=== PATIENT | male | born 1980 | race American Indian/Alaskan Native ===

== ENCOUNTER 2017-01-24 07:04 | Emergency (ER) | payer OTHER ==
[2017-01-24 07:04] VITALS: BMI 23.4
[2017-01-24 07:41] VITALS: TEMP 97.6
--- NOTE | 2017-01-24 07:42 | ED PDOC ---
Arrival/HPI - General Chief Complaint: Abdominal Pain Time Seen by Provider: 01/24/17 07:09 - History of Present Illness Narrative History of Present Illness (Text): 36 year old male with a past medical history significant for peptic ulcer disease, cardiomyopathy (unspecified) with estimated LVEF of 37.5%, malignant hypertension (confirmed by renal biopsy) who presents with 9 days of upper abdominal pain. He was just starting his meal and drank a few sips of some warm [place] soup, and within seconds developed some acute throbbing, namely midline abdominal pain. The pain has been constant, improves with belching, not improved with Antacids, worsened with lying supine, eating, or fasting for more than 5 hours. Yesterday, he took Nexium on a full-stomach and felt worse. He denies any associated chest pain, dyspnea, diaphoresis, nausea, or vomiting. In the past he took Prevacid in preventing these attacks. 01/24/17 07:35 (Rebeka Rico) Past Medical History - Provider Review Nursing Documentation Reviewed: Yes - Infectious Disease Hx of Infectious Diseases: None - Tetanus Immunization Tetanus Immunization: Unknown - HEENT Hx HEENT Disorder: Yes (eyeglasses) - Musculoskeletal/Rheumatological Hx Falls: No - Psychiatric Hx Substance Use: (pt denied) - Anesthesia Hx Anesthesia: No Hx Anesthesia Reactions: No Hx Malignant Hyperthermia: No Family/Social History - Physician Review Nursing Documentation Reviewed: Yes Family/Social History: Hypertension Smoking Status: Light Smoker < 10 Cigarettes Daily Hx Alcohol Use: Yes (social) Hx Substance Use: (pt denied) Allergies/Home Meds Allergies/Adverse Reactions: Allergies No Known Allergies Allergy (Verified 01/24/17 07:37) Home Medications: Home Meds Medication Instructions Recorded Confirmed Lisinopril [Zestril] 30 mg PO DAILY 01/24/17 01/24/17 hydroCHLOROthiazide [Hydrodiuril] 25 mg PO DAILY 01/24/17 01/24/17 Review of Systems - Review of Systems Constitutional: Normal. absent: Weight Change, Fevers, Night Sweats ENT: Normal. absent: Sore Throat, Rhinorrhea Cardiovascular: Normal. absent: Chest Pain, Palpitations, Edema Gastrointestinal: Abdominal Pain, Food Intolerance. absent: Constipation, Diarrhea, Hematochezia, Hematemesis Genitourinary Male: absent: Dysuria, Frequency, Hematuria Musculoskeletal: absent: Arthralgias, Back Pain Skin: Normal. absent: Rash, Pruritis, Skin Lesions Neurological: Normal. absent: Headache, Dizziness, Focal Weakness Endocrine: absent: Diaphoresis, Polyuria, Polydipsia Hemo/Lymphatic: absent: Easy Bleeding, Easy Bruising Psychiatric: absent: Anxiety, Depression Physical Exam Vital Signs Reviewed: Yes Temperature: Afebrile Blood Pressure: Hypertensive Pulse: Regular Respiratory Rate: Normal Appearance: Positive for: Non-Toxic, Comfortable Pain Distress: Mild Mental Status: Positive for: Alert and Oriented X 3 - Systems Exam Head: Present: Atraumatic, Normocephalic Pupils: Present: PERRL Extroacular Muscles: Present: EOMI Conjunctiva: Present: Normal Mouth: Present: Moist Mucous Membranes Pharnyx: Present: Normal. No: ERYTHEMA, EXUDATE Respiratory/Chest: Present: Clear to Auscultation, Good Air Exchange. No: Respiratory Distress Cardiovascular: Present: Regular Rate and Rhythm, Normal S1, S2 Abdomen: Present: Tenderness, Normal Bowel Sounds. No: Distention, Peritoneal Signs, McBurney's Point Tender Back: Present: Normal Inspection. No: CVA Tenderness Upper Extremity: Present: Normal Inspection. No: Cyanosis, Edema Lower Extremity: Present: Normal Inspection. No: Edema, CALF TENDERNESS Neurological: Present: CN II-XII Intact, Speech Normal Skin: Present: Warm, Dry, Normal Color Psychiatric: Present: Alert, Oriented x 3, Normal Insight Vital Signs Temp Pulse Resp BP Pulse Ox 01/24/17 13:00 78 18 144/77 99 01/24/17 11:04 62 18 123/78 98 01/24/17 09:31 177/121 H 01/24/17 08:45 191/135 H 01/24/17 07:26 97.6 F 99 H 17 153/109 H 99 Medical Decision Making - EKG Interpretation Interpreted by ED Physician: Yes Type: 12 lead EKG ED Course and Treatment: EKG shows LVH with strain, T-wave inversions in leads V5 and V6, asymmetrical rise and fall of T-waves, no interval change compared to prior EKG. 01/24/17 08:04 Labs show relative hemoconcentration: H/H of 17.7/48.0; BUN/Cr of 35/2.0. 1 L of Normal Saline being administered. Pepcid 20 mg IVP given. 0.1 PO of Clonidine given for blood pressure of 190/135, followed by 0.2 of Clonidine. 01/24/17 09:09 Current, blood pressure is 120/80. Will continue to monitor patient. 01/24/17 12:25 (Rebeka Rico) Patient Seen With Resident: In agreement with resident note which contains more details about the patient. Patient was seen and evaluated with resident. Came up with plan and treatment together. Patient on my examination reports abdominal pain WORSE WITH EATING NOT EXERTION. He has significant past history of hypertension, cardiac disease, although on current exam he has no chest pain or sob or exertional symptoms. Abnormal EKG noted but similar to past EKG and I feel with clinical correlation EKG likely LVH with strain pattern as no chest pain or sob with exertion, and symptoms only with meals. Pain MILD. No pulsatile masses. No motor or sensory deficits on exam. CT abdomen reviewed no free air or obstruction. BP controlled with serial exams after medication. Patient states to me he has not had BM for three days, not typical for him. Given CT findings, suspect component of PUD/Gastritis with constipation. Will d/c with PPI, stool softener, follow-up with PMD. Stressed need for GI follow-up given symptoms to r/o PUD, mass/malignancy although as comfortable with no systemic symptoms and BP controlled will discharge with close follow-up. (Bertram Sheppard) - Lab Interpretations Lab Results: 01/24/17 07:58 01/24/17 07:58 Lab Results 01/24/17 09:40: Urine Color yellow, Urine Appearance Clear, Urine pH 6.5, Ur Specific [place] <= 1.005, Urine Protein Negative, Urine Glucose (UA) Negative, Urine Ketones Negative, Urine Blood Negative, Urine Nitrate Negative, Urine Bilirubin Negative, Urine Urobilinogen 0.2, Ur Leukocyte Esterase Negative 01/24/17 07:58: Sodium 133, Potassium 4.3, Chloride 93 L, Carbon Dioxide 30, Anion Gap 14, BUN 35 H, Creatinine 2.0 H, Est GFR ( Amer) 47, Est GFR ( Non-Af Amer) 38, Random Glucose 106, Calcium 9.8, Total Bilirubin 0.7, AST 38, ALT 43, Alkaline Phosphatase 75, Lactate Dehydrogenase 477, Total Creatine Kinase 168, Troponin I 0.05 D, Total Protein 8.1, Albumin 4.7, Globulin 3.4, Albumin/Globulin Ratio 1.4, Lipase 168 01/24/17 07:58: WBC 9.2, RBC 5.27, Hgb 17.7, Hct 48.0, MCV 91.1, MCH 33.6, MCHC 36.9, RDW 12.3, Plt Count 302, MPV 7.6, Gran % 67.6, Lymph % (Auto) 21.9 L, [place] % (Auto) 7.5 H, Eos % (Auto) 2.8, Baso % (Auto) 0.2, Gran # 6.22, Lymph # 2.0, Finney # 0.7 H, Eos # 0.3, Baso # 0.02 - RAD Interpretation Radiology Orders: 01/24/17 07:43 CHEST PORTABLE [RAD] Stat 01/24/17 09:39 ABD & PELVIS W/O PO OR IV CONT [CT] Stat - Medication Orders Current Medication Orders: Discontinued Medications Clonidine HCl (Catapres) 0.1 mg PO STAT STA Stop: 01/24/17 08:20 Last Admin: 01/24/17 08:45 Dose: 0.1 mg MAR Pulse and Blood Pressure Document 01/24/17 08:45 MB (Rec: 01/24/17 08:46 MB [id number]) Blood Pressure Blood Pressure (100/60-150/90 mm Hg) 191/135 Clonidine HCl (Catapres) 0.2 mg PO STAT STA Stop: 01/24/17 09:18 Last Admin: 01/24/17 09:31 Dose: 0.2 mg MAR Pulse and Blood Pressure Document 01/24/17 09:31 MB (Rec: 01/24/17 09:32 MB [id number]) Blood Pressure Blood Pressure (100/60-150/90 mm Hg) 177/121 Famotidine (Pepcid) 20 mg IVP STAT STA Stop: 01/24/17 07:45 Last Admin: 01/24/17 08:06 Dose: 20 mg IVP Administration Document 01/24/17 08:06 MB (Rec: 01/24/17 08:06 MB [id number]) Charges for Administration # of IVP Administrations 1 Famotidine (Pepcid) 20 mg IVP STAT STA Stop: 01/24/17 13:13 Last Admin: 01/24/17 13:36 Dose: Not Given Non-Admin Reason: Patient Refused Sodium Chloride (Sodium Chloride 0.9%) 1,000 mls @ 999 mls/hr IV .Q1H1M STA Stop: 01/24/17 09:21 Last Admin: 01/24/17 08:46 Dose: 999 mls/hr eMAR Start Stop Document 01/24/17 08:46 MB (Rec: 01/24/17 08:46 MB [id number]) Intravenous Solution Start Date 01/24/17 Start Time 08:46 Disposition/Present on Arrival - Present on Arrival Any Indicators Present on Arrival: No History of DVT/PE: No History of Uncontrolled Diabetes: No Urinary Catheter: No History Surgical Site Infection Following: None - Disposition Have Diagnosis and Disposition been Completed?: Yes Disposition Time: 13:17 Patient Plan: Discharge - Disposition Diagnosis: Abdominal pain, Gastritis, Constipation, Hypertension Disposition: HOME/ ROUTINE Condition: STABLE Discharge Instructions (ExitCare): Peptic Ulcer (ED), Diet for Ulcers and Gastritis (GEN) Additional Instructions: 1) Please follow up with your PMD within the next week 2) Take any prescribed medications as directed. 3) Please return to the ED for any worsening symptoms. Prescriptions: Docusate Sodium [Colace] 100 mg PO BID #10 capsule Famotidine [Pepcid] 20 mg PO DAILY #28 tab Forms: [employer] ([place]ian)
[2017-01-24 08:01] LABS: BASO # 0.02 K/mm3 (0.0-2.0); BASO % 0.2 % (0.0-3.0); EOS # 0.3 (0.0-0.7); EOS % 2.8 % (1.5-5.0); GRAN # 6.22 (1.4-6.5); GRAN % 67.6 % (50.0-68.0); LYMPH % 21.9 % (22.0-35.0); MEAN CELL VOLUME 91.1 fl (80.0-105.0); MEAN CORPUSCULAR HEMOGLOBIN 33.6 pg (25.0-35.0); MEAN CORPUSCULAR HGB CONC 36.9 g/dl (31.0-37.0); MEAN PLATELET VOLUME 7.6 fl (7.0-11.0); MONO # 0.7 (0.1-0.6); MONO % 7.5 % (1.0-6.0); RED CELL DISTRIBUTION WIDTH 12.3 % (11.5-14.5); WHITE BLOOD COUNT 9.2 10^3/ul (4.5-11.0)
[2017-01-24 08:13] LABS: ALB/GLOB RATIO 1.4 (1.1-1.8); BILIRUBIN,TOTAL 0.7 mg/dL (0.2-1.3); CALCIUM 9.8 mg/dL (8.4-10.5); POTASSIUM 4.3 mmol/L (3.6-5.0); TOTAL PROTEIN 8.1 g/dL (5.8-8.3)
[2017-01-24] MEDS ORDERED: Sodium Chloride 0.9% 1,000 ML IV STA (08:21)
[2017-01-24 08:24] LABS: TROPONIN I 0.05 ng/mL
[2017-01-24 09:48] LABS: PH,URINE 6.5 (4.7-8.0); URINE BILIRUBIN NEGATIVE (NEGATIVE); URINE BLOOD NEGATIVE (NEGATIVE); URINE GLUCOSE (UA) NEGATIVE (NEGATIVE); URINE KETONE NEGATIVE (NEGATIVE); URINE LEUKOCYTE ESTERASE NEGATIVE Leu/uL (NEGATIVE); URINE PROTEIN NEGATIVE mg/dL (<30 mg/dL); URINE UROBILINOGEN 0.2 E.U./dL (<1 E.U./dL)
[2017-01-24 10:09] LABS: URINE APPEARANCE CLEAR (CLEAR)
--- NOTE | 2017-01-24 10:43 | CT ---
PROCEDURE: CT abdomen and pelvis dated 01/24/2017. HISTORY: Abdominal pain. Radiating to flank COMPARISON: . Delete Comparison made with CT scan the abdomen and pelvis 05/09/2016 TECHNIQUE: Contiguous axial images of the abdomen and pelvis. Oral contrast was administered. No IV contrast given. Coronal and Sagittal reformats generated. Radiation dose: Total exam DLP = mGy-cm. This CT exam was performed using one or more of the following dose reduction techniques: Automated exposure control, adjustment of the mA and/or kV according to patient size, and/or use of iterative reconstruction technique. Total exam DLP = 267.48 mGy-cm. FINDINGS: LOWER THORAX: . No infiltrate effusion or basilar pneumothorax. Tiny hiatal hernia. LIVER: Unremarkable. No gross lesion or ductal dilatation. GALLBLADDER AND BILE DUCTS: Unremarkable. PANCREAS: Unremarkable. No mass. No ductal dilatation. SPLEEN: Unremarkable. No splenomegaly. ADRENALS: Unremarkable. KIDNEYS AND URETERS: Unremarkable. No stone or hydronephrosis. BLADDER: Urinary bladder is incompletely distended which may account for slight thick-walled appearance. Muscular hypertrophy may contribute. Possibility of cystitis not excluded. Clinic correlation urinalysis. REPRODUCTIVE: Prostate gland measures approximately 4 cm in transverse dimension. APPENDIX: Normal appendix (best seen on axial image number [id number]. BOWEL: Evaluation of the bowel is limited due to the lack of oral contrast material. Stomach is incompletely distended which presumably accounts for thick-walled appearance. Gastritis or other intrinsic/invasive wall lesion not excluded. Visualized loops of small bowel exhibit normal contour and caliber. No evidence of acute mechanical small bowel obstruction. Moderate amount of stool seen within the cecum and ascending colon suggesting mild fecal retention/constipation. PERITONEUM: Unremarkable. No fluid collection. No free air. Small fat containing umbilical hernia. LYMPH NODES: Unremarkable. No enlarged lymph nodes. VASCULATURE: Unremarkable. No aortic aneurysm. BONES: No fracture or destructive lesion. OTHER FINDINGS: None. IMPRESSION: Tiny approximately 2.75 nonobstructing calculus posteromedial aspect midpole right kidney without evidence of hydronephrosis. . Findings suggest mild constipation as detailed above
--- NOTE | 2017-01-24 11:14 | RAD ---
HISTORY: upper abdominal pain in patient with CAD COMPARISON: No prior. FINDINGS: LUNGS: No active pulmonary disease. PLEURA: No significant pleural effusion identified, no pneumothorax apparent. CARDIOVASCULAR: Normal. OSSEOUS STRUCTURES: No significant abnormalities. VISUALIZED UPPER ABDOMEN: Normal. OTHER FINDINGS: None. IMPRESSION: No active disease.
[2017-01-24 11:17] VITALS: RESP 18
[2017-01-24 13:05] VITALS: BP 144/77; PULSE 78; O2SAT 99
--- NOTE | 2017-01-25 12:26 | CARD ---
APPROVED REPORT EKG Measurement Heart [id number] <Conclusion> Normal sinus rhythm Right atrial enlargement Left ventricular hypertrophy with repolarization abnormality Abnormal ECG
== END 2017-01-24 13:37 | disposition home or self-care (01) ==
LOC: ED 07:04
DX: R10.9 Unspecified abdominal pain (principal); K29.70 Gastritis, unspecified, without bleeding; K59.00 Constipation, unspecified; I10 Essential (primary) hypertension; F17.210 Nicotine dependence, cigarettes, uncomplicated
CPT/HCPCS: 71010; 74176; 80053; 81003; 82550; 83615; 83690; 84484; 85025; 93005; 96374; 99284; J7040

== ENCOUNTER 2017-06-23 13:13 | Inpatient (IN) | payer MEDICAID, OTHER ==
[2017-06-23] MEDS ORDERED: Albuterol-Ipratrop 3 mg / 0.5 (3 ml) UD IH STA (13:34)
[2017-06-23] MEDS ORDERED: Labetalol 5 mg/ml Inj 20ML IV STA (13:35)
[2017-06-23] MEDS ORDERED: Nitroglycerin 50mg in D5W 50 MG/250 ML BOTTLE IV PRN (13:36)
--- NOTE | 2017-06-23 13:39 | ED PDOC ---
Arrival/HPI - General Chief Complaint: High Blood Pressure Time Seen by Provider: 06/23/17 13:29 Historian: Patient - History of Present Illness Narrative History of Present Illness (Text): 06/23/17 13:37 pt p/w + ~ 1 week onset of intermittent dizziness/lightheadedness, general malaise/weakness; + 3 days onset of productive coughing (+ whitish and at times bloody streaks); no fever/chills/sweats, + intermittent cp/chest pressure, mild sob, no palpitations, no abd pain, no n/v, no appetite, + 10lbs of weight loss over 6 months; pt denied urinary/bowel changes, no incontience; pt denied other complaints; pt is here for further eval. PCP: clinic no insurance pt's bp usually ~ 150s pt is right hand dominate Time/Duration: 1 week Symptom Onset: Gradual Symptom Course: Worsening Severity Level: 6 Activities at Onset: Rest Context: Home Past Medical History - Provider Review Nursing Documentation Reviewed: Yes - Travel History Have you recently traveled outside [place] w/in the past 3 mons?: No - Past History Past History: No Previous - Infectious Disease Hx of Infectious Diseases: None - Tetanus Immunization Tetanus Immunization: Unknown - Cardiac Hx Hypertension: Yes - HEENT Hx HEENT Disorder: Yes (eyeglasses) - Musculoskeletal/Rheumatological Hx Falls: No - Psychiatric Hx Psychophysiologic Disorder: No Hx Substance Use: (pt denied) - Anesthesia Hx Anesthesia: No Hx Anesthesia Reactions: No Hx Malignant Hyperthermia: No Family/Social History - Physician Review Nursing Documentation Reviewed: Yes Family/Social History: No Known Family HX Smoking Status: Light Smoker < 10 Cigarettes Daily Hx Alcohol Use: Yes (social) Hx Substance Use: No (pt denied) Hx Substance Use Treatment: No Allergies/Home Meds Allergies/Adverse Reactions: Allergies No Known Allergies Allergy (Verified 06/23/17 13:24) Home Medications: Home Meds Medication Instructions Recorded Confirmed Simvastatin [Zocor] 1 tab PO HS 06/23/17 06/23/17 cloNIDine [Catapres] 1 tab PO TID 06/23/17 06/23/17 hydrALAZINE [Apresoline] 1 tab PO TID 06/23/17 06/23/17 Review of Systems - Review of Systems Constitutional: Fatigue, Weight Change Eyes: Normal ENT: Normal Respiratory: SOB, Cough, Sputum. absent: Wheezing Cardiovascular: Chest Pain Gastrointestinal: Normal Genitourinary Male: Normal Musculoskeletal: Normal Skin: Normal Neurological: Dizziness Endocrine: Normal Hemo/Lymphatic: Normal Psychiatric: Normal Physical Exam Vital Signs Reviewed: Yes Vital Signs Temp Pulse Pulse Resp BP Pulse Ox 06/23/17 15:16 99 H 06/23/17 15:12 91 H 18 179/126 H 94 L 06/23/17 14:41 92 H 92 L 06/23/17 14:29 84 211/150 H 06/23/17 14:16 85 211/150 H 06/23/17 14:08 106 H 248/177 H 06/23/17 13:25 98.6 F 104 H 17 250/173 H 95 Temperature: Afebrile Blood Pressure: Hypertensive Pulse: Tachycardic Respiratory Rate: Normal Appearance: Positive for: Well-Appearing, Uncomfortable, Cachectic, Other (alert /awake, Uncomfortable, mild distress due to coughing/pain, GCS = 15, oriented x 3) Pain Distress: Mild Mental Status: Positive for: Alert and Oriented X 3 - Systems Exam Head: Present: Atraumatic, Normocephalic, Other (mild bi-temporal wasting) Pupils: Present: PERRL, Other (wearing eyeglasses, no nystagmus, no photophobia , sclera anicteri) Extroacular Muscles: Present: EOMI Conjunctiva: Present: Normal Ears: Present: Normal Mouth: Present: Normal Teeth, Other (mild dry oral mucosa, no drooling/stridor, no exudate/lesions, uvula/tongue are midline) Pharnyx: Present: Normal Nose (External): Present: Atraumatic Nose (Internal): Present: Normal Inspection Neck: Present: Normal Range of Motion, Trachea Midline, Other (no meningeal signs, no midline tenderness, no step off, intact ROM). No: MIDLINE TENDERNESS Respiratory/Chest: Present: Good Air Exchange, Other (mild asymmetric breath sounds, right > left; no wheezing/rales/rhonchi; no accessory muscle use noted, no tachypenia) Cardiovascular: Present: Regular Rate and Rhythm, Normal S1, S2, Other (+ reproducible left lower chest wall/posterior chest wall point tenderness on exam , no crepitus noted, no gross deformities noted). No: Murmurs Abdomen: Present: Normal Bowel Sounds, Other (thin male, no focal tenderness, no dubose's sign, no mcburney's point tenderness, no masses/rebound/guarding/ rigidity) Back: Present: Normal Inspection, Other (no step off, intact ROM, no midline tenderness). No: CVA Tenderness, Midline Tenderness Upper Extremity: Present: Normal Inspection, Normal ROM, NORMAL PULSES, Neurovascularly Intact, Capillary Refill < 2s Lower Extremity: Present: Normal Inspection, NORMAL PULSES, Normal ROM, Neurovascularly Intact, Capillary Refill < 2 s Neurological: Present: GCS=15, CN II-XII Intact, Speech Normal Skin: Present: Warm, Normal Color, Other (cap refill ~ 1 sec, no ulcerations, no petechiae, mild pallor) Psychiatric: Present: Alert, Oriented x 3 Medical Decision Making ED Course and Treatment: 06/23/17 13:37 Impression: chest pain, dizziness, coughing i have consider all the differential diagnosis regarding pt's chief medical complaints/clinical findings, including but are not limited to: chest pain, dizziness, coughing A/P: chest pain, r/o acs; elevated BP; coughing - labs - iv - acs eval - xray - observe - supportive care 06/23/17 14:32 pt is currently comfortable pt denied chest pain currently I spoke to Dr Tesfaye, ICU attending staff sonographer, made aware, agrees with admission , would like patient on Cardene/recommend CT head and UDS i spoke to Dr Batista, hospitalists staff sonographer, made aware, agrees with admission, would like Cards consult I spoke to Dr IRVERA, cards staff sonographer, made aware, agrees with ED mgt/txt, will see patient 06/23/17 15:47 pt is currently comfortable pt denied chest pain vital signs gradually improving pt is made aware of his medical results agrees with admission/ICU placement Re-evaluation Time: 14:50 Reassessment Condition: Improving,but remains with symptoms - Critical Care Critical Care Minutes: 60 minutes Critical Care Time: Excluding Proc Time Narrative Critical Care (Text): 06/23/17 14:50 critical care time: 60min, excluding procedure time, excluding time teaching residents/students/mid-level providers; including initial eval/diagnosis, diagnostic interpretation, re-eval, consultations, final disposition 06/23/17 14:50 - Lab Interpretations Lab Results: 06/23/17 13:30 06/23/17 13:30 Lab Results 06/23/17 13:30: Urine Opiates Screen Negative, Urine Methadone Screen Negative, Ur Barbiturates Screen Negative, Ur Phencyclidine Scrn Negative, Ur Amphetamines Screen Negative, U Benzodiazepines Scrn Negative, U Oth Cocaine Metabols Negative, U Cannabinoids Screen Positive H 06/23/17 13:30: Urine Color Yellow, Urine Appearance Clear, Urine pH 7.0, Ur Specific [place] 1.015, Urine Protein >=300 H, Urine Glucose (UA) Negative, Urine Ketones Trace H, Urine Blood Large H, Urine Nitrate Negative, Urine Bilirubin Negative, Urine Urobilinogen 0.2, Ur Leukocyte Esterase Negative, Urine RBC 15 - 20, Urine WBC 0 - 2, Ur Epithelial Cells 0 - 2, Urine Bacteria Few 06/23/17 13:30: Sodium 124 L, Chloride 84 L, Potassium 3.2 L, Carbon Dioxide 31 , Anion Gap 11, BUN 35 H, Creatinine 2.6 H, Est GFR ( Amer) 34, Est GFR ( Non-Af Amer) 28, Random Glucose 107, Calcium 10.1, Total Bilirubin 1.4 H, AST 89 H D, ALT 59 H, Alkaline Phosphatase 111, Lactate Dehydrogenase 3154 H, Total Creatine Kinase 1067 H, CK-MB (CK-2) 4.9 H, CK-MB (CK-2) % Cancelled, Troponin I 0.53 H* D, NT-Pro-B Natriuret Pep 20204 H, Total Protein 8.1, Albumin 4.3, Globulin 3.8, Albumin/Globulin Ratio 1.1 06/23/17 13:30: pO2 28 L, VBG pH 7.46 H, VBG pCO2 43.0, VBG HCO3 30.6 H, VBG Total CO2 31.9 H, VBG O2 Sat (Calc) 61.2, VBG Base Excess 6.0 H, VBG Potassium 3.2 L, Sodium 124.0 L, Chloride 86.0 L, Glucose 108, Lactate 1.3, FiO2 21.0, Venous Blood Potassium 3.2 L 06/23/17 13:30: PT 12.9 H, INR 1.13 H, APTT 26.1 06/23/17 13:30: WBC 9.9, RBC 4.47, Hgb 14.6 D, Hct 40.5 L, MCV 90.6, MCH 32.7, MCHC 36.0, RDW 13.6, Plt Count 116 L, MPV 10.8, Gran % 78.4 H, Lymph % (Auto) 13.7 L, [place] % (Auto) 7.5 H, Eos % (Auto) 0.2 L, Baso % (Auto) 0.2, Gran # 7.76 H, Lymph # (Auto) 1.4, [place] # (Auto) 0.7 H, Eos # (Auto) 0.0, Baso # (Auto) 0.02 I have reviewed the lab results: Yes Interpretation: Abnormal lab values (decr Na, elevated BUN/creat; elevated LDH/ CK/TROP; elevated BNP; + cannabis) - RAD Interpretation Narrative RAD Interpretations (Text): 06/23/17 14:51 HISTORY: cough, chest pain, elevated BP COMPARISON: 01/24/2017 FINDINGS: LUNGS: No active pulmonary disease. PLEURA: No significant pleural effusion identified, no pneumothorax apparent. CARDIOVASCULAR: No radiographic findings to suggest acute or significant cardiovascular disease. OSSEOUS STRUCTURES: No significant abnormalities. VISUALIZED UPPER ABDOMEN: Normal. OTHER FINDINGS: None. IMPRESSION: No active disease. No significant interval change compared to the prior examination(s). 06/23/17 15:44 PROCEDURE: CT HEAD WITHOUT CONTRAST. HISTORY: dizziness, elevated bp COMPARISON: 05/09/2016 TECHNIQUE: Axial computed tomography images were obtained through the head/brain without intravenous contrast. Radiation dose: Total exam DLP = 813.36 no mGy-cm. This CT exam was performed using one or more of the following dose reduction techniques: Automated exposure control, adjustment of the mA and/or kV according to patient size, and/or use of iterative reconstruction technique. FINDINGS: HEMORRHAGE: No intracranial hemorrhage. BRAIN: No mass effect or edema. Stable focal encephalomalacia change left temporal lobe. Prominent ramirez white matter differentiation can be seen with demyelinating disease. However, the findings are stable compared to the prior study. VENTRICLES: Unremarkable. No hydrocephalus. CALVARIUM: Unremarkable. PARANASAL SINUSES: Unremarkable as visualized. No significant inflammatory changes. MASTOID AIR CELLS: Unremarkable as visualized. No inflammatory changes. OTHER FINDINGS: None. IMPRESSION: 1. No acute or significant interval changes compared to the prior study. 2. Chronic changes with focal encephalomalacia left temporal lobe. No evidence of acute hemorrhagic process. Demyelinating disease is should be considered. Radiology Orders: 06/23/17 13:35 CHEST PORTABLE [RAD] Stat 06/23/17 14:19 HEAD W/O CONTRAST [CT] Stat Wire Wrapping Machine Operator: Radiologist - EKG Interpretation EKG Interpretation (Text): 06/23/17 13:38 Sinus tach at 105 bpm, normal axis, no ectopy, voltage criteria LVH, inverted T in leads I, L, III, V4-6, ? early repoloration vs abnl ST changes; ABNL EKG; no gross changes compare with old EKG 01/2017 Interpreted by ED Physician: Yes Type: 12 lead EKG Comparison: Similar to previous EKG - Medication Orders Current Medication Orders: Aspirin (Aspirin Chewable) 81 mg PO DAILY TATIANNA Atorvastatin Calcium (Lipitor) 40 mg PO DIN TATIANNA Heparin Sodium (Porcine) (Heparin) 5,000 units SC Q12 TATIANNA PRN Reason: Protocol Azithromycin (Zithromax 500mg In Ns) 500 mg in 250 mls @ 167 mls/hr IVPB STAT STA PRN Reason: Protocol Stop: 06/23/17 15:50 Nicardipine HCl (Cardene Iv Premix) 20 mg in 200 mls @ 50 mls/hr IV .Q4H PRN; Protocol; 5 MG/HR PRN Reason: TITRATE PER MD ORDER Last Admin: 06/23/17 14:29 Dose: 50 mls/hr eMAR Start Stop Document 06/23/17 14:29 [facility] (Rec: 06/23/17 14:29 [facility] [id number]) Intravenous Solution Start Date 06/23/17 Start Time 14:29 MAR Pulse and Blood Pressure Document 06/23/17 14:29 [facility] (Rec: 06/23/17 14:29 [facility] [id number]) Pulse Pulse Rate (60-90) 84 Blood Pressure Blood Pressure (100/60-150/90) 211/150 Pantoprazole Sodium (Protonix Ec Tab) 40 mg PO 0600 TATIANNA Discontinued Medications Albuterol/Ipratropium (Duoneb 3 Mg/0.5 Mg (3 Ml) Ud) 3 ml IH STAT STA Stop: 06/23/17 13:35 Last Admin: 06/23/17 14:08 Dose: 3 ml Aspirin (Ecotrin) 81 mg PO STAT STA Stop: 06/23/17 13:35 Last Admin: 06/23/17 14:08 Dose: 81 mg Nitroglycerin/Dextrose (Nitroglycerin 50 Mg/250 Ml D5w) 50 mg in 250 mls @ 1.5 mls/hr IV .Q24H PRN; Protocol; 5 MCG/MIN PRN Reason: Dizziness Last Admin: 06/23/17 14:16 Dose: 1.5 mls/hr eMAR Start Stop Document 06/23/17 14:16 [facility] (Rec: 06/23/17 14:17 [facility] [id number]) Intravenous Solution Start Date 06/23/17 Start Time 14:17 MAR Pulse and Blood Pressure Document 06/23/17 14:16 [facility] (Rec: 06/23/17 14:17 [facility] [id number]) Pulse Pulse Rate (60-90) 85 Blood Pressure Blood Pressure (100/60-150/90) 211/150 Ceftriaxone Sodium (Rocephin 1 Gram Ivpb) 1 gm in 100 mls @ 200 mls/hr IVPB STAT STA PRN Reason: Protocol Stop: 06/23/17 14:49 Last Admin: 06/23/17 14:29 Dose: 200 mls/hr eMAR Start Stop Document 06/23/17 14:29 L[facility] (Rec: 06/23/17 14:29 [facility] [id number]) Intravenous Solution Start Date 06/23/17 Start Time 14:29 End Date 06/23/17 End time 15:00 Total Infusion Time 31 Labetalol HCl (Trandate) 20 mg IV STAT STA Stop: 06/23/17 13:36 Last Admin: 06/23/17 14:08 Dose: 20 mg eMAR Start Stop Document 06/23/17 14:08 [facility] (Rec: 06/23/17 14:09 [facility] [id number]) Intravenous Solution Start Date 06/23/17 Start Time 14:09 MAR Pulse and Blood Pressure Document 06/23/17 14:08 [facility] (Rec: 06/23/17 14:09 [facility] [id number]) Pulse Pulse Rate (60-90) 106 Blood Pressure Blood Pressure (100/60-150/90) 248/177 Disposition/Present on Arrival - Present on Arrival Any Indicators Present on Arrival: No History of DVT/PE: No History of Uncontrolled Diabetes: No Urinary Catheter: No History of Decub. Ulcer: No History Surgical Site Infection Following: None - Disposition Have Diagnosis and Disposition been Completed?: Yes Diagnosis: Hypertensive emergency, Elevated troponin, Renal failure, Hyponatremia, Weakness Disposition: HOSPITALIZED Disposition Time: 14:34 Patient Plan: Admission, ICU Patient Problems: Current Active Problems Problem Status Onset Elevated troponin Acute Hypertensive emergency Acute Hyponatremia Acute Renal failure Acute Weakness Acute Condition: STABLE
[2017-06-23 13:54] LABS: VENOUS BLOOD GAS PO2 28 mm/Hg (30-55); VENOUS BLOOD PH 7.46 (7.32-7.43)
[2017-06-23 13:55] LABS: URINE BILIRUBIN NEGATIVE (NEGATIVE); URINE BLOOD LARGE (NEGATIVE); URINE GLUCOSE (UA) NEGATIVE (NEGATIVE); URINE LEUKOCYTE ESTERASE NEGATIVE Leu/uL (NEGATIVE); URINE PROTEIN >=300 mg/dL (<30 mg/dL); URINE UROBILINOGEN 0.2 E.U./dL (<1 E.U./dL)
[2017-06-23 13:56] LABS: URINE APPEARANCE CLEAR (CLEAR); URINE COLOR YELLOW (YELLOW)
[2017-06-23 13:59] LABS: BASO % 0.2 % (0.0-3.0); EOS % 0.2 % (1.5-5.0); GRAN # 7.76 (1.4-6.5); GRAN % 78.4 % (50.0-68.0); HEMOGLOBIN 14.6 g/dL (14.0-18.0); LYMPH # 1.4 (1.2-3.4); LYMPH % 13.7 % (22.0-35.0); MEAN CELL VOLUME 90.6 fl (80.0-105.0); MEAN CORPUSCULAR HEMOGLOBIN 32.7 pg (25.0-35.0); MEAN PLATELET VOLUME 10.8 fl (7.0-11.0); MONO % 7.5 % (1.0-6.0); RBC 4.47 10^6/uL (3.5-6.1); RED CELL DISTRIBUTION WIDTH 13.6 % (11.5-14.5); WHITE BLOOD COUNT 9.9 10^3/ul (4.5-11.0)
[2017-06-23 14:00] LABS: BASO # 0.02 K/mm3 (0.0-2.0); MONO # 0.7 (0.1-0.6)
[2017-06-23 14:04] LABS: INR 1.13 (0.93-1.08); PARTIAL THROMBOPLASTIN TIME 26.1 Seconds (25.1-36.5); PROTHROMBIN TIME 12.9 SECONDS (9.4-12.5)
[2017-06-23 14:05] LABS: ALB/GLOB RATIO 1.1 (1.1-1.8); ALBUMIN 4.3 g/dL (3.0-4.8); CALCIUM 10.1 mg/dL (8.4-10.5)
[2017-06-23 14:09] LABS: URINE BACTERIA FEW (NEG); URINE EPITHELIAL CELLS 0 - 2 /hpf (0-5); URINE RBC 15 - 20 /hpf (0-2); URINE WBC 0 - 2 /hpf (0-6)
[2017-06-23] MEDS ORDERED: cefTRIAXone 1 gm 1 GM/100 ML BAG IVPB STA (14:20)
[2017-06-23] MEDS ORDERED: Azithromycin 500MG/NS 250ml 500 MG/250 ML BAG IVPB STA (14:21)
--- NOTE | 2017-06-23 14:23 | RAD ---
HISTORY: cough, chest pain, elevated BP COMPARISON: 01/24/2017 FINDINGS: LUNGS: No active pulmonary disease. PLEURA: No significant pleural effusion identified, no pneumothorax apparent. CARDIOVASCULAR: No radiographic findings to suggest acute or significant cardiovascular disease. OSSEOUS STRUCTURES: No significant abnormalities. VISUALIZED UPPER ABDOMEN: Normal. OTHER FINDINGS: None. IMPRESSION: No active disease. No significant interval change compared to the prior examination(s).
[2017-06-23 14:27] LABS: CK-MB 4.9 ng/mL (0.0-3.6)
[2017-06-23] MEDS: Nicardipine 20 MG/200 ML 20 MG/200 ML BAG IV PRN ×3 (14:29→23:15)
--- NOTE | 2017-06-23 15:02 | CP.PCM.CON ---
History of Present Illness - History of Present Illness History of Present Illness: CRITICAL CARE CONSULT NOTE HPI Patient is 37yo male, with PMHx of non obstructive CAD, CKD, baseline Cr 2, HTN , on multiple home PO BP meds, presents after being sent in from PMDs office for elevated BP. As per ER staff SBP 270s in the field, patient complaining of SOB, denies cp, palpitations, DALAL, dizziness. Pt reports he took his BP meds today in the morning. Has had cough for 1 week, without any mucus production. No other constitutional symptoms. In the ER SBP 250, started on Cardene drip. PMHx as above PSHx as above Allergies NKDA Meds as per EMR ROS as above FHx NC Review of Systems - Review of Systems Review of Systems: as per HPI Past Patient History - Infectious Disease Hx of Infectious Diseases: None - Tetanus Immunizations Tetanus Immunization: Unknown - Past Medical History & Family History Past Medical History?: Yes - Past Social History Smoking Status: Light Smoker < 10 Cigarettes Daily - CARDIAC Hx Hypertension: Yes - HEENT Hx HEENT Problems: Yes (eyeglasses) - MUSCULOSKELETAL/RHEUMATOLOGICAL Hx Falls: No - GASTROINTESTINAL Hx Ulcer: Yes - PSYCHIATRIC Hx Psychophysiologic Disorder: No Hx Substance Use: No (pt denied) - SURGICAL HISTORY Hx Surgeries: No - ANESTHESIA Hx Anesthesia: No Hx Anesthesia Reactions: No Hx Malignant Hyperthermia: No Meds Allergies/Adverse Reactions: Allergies Allergy/AdvReac Type Severity Reaction Status Date / Time No Known Allergies Allergy Verified 06/23/17 13:24 - Medications Medications: Current Medications Azithromycin (Zithromax 500mg In Ns) 500 mg in 250 mls @ 167 mls/hr IVPB STAT STA PRN Reason: Protocol Stop: 06/23/17 15:50 Nicardipine HCl (Cardene Iv Premix) 20 mg in 200 mls @ 50 mls/hr IV .Q4H PRN; Protocol; 5 MG/HR PRN Reason: TITRATE PER MD ORDER Last Admin: 06/23/17 14:29 Dose: 50 mls/hr Physical Exam - Constitutional Appears: Non-toxic, No Acute Distress - Head Exam Head Exam: NORMAL INSPECTION - Eye Exam Eye Exam: Normal appearance - ENT Exam ENT Exam: Mucous Membranes Moist - Respiratory Exam Respiratory Exam: Clear to Auscultation Bilateral, NORMAL BREATHING PATTERN - Cardiovascular Exam Cardiovascular Exam: REGULAR RHYTHM, +S1, +S2 - GI/Abdominal Exam GI & Abdominal Exam: Normal Bowel Sounds, Soft - Extremities Exam Extremities exam: Positive for: normal inspection - Neurological Exam Neurological exam: Alert, Oriented x3 Results - Vital Signs Recent Vital Signs: Last Vital Signs Temp 98.6 F 06/23/17 13:25 Pulse 84 06/23/17 14:29 Resp 17 06/23/17 13:25 BP 211/150 H 06/23/17 14:29 Pulse Ox 95 06/23/17 13:25 - Labs Result Diagrams: 06/23/17 13:30 06/23/17 13:30 Labs: Laboratory Results - last 24 hr 06/23/17 06/23/17 06/23/17 13:30 13:30 13:30 WBC 9.9 RBC 4.47 Hgb 14.6 D Hct 40.5 L MCV 90.6 MCH 32.7 MCHC 36.0 RDW 13.6 Plt Count 116 L MPV 10.8 Gran % 78.4 H Lymph % (Auto) 13.7 L [place] % (Auto) 7.5 H Eos % (Auto) 0.2 L Baso % (Auto) 0.2 Gran # 7.76 H Lymph # (Auto) 1.4 [place] # (Auto) 0.7 H Eos # (Auto) 0.0 Baso # (Auto) 0.02 PT 12.9 H INR 1.13 H APTT 26.1 pO2 28 L VBG pH 7.46 H VBG pCO2 43.0 VBG HCO3 30.6 H VBG Total CO2 31.9 H VBG O2 Sat (Calc) 61.2 VBG Base Excess 6.0 H VBG Potassium 3.2 L Sodium 124.0 L Chloride 86.0 L Glucose 108 Lactate 1.3 FiO2 21.0 Potassium Carbon Dioxide Anion Gap BUN Creatinine Est GFR ( Amer) Est GFR (Non-Af Amer) Random Glucose Calcium Total Bilirubin AST ALT Alkaline Phosphatase Lactate Dehydrogenase Total Creatine Kinase CK-MB (CK-2) CK-MB (CK-2) % Troponin I Total Protein Albumin Globulin Albumin/Globulin Ratio Venous Blood Potassium 3.2 L Urine Color Urine Appearance Urine pH Ur Specific [place] Urine Protein Urine Glucose (UA) Urine Ketones Urine Blood Urine Nitrate Urine Bilirubin Urine Urobilinogen Ur Leukocyte Esterase Urine RBC Urine WBC Ur Epithelial Cells Urine Bacteria 06/23/17 06/23/17 13:30 13:30 WBC RBC Hgb Hct MCV MCH MCHC RDW Plt Count MPV Gran % Lymph % (Auto) [place] % (Auto) Eos % (Auto) Baso % (Auto) Gran # Lymph # (Auto) [place] # (Auto) Eos # (Auto) Baso # (Auto) PT INR APTT pO2 VBG pH VBG pCO2 VBG HCO3 VBG Total CO2 VBG O2 Sat (Calc) VBG Base Excess VBG Potassium Sodium 124 L Chloride 84 L Glucose Lactate FiO2 Potassium 3.2 L Carbon Dioxide 31 Anion Gap 11 BUN 35 H Creatinine 2.6 H Est GFR ( Amer) 34 Est GFR (Non-Af Amer) 28 Random Glucose 107 Calcium 10.1 Total Bilirubin 1.4 H AST 89 H D ALT 59 H Alkaline Phosphatase 111 Lactate Dehydrogenase 3154 H Total Creatine Kinase 1067 H CK-MB (CK-2) 4.9 H CK-MB (CK-2) % Cancelled Troponin I 0.52 H* D Total Protein 8.1 Albumin 4.3 Globulin 3.8 Albumin/Globulin Ratio 1.1 Venous Blood Potassium Urine Color Yellow Urine Appearance Clear Urine pH 7.0 Ur Specific [place] 1.015 Urine Protein >=300 H Urine Glucose (UA) Negative Urine Ketones Trace H Urine Blood Large H Urine Nitrate Negative Urine Bilirubin Negative Urine Urobilinogen 0.2 Ur Leukocyte Esterase Negative Urine RBC 15 - 20 Urine WBC 0 - 2 Ur Epithelial Cells 0 - 2 Urine Bacteria Few - Imaging and Cardiology Chest x-ray Status: Image reviewed by me, Report reviewed by me Assessment & Plan - Assessment and Plan (Free Text) Assessment: 37yo male a/w hypertensive emergency Hypertensive Emergency Elevated Troponin CKD Hyponatremia - currently afebrile, HD stable, SBP 211, on Cardene drip at 5mg/hr - CXR clear, EKG with LVH with early repolarization - elevated troponin can be in setting HTN emergency, will obtain cardiology eval Recommend: - supp o2 as needed - panculture, BCx, UCx, procal - BP control, goal MAP reduction by nore more than 25% in the first 24hr, Cardene drip - Repeat CE - cardiology eval - check UA, Ulytes, Uosm, Cortisol level, TSH - HIV - Utox - GI ppx - DVT ppx - Admit to MICU
[2017-06-23 15:22] LABS: BARBITURATES, UR NEGATIVE (NEGATIVE); BENZODIAZEPINES, UR NEGATIVE (NEGATIVE); OPIATES, UR NEGATIVE (NEGATIVE); PHENCYCLIDINE, UR NEGATIVE (NEGATIVE)
--- NOTE | 2017-06-23 15:22 | CP.PCM.HP ---
<Kati Santos - Last Filed: 06/23/17 16:05> History of Present Illness - History of Present Illness History of Present Illness: CC: I was sent from my doctor's office due to bp of 277/155. 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 Patient went to see his PMD due to lack of sleep and medication refills. Patient states for the past 1 week he has been experiencing cough, at first non- productive, now productive with blood tinged sputum. Patient denies fever, admits to chills. Denies sick contact. Patient also states for 3 weeks, he has been experiencing sob with exertion. along with intermittent chest pain radiating to the back, but currently no cp. Admits to pillow orthopnea, states he uses 3 pillows to sleep, but for the last 3 days it has gotten worst, he wakes up in the middle of the night to catch his breath. Admits to an episode of vomiting today, admits to nausea, and denies abdominal pain, dysuria, or diarrhea. Patient admits to dizziness, lightheadedness, admits to frontal headache radiating to the back, 10. Patient also admits to blurred vision for 3 days. Admits to generalized weakness. Patient states he has been complaint with his medications, watches his diet and avoids added salt. Patient states he only follows up with his pmd, doesnt have outpatient computer numeric control setter or nephrology. Upon reviewing medical record, [place] [facility] [place] with [place]tn emergency, had renal biopsy revealing malignant htn , patient also had cardiac cath revealing non obstructing CAD. In the ED, patients BP was 250/173, afebrile, patient was giving labetalol with no significant change in bp, thus icu was consulted and patient was placed on cardene drip. EKG with ventricular htn, with elevated trop and possible acute infarct, computer numeric control setter was consulted, pending formal recommendations. 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 FMHx: mom and dad had htn. Allergy: NKDA Home meds: hydralazine, metoprolol, Zocor, clonidine. Present on Admission - Present on Admission Any Indicators Present on Admission: No History of DVT/PE: No History of Uncontrolled Diabetes: No Urinary Catheter: No Decubitus Ulcer Present: No Review of Systems - Review of Systems All systems: reviewed and no additional remarkable complaints except Review of Systems: 12 point ROS reviewed, all negative except as per hpi. Past Patient History - Infectious Disease Hx of Infectious Diseases: None - Tetanus Immunizations Tetanus Immunization: Unknown - Past Medical History & Family History Past Medical History?: Yes - Past Social History Smoking Status: Light Smoker < 10 Cigarettes Daily Alcohol: None Drugs: Cannabis Home Situation {Lives}: Alone - CARDIAC Hx Hypertension: Yes - HEENT Hx HEENT Problems: Yes (eyeglasses) - MUSCULOSKELETAL/RHEUMATOLOGICAL Hx Falls: No - GASTROINTESTINAL Hx Ulcer: Yes - PSYCHIATRIC Hx Psychophysiologic Disorder: No Hx Substance Use: No (pt denied) - SURGICAL HISTORY Hx Surgeries: No - ANESTHESIA Hx Anesthesia: No Hx Anesthesia Reactions: No Hx Malignant Hyperthermia: No Meds Allergies/Adverse Reactions: Allergies Allergy/AdvReac Type Severity Reaction Status Date / Time No Known Allergies Allergy Verified 06/23/17 13:24 Physical Exam - Constitutional Appears: No Acute Distress, Older Than Stated Age, Cachectic, Chronically Ill - Head Exam Head Exam: ATRAUMATIC, NORMAL INSPECTION, NORMOCEPHALIC - Eye Exam Eye Exam: EOMI, PERRL. absent: Scleral icterus Pupil Exam: NORMAL ACCOMODATION - ENT Exam ENT Exam: Mucous Membranes Moist, Normal Exam - Neck Exam Neck exam: Positive for: Normal Inspection - Respiratory Exam Respiratory Exam: Rales (at the bases), NORMAL BREATHING PATTERN. absent: Chest Wall Tenderness, Decreased Breath Sounds, Rhonchi, Wheezes, Respiratory Distress, Stridor - Cardiovascular Exam Cardiovascular Exam: Tachycardia, REGULAR RHYTHM, RRR, +S1, +S2. absent: Diastolic murmur, Gallop, Irregular Rhythm, JVD, Systolic Murmur - GI/Abdominal Exam GI & Abdominal Exam: Normal Bowel Sounds, Soft. absent: Distended, Firm, Guarding, Rebound, Rigid, Tenderness - Extremities Exam Extremities exam: Positive for: normal inspection. Negative for: pedal edema, tenderness - Back Exam Back exam: NORMAL INSPECTION, tenderness (upper back and neck ) - Neurological Exam Neurological exam: Alert, Oriented x3, Reflexes Normal - Psychiatric Exam Psychiatric exam: Normal Affect, Normal Mood - Skin Skin Exam: Dry, Intact, Normal Color, Warm Results - Vital Signs Recent Vital Signs: Last Vital Signs Temp 98.6 F 06/23/17 13:25 Pulse 99 H 06/23/17 15:16 Resp 18 06/23/17 15:12 BP 179/126 H 06/23/17 15:12 Pulse Ox 94 L 06/23/17 15:12 - Labs Result Diagrams: 06/23/17 13:30 06/23/17 13:30 Assessment & Plan - Assessment and Plan (Free Text) Assessment: Patient is a 37 y/o with PMHX of pud, hypertensive induced cardiomyopathy ( last EF oif 35-40%), malignant htn ( biopsy proving), CKD, HLD sent from PMD's office due to BP of 277/155. On arrival to the ED, patient's BP was 250/173. Plan: 1) Hypertensive emergency in the setting of malignant hypertension - Patient on cardene drip to titrate to avoid dropping SBP more than 25% in the first 24 hours ( keep it in the 180s in the first 24 hours). - Patient ot be admitted to icu for close monitoring. - Cardiology consulted. 2) Troponin leak- r/o STEMI versus aortic dissection versus troponin leak due to severe LVH versus renal failure -Elevetaed trop x1, along with elevated cpk and ldh. -EKG with Sinus tachycardia, Biatrial enlargement, Left ventricular hypertrophy with repolarization abnormality, ST elevation, consider anterior injury or acute infarct. which has changed compared to ekg from 01/26. - s/p asa in the ed, will continue asa 81 mg daily - will obtain lipid panel and hgba1c. - on simvastatin at home, will start Lipitor. - Patient had cardiac cath last year with non obstructing CAD - Bee Breeder is consulted pending recommendations. - unable to obtain CTA for dissection due to renal function - echo ordered. 3) Hyponatremia likely in the setting of CHF, versus SIADH versus gi losses. - will sent urine lytes, - Patient has crackles on exam, will hold off fluid and monitor for now 4) Hypokalemia- will replete and monitor, will add mag 5) MARIA G on CKD ( due to malignant hypertension)- likely due to hypoperfusion versus intrinsic factors. - will monitor strict i&os - urine lytes ordered - daily weight - nephrology consulted 6) Cough productive with blood tinged sputum - will obtain influenza ab - will add procal - chest c-ray with no infiltrations - s/p Rocephin in the ed, will keep Zithromax for now and adjust prn. 7) Transaminitis - likely due to vascular congestion from heart failure - will trend lrts, - consider abdominal u/s and hep panel if it continue to worsen. 8) CHF exacerbation likely due to uncontrolled BP - pro-bnp [id number] - started on lasix 40 mg ivp daily - cardiology consulted - repeat echo pending - I&o and daily weight. - will resume Lopressor past 24 hours of BP control. 9) Mild Thrombocytopenia - no active sign of bleeding, will monitor for now. 10) Mild rhabdomyolisis- likely due to damage to the cardiac musculature - will hold IVF for now due to possible chf exacerbation and trend cpk. 11) Headache- r/o CVA/TIA - CT head pending 12) Blurred vision likely due to malignant htn - optho consulted 13) DVT prophylaxis: heparin sc, 14) GI prophylaxis: protonix. Patient seen, examined and case discussed with Dr Riky Batista. - Date & Time Date: 06/23/17 Time: 16:25 <Rosenda Batista - Last Filed: 06/24/17 09:43> Results - Vital Signs Recent Vital Signs: Last Vital Signs Temp 98.6 F 06/23/17 21:45 Pulse 101 H 06/24/17 09:26 Resp 20 06/24/17 07:20 BP 204/109 H 06/24/17 09:26 Pulse Ox 98 06/24/17 07:20 - Labs Result Diagrams: 06/24/17 05:50 06/24/17 05:50 Labs: Laboratory Results - last 24 hr 06/23/17 06/23/17 06/24/17 18:06 19:55 01:25 WBC RBC Hgb Hct MCV MCH MCHC RDW Plt Count MPV Gran % Lymph % (Auto) [place] % (Auto) Eos % (Auto) Baso % (Auto) Gran # Lymph # (Auto) [place] # (Auto) Eos # (Auto) Baso # (Auto) Sodium Potassium Chloride Carbon Dioxide Anion Gap BUN Creatinine Est GFR ( Amer) Est GFR (Non-Af Amer) Random Glucose Calcium Phosphorus Magnesium Total Bilirubin AST ALT Alkaline Phosphatase Lactate Dehydrogenase 2445 H 2298 H Total Creatine Kinase 910 H 792 H CK-MB (CK-2) 4.3 H 4.2 H CK-MB (CK-2) % Cancelled Cancelled Troponin I 0.58 H* 0.60 H* Total Protein Albumin Globulin Albumin/Globulin Ratio Triglycerides Cholesterol LDL Cholesterol Direct HDL Cholesterol U Random Total Protein 103 Ur Random Sodium 95 06/24/17 06/24/17 05:50 05:50 WBC 10.9 RBC 4.22 Hgb 13.6 L Hct 38.4 L MCV 91.0 MCH 32.2 MCHC 35.4 RDW 13.9 Plt Count 144 MPV 10.7 Gran % 70.7 H Lymph % (Auto) 21.0 L [place] % (Auto) 7.8 H Eos % (Auto) 0.3 L Baso % (Auto) 0.2 Gran # 7.72 H Lymph # (Auto) 2.3 [place] # (Auto) 0.9 H Eos # (Auto) 0.0 Baso # (Auto) 0.02 Sodium 122 L Potassium 2.5 L* D Chloride 84 L Carbon Dioxide 29 Anion Gap 11 BUN 35 H Creatinine 2.6 H Est GFR ( Amer) 34 Est GFR (Non-Af Amer) 28 Random Glucose 136 H Calcium 9.0 Phosphorus 3.7 Magnesium 1.9 Total Bilirubin 0.6 AST 63 H D ALT 51 Alkaline Phosphatase 84 Lactate Dehydrogenase Total Creatine Kinase CK-MB (CK-2) CK-MB (CK-2) % Troponin I Total Protein 7.1 Albumin 3.8 Globulin 3.4 Albumin/Globulin Ratio 1.1 Triglycerides 94 Cholesterol 217 H LDL Cholesterol Direct 94 HDL Cholesterol 86 H U Random Total Protein Ur Random Sodium Attending/Attestation - Attestation I have personally seen and examined this patient.: Yes I have fully participated in the care of the patient.: Yes I have reviewed all pertinent clinical information: Yes Notes (Text): I have seen and examined the patient at bedside. 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 Upon admission, he was found to have acute on chronic kidney failure, hyponatremia, elevated troponins, back pain, cough productive of yellowish sputum, headache, blurry vision, lightheadedness, JOINER, orthopnea, elevated BNP, rales and CHF exacerbation. As per patient he has been compliant with his medications. Patient was admitted to ICU. He was started on cardene drip. Cardiology was consulted. Patient was started on aspirin and statins. Echo and CT chest, abdomen ordered. Will check peripheral smear to r/o hemolytic anemia for possible atypical HUS. Will order work up for hyponatremia and CKD. Will start lasix. CT head noted. Will consult ophthalmology. Upon discharge patient will follow up with Dr Salazar. Dr Rosenda Batista
--- NOTE | 2017-06-23 15:38 | CT ---
PROCEDURE: CT HEAD WITHOUT CONTRAST. HISTORY: dizziness, elevated bp COMPARISON: 05/09/2016 TECHNIQUE: Axial computed tomography images were obtained through the head/brain without intravenous contrast. Radiation dose: Total exam DLP = 813.36 no mGy-cm. This CT exam was performed using one or more of the following dose reduction techniques: Automated exposure control, adjustment of the mA and/or kV according to patient size, and/or use of iterative reconstruction technique. FINDINGS: HEMORRHAGE: No intracranial hemorrhage. BRAIN: No mass effect or edema. Stable focal encephalomalacia change left temporal lobe. Prominent ramirez white matter differentiation can be seen with demyelinating disease. However, the findings are stable compared to the prior study. VENTRICLES: Unremarkable. No hydrocephalus. CALVARIUM: Unremarkable. PARANASAL SINUSES: Unremarkable as visualized. No significant inflammatory changes. MASTOID AIR CELLS: Unremarkable as visualized. No inflammatory changes. OTHER FINDINGS: None. IMPRESSION: 1. No acute or significant interval changes compared to the prior study. 2. Chronic changes with focal encephalomalacia left temporal lobe. No evidence of acute hemorrhagic process. Demyelinating disease is should be considered.
[2017-06-23 15:56] LABS: TROPONIN I 0.5 ng/mL
[2017-06-23] MEDS ORDERED: Potassium Chloride 20 mEq ER Tab PO STA ×2 (16:07→16:14)
--- NOTE | 2017-06-23 17:22 | CP.PCM.CON ---
History of Present Illness - History of Present Illness History of Present Illness: Nephrology Consultation Note: Assessment: critical Hypertensive Chronic Kidney Disease (I12.9) with uncontrolled severe malignant HTN with emergency Chronic Kidney Disease (N18.3) Stage 3 with 1028 mg proteinuria (R80.9) likely due to HTN and TMA (kidney biopsy apr 2016) Anemia (D64.9), HTN (I12.9) chronic sys CHF (EF 35-40%), moderate pulmonary HTN, smoker abnormal LFT with high LDH, mildly elevated bilirubin and low plat ? microangiopathic hemolysis (also can consider aHUS as possible etiology of his complex presentation) Hyponatremia, Hypokalemia Plan No acute need for renal replacement therapy at this time. Hypertension control with meds as ordered. consider ACEI or ARB once stable. pt on nicardipine drip. resume clonidine, beta-libertad, diuretics as lasix. CHF optimization as per cardiology consider heme eval, check haptoglobin level supplement KDUR Monitor Input/Output, daily weights and renal function with basic metabolic panel Check urine analysis, spot protein/creatinine and albumin/creatinine ratio, renal artery doppler r/o TIFFANIE Check for 25-OH vitamin D, iPTH, phosphorus level Check work up as C3, C4, total complements, Hep B and Hep C serology, lupus serology Dose meds/antibiotics for reduced GFR. Avoid fleets enema/magnesium based laxatives. Avoid nephrotoxins/NSAIDs/ iodinated contrast (unless needed emergently) Glycemic control Further work up/management as per primary team pt to stop smoking Thanks for allowing me to participate in care of your patient. Will follow patient with you. Please call if any Qs. d/w team Dr Shivam James Office: [phone] Chief Complaint; SOB HPI: Pt is a 37 M with hx of hypertension (1-4 years), CKD stage 3 (Cr 2.7 since 2017), uncontrolled severe HTN, kidney biopsy apr 2016: TMA, chronic sys CHF (EF 35-40%), moderate pulmonary HTN, smoker presented with complaints of headache, SOB and inability to sleep x 3 days. also reports cough. Denies OTC/herbal meds or NSAIDs No recent iodinated contrast exposure. reports compliance to meds. denies urine complaints ROS: Cardiovascular: No chest pain. Pulmonary: c/o shortness of breath Gastrointestinal: denies abdominal pain No nausea. No vomiting. Genitourinary: No pain while urinating. Denies blood in urine now, had it in past. reports urine as dark colored though All other negative except as mentioned in HPI Physical Examination: General Appearance: comfortable, in no acute respiratory distress, co-operative . Vitals reviewed and noted as below Head; Atraumatic, normocephalic ENT: no ulcers no thrush. Tongue is midline. Oropharynx: no rash or ulcers. EYES: Pupils are equal, round and reactive to light accommodation. Eye muscles and extraocular movement intact. Sclera is anicteric. Neck; supple no lymphadenopathy, no thyromegaly or bruit Lungs: Increased respiratory rate/effort. Breath sounds bilateral equal and has basal crackles Heart: Normal rate. s1s2 normal. No rub or gallop. Extremities: no edema. No varicose veins Neurological: Patient is alert, awake and oriented to person, place and time. No focal deficit. Strength bilateral appropriate and equal Skin: Warm and dry. Normal turgor. No rash. Palpitation: Normal elasticity for age Abdomen: Abdomen is soft. Bowel sounds +. There is no abdominal tenderness, no guarding/rigidity no organomegaly Psych: normal insight and normal affect/mood MSK: no joint tenderness or swelling. Digits and nails normal, no deformity : kidney or bladder not palpable Labs/imaging reviewed. Past medical history, past surgical history, family history, social history, allergy reviewed and noted as below Family hx: no hx of CKD. Rest non-contributory. parents with HTN workup : apr 2016: kidney biopsy: TMA renin aldosterone 8 metanephrin WNL imaging: normal adrenals, no hydronephrosis LVEF 35-40% moderate pHTN UA: 3+ protein large blood HIV/YESENIA/ANCA neg Past Patient History - Infectious Disease Hx of Infectious Diseases: None - Tetanus Immunizations Tetanus Immunization: Unknown - Past Medical History & Family History Past Medical History?: Yes - Past Social History Smoking Status: Light Smoker < 10 Cigarettes Daily Alcohol: None Drugs: Cannabis Home Situation {Lives}: Alone - CARDIAC Hx Hypertension: Yes - HEENT Hx HEENT Problems: Yes (eyeglasses) - MUSCULOSKELETAL/RHEUMATOLOGICAL Hx Falls: No - GASTROINTESTINAL Hx Ulcer: Yes - PSYCHIATRIC Hx Psychophysiologic Disorder: No Hx Substance Use: No (pt denied) - SURGICAL HISTORY Hx Surgeries: No - ANESTHESIA Hx Anesthesia: No Hx Anesthesia Reactions: No Hx Malignant Hyperthermia: No Meds Allergies/Adverse Reactions: Allergies Allergy/AdvReac Type Severity Reaction Status Date / Time No Known Allergies Allergy Verified 06/23/17 13:24 - Medications Medications: Current Medications Aspirin (Aspirin Chewable) [address] [facility] Atorvastatin Calcium (Lipitor) [address] [facility] Last Admin: 06/23/17 17:03 Dose: 40 mg Furosemide (Lasix) [address] [facility] Last Admin: 06/23/17 17:02 Dose: 40 mg Heparin Sodium (Porcine) (Heparin) 5,[address] [facility] PRN Reason: Protocol Nicardipine HCl (Cardene Iv Premix) 20 mg in 200 mls @ 50 mls/hr IV .Q4H PRN; Protocol; 5 MG/HR PRN Reason: TITRATE PER MD ORDER Last Admin: 06/23/17 14:29 Dose: 50 mls/hr Pantoprazole Sodium (Protonix Ec Tab) [address] [facility] Results - Vital Signs Recent Vital Signs: Last Vital Signs Temp 98.6 F 06/23/17 13:25 Pulse 99 H 06/23/17 15:16 Resp 18 06/23/17 15:12 BP 181/118 H 06/23/17 17:02 Pulse Ox 94 L 06/23/17 15:12 - Labs Result Diagrams: 06/23/17 13:30 06/23/17 13:30
[2017-06-23 18:55] LABS: TOTAL PROTEIN,RANDOM URINE 103 mg/L
--- NOTE | 2017-06-23 20:12 | CT ---
EXAM: CT Chest Without Intravenous Contrast CT Abdomen and Pelvis Without Intravenous Contrast EXAM DATE/TIME: 06/23/2017 4:45 PM CLINICAL HISTORY: 37 years old, male; Signs and symptoms; Other: Hypertensive emergency; Other: Malignant hypertension/aneurysm TECHNIQUE: Axial computed tomography images of the chest, abdomen and pelvis without intravenous contrast. All CT scans at this facility use one or more dose reduction techniques, viz.: automated exposure control; ma/kV adjustment per patient size (including targeted exams where dose is matched to indication; i.e. head); or iterative reconstruction technique. All CT scans at this facility use one or more dose reduction techniques, viz.: automated exposure control; ma/kV adjustment per patient size (including targeted exams where dose is matched to indication; i.e. head); or iterative reconstruction technique. Coronal and sagittal reformatted images were created and reviewed. COMPARISON: Prior CT abdomen and pelvis of 01/24/2017. FINDINGS: CHEST: LUNGS: Abnormal, mosaic appearance of the lower lungs bilaterally, a new finding since the prior CT abdomen, highly suspicious for subtle, multifocal bilateral groundglass pulmonary consolidation. This appears symmetric, and has a lower lobe predominance. Minimal patchy densities in the posterior lower lobes bilaterally, most likely representing dependent atelectasis. Patent large airways. PLEURAL SPACE: Very small bilateral pleural effusions. No pneumothorax is seen. HEART: Heart appears moderately enlarged. No evidence of significant pericardial effusion. MEDIASTINUM: No evidence of pneumomediastinum. ABDOMEN: LIVER: No acute abnormality of the liver identified. GALLBLADDER AND BILE DUCTS: No CT evidence of acute cholecystitis. No evidence of significant biliary ductal dilatation. PANCREAS: No CT evidence of acute pancreatitis. SPLEEN: No acute abnormality of the spleen identified. ADRENALS: No acute abnormality of the adrenal glands. KIDNEYS AND URETERS: Tiny, nonobstructing right renal stone. No evidence of hydroureteronephrosis. STOMACH AND BOWEL: Bowel is overall suboptimally evaluated, secondary to a generalized absence of intra-abdominal and intrapelvic fat and unenhanced technique. Allowing for this, there is no evidence of a significant bowel obstruction or other definite acute abnormality of the bowel. A APPENDIX: Appendix is seen, and is within normal limits in appearance. PELVIS: BLADDER: No acute abnormality of the bladder identified. REPRODUCTIVE: No acute abnormality of the reproductive organs is seen. CHEST, ABDOMEN and PELVIS: INTRAPERITONEAL SPACE: No evidence of free intraperitoneal air or fluid. RETROPERITONEAL SPACE: No evidence of retroperitoneal hemorrhage. BONES/JOINTS: No acute fractures or other acute bony abnormality noted. SOFT TISSUES: No acute abnormality of the visualized soft tissues is seen. VASCULATURE: Exam is nondiagnostic for aortic dissection, secondary to unenhanced technique. No evidence of aneurysmal dilatation of the thoracic or abdominal aorta. No evidence of periaortic hemorrhage. LYMPH NODES: No evidence of diffuse lymphadenopathy. IMPRESSION: - Subtle, diffuse groundglass pulmonary consolidation, with a lower lobe predominance. In an acute setting, this is most likely secondary to alveolar pulmonary edema versus pneumonia. Pulmonary hemorrhage could also have this appearance. - Small bilateral pleural effusions. - Cardiomegaly. - Otherwise, no evidence of significant acute process on this unenhanced exam. - See above for remaining findings.
[2017-06-23 20:35] LABS: CK-MB 4.3 ng/mL (0.0-3.6)
[2017-06-23 21:56] LABS: TROPONIN I 0.58 ng/mL
[2017-06-23 21:59] VITALS: BMI 22.7
[2017-06-23] MEDS ORDERED: Pneumococcal 23-Valent Vaccine IM ONE (21:59)
[2017-06-23] MEDS ORDERED: Influenza Vaccine 60 mcg/0.5 mL SYR (4YR UP) IM ONE (21:59)
[2017-06-23] MEDS ORDERED: DiphenhydrAMINE 50 mg/ml Inj IVP ONE (22:45)
[2017-06-24] MEDS: Nicardipine 20 MG/200 ML 20 MG/200 ML BAG IV PRN ×3 (01:27→05:39)
[2017-06-24 02:28] LABS: CK-MB 4.2 ng/mL (0.0-3.6); TROPONIN I 0.6 ng/mL
[2017-06-24] MEDS: Pantoprazole 40 mg EC Tab PO SCH (05:28)
[2017-06-24 07:16] LABS: BASO # 0.02 K/mm3 (0.0-2.0); BASO % 0.2 % (0.0-3.0); EOS % 0.3 % (1.5-5.0); GRAN # 7.72 (1.4-6.5); GRAN % 70.7 % (50.0-68.0); HEMOGLOBIN 13.6 g/dL (14.0-18.0); LYMPH # 2.3 (1.2-3.4); MEAN CORPUSCULAR HEMOGLOBIN 32.2 pg (25.0-35.0); MEAN CORPUSCULAR HGB CONC 35.4 g/dl (31.0-37.0); MEAN PLATELET VOLUME 10.7 fl (7.0-11.0); MONO # 0.9 (0.1-0.6); MONO % 7.8 % (1.0-6.0); RBC 4.22 10^6/uL (3.5-6.1); RED CELL DISTRIBUTION WIDTH 13.9 % (11.5-14.5); WHITE BLOOD COUNT 10.9 10^3/ul (4.5-11.0)
[2017-06-24] MEDS ORDERED: Potassium Chloride 20 mEq ER Tab PO STA (07:38)
[2017-06-24 07:40] LABS: ALB/GLOB RATIO 1.1 (1.1-1.8); ALBUMIN 3.8 g/dL (3.0-4.8); ALT/SGPT 51 U/L (7-56); AST/SGOT 63 U/L (17-59); BLOOD UREA NITROGEN 35 mg/dL (7-21); GFR AFRICAN-AMERICAN 34; GFR NON-AFRICAN AMERICAN 28; HDL CHOLESTEROL 86 mg/dL (29-60); LDL CHOLESTEROL 94 mg/dL (0-129)
--- NOTE | 2017-06-24 10:46 | CP.CCUPN ---
<Ronnie Hampton - Last Filed: 06/24/17 10:46> CCU Subjective - Physician Review Subjective (Free Text): Patient seen and evaluated bedside. No acute issues overnight. Patient says he is tired and wants to sleep. Patient denies chest pain, shortness of breath, dizziness, headaches or any other complaints at this time. 06/24/17 10:43 Critical Care Time Spent (in minutes): 35 CCU Objective - Vital Signs / Intake & Output Vital Signs (Last 4 hours): Vital Signs Pulse Resp BP Pulse Ox 06/24/17 09:26 101 H 204/109 H 06/24/17 09:25 105 H 204/109 H 06/24/17 07:20 107 H 20 98 06/24/17 07:10 100 H 23 99 06/24/17 07:00 102 H 24 181/106 H 95 06/24/17 06:50 103 H 22 99 Intake and Output (Last 8hrs): Intake & Output 06/23/17 06/24/17 06/24/17 22:59 06:59 14:59 Intake Total 602 600 0 Output Total 1050 Balance -448 600 0 Weight 145 lb Intake: IV 362 600 0 Left Antecubital 325 Oral 240 Output: Urine 1050 Urine, Voided 1050 Other: Voiding Method Urinal # Bowel Movements 0 - Physical Exam Head: Positive for: Atraumatic, Normocephalic, Other (mild bi-temporal wasting) Pupils: Positive for: PERRL, Other (wearing eyeglasses, no nystagmus, no photophobia, sclera anicteri) Extroacular Muscles: Positive for: EOMI Conjunctiva: Positive for: Normal Ears: Positive for: Normal Mouth: Positive for: Normal Teeth, Other (mild dry oral mucosa, no drooling/ stridor, no exudate/lesions, uvula/tongue are midline) Pharnyx: Positive for: Normal Nose (External): Positive for: Atraumatic Nose (Internal): Positive for: Normal Inspection Neck: Positive for: Normal Range of Motion. Negative for: MIDLINE TENDERNESS Respiratory/Chest: Positive for: Good Air Exchange Cardiovascular: Positive for: Regular Rate and Rhythm, Normal S1, S2. Negative for: Murmurs Abdomen: Positive for: Normal Bowel Sounds, Other (thin male, no focal tenderness, no dubose's sign, no mcburney's point tenderness, no masses/rebound/ guarding/rigidity) Back: Positive for: Normal Inspection, Other (no step off, intact ROM, no midline tenderness). Negative for: CVA Tenderness, Midline Tenderness Upper Extremity: Positive for: Normal Inspection, Normal ROM, NORMAL PULSES, Neurovascularly Intact, Capillary Refill < 2s Lower Extremity: Positive for: Normal Inspection, NORMAL PULSES, Normal ROM, Neurovascularly Intact, Capillary Refill < 2 s Neurological: Positive for: GCS=15, CN II-XII Intact, Speech Normal Skin: Positive for: Warm, Normal Color, Other (cap refill ~ 1 sec, no ulcerations, no petechiae, mild pallor) Psychiatric: Positive for: Alert, Oriented x 3 - Medications Active Medications: Active Medications Generic Name Dose Route Start Last Admin Trade Name Freq PRN Reason Stop Dose Admin Aspirin 81 mg 06/24/17 10:00 06/24/17 09:27 Aspirin Chewable PO 81 mg DAILY TATIANNA Administration Atorvastatin Calcium 40 mg 06/23/17 17:00 06/23/17 17:03 Lipitor PO 40 mg DIN TATIANNA Administration Clonidine HCl 0.2 mg 06/24/17 10:00 06/24/17 09:25 Catapres PO 0.2 mg TID TATIANNA Administration Furosemide 40 mg 06/23/17 16:15 06/23/17 17:02 Lasix IVP 40 mg DAILY TATIANNA Administration Heparin Sodium (Porcine) 5,000 units 06/23/17 22:00 06/24/17 09:27 Heparin SC 5,000 units Q12 TATIANNA Administration Protocol Hydralazine HCl 50 mg 06/24/17 10:00 06/24/17 09:26 Apresoline PO 50 mg TID TATIANNA Administration Potassium Chloride 10 meq in 100 mls @ 50 mls/hr 06/24/17 07:45 Potassium Chloride 10 Meq/100 Ml IVPB 06/24/17 11:44 Q2H TATIANNA Pantoprazole Sodium 40 mg 06/24/17 06:00 06/24/17 05:28 Protonix Ec Tab PO 40 mg 0600 TATIANNA Administration - Patient Studies Lab Studies: Lab Studies 06/24/17 06/24/17 06/24/17 Range/Units 05:50 05:50 01:25 WBC 10.9 (4.5-11.0) 10^3/ul RBC 4.22 (3.5-6.1) 10^6/uL Hgb 13.6 L (14.0-18.0) g/dL Hct 38.4 L (42.0-52.0) % MCV 91.0 (80.0-105.0) fl MCH 32.2 (25.0-35.0) pg MCHC 35.4 (31.0-37.0) g/dl RDW 13.9 (11.5-14.5) % Plt Count 144 (120.0-450.0) 10^3/uL MPV 10.7 (7.0-11.0) fl Gran % 70.7 H (50.0-68.0) % Lymph % (Auto) 21.0 L (22.0-35.0) % [place] % (Auto) 7.8 H (1.0-6.0) % Eos % (Auto) 0.3 L (1.5-5.0) % Baso % (Auto) 0.2 (0.0-3.0) % Gran # 7.72 H (1.4-6.5) Lymph # (Auto) 2.3 (1.2-3.4) [place] # (Auto) 0.9 H (0.1-0.6) Eos # (Auto) 0.0 (0.0-0.7) Baso # (Auto) 0.02 (0.0-2.0) K/mm3 Sodium 122 L (132-148) mmol/L Potassium 2.5 L* D (3.6-5.0) mmol/L Chloride 84 L (98-107) mmol/L Carbon Dioxide 29 (21-33) mmol/L Anion Gap 11 (10-20) BUN 35 H (7-21) mg/dL Creatinine 2.6 H (0.8-1.5) mg/dl Est GFR ( Amer) 34 Est GFR (Non-Af Amer) 28 Random Glucose 136 H (70-110) mg/dL Calcium 9.0 (8.4-10.5) mg/dL Phosphorus 3.7 (2.5-4.5) mg/dL Magnesium 1.9 (1.7-2.2) mg/dL Total Bilirubin 0.6 (0.2-1.3) mg/dL AST 63 H D (17-59) U/L ALT 51 (7-56) U/L Alkaline Phosphatase 84 (38-126) U/L Lactate Dehydrogenase 2298 H (333-699) U/L Total Creatine Kinase 792 H (35-230) U/L CK-MB (CK-2) 4.2 H (0.0-3.6) ng/mL CK-MB (CK-2) % Cancelled Troponin I 0.60 H* ng/mL Total Protein 7.1 (5.8-8.3) g/dL Albumin 3.8 (3.0-4.8) g/dL Globulin 3.4 gm/dL Albumin/Globulin Ratio 1.1 (1.1-1.8) Triglycerides 94 (35-160) mg/dL Cholesterol 217 H (130-200) mg/dL LDL Cholesterol Direct 94 (0-129) mg/dL HDL Cholesterol 86 H (29-60) mg/dL U Random Total Protein mg/L Ur Random Sodium meq/L 06/23/17 06/23/17 Range/Units 19:55 18:06 WBC (4.5-11.0) 10^3/ul RBC (3.5-6.1) 10^6/uL Hgb (14.0-18.0) g/dL Hct (42.0-52.0) % MCV (80.0-105.0) fl MCH (25.0-35.0) pg MCHC (31.0-37.0) g/dl RDW (11.5-14.5) % Plt Count (120.0-450.0) 10^3/uL MPV (7.0-11.0) fl Gran % (50.0-68.0) % Lymph % (Auto) (22.0-35.0) % [place] % (Auto) (1.0-6.0) % Eos % (Auto) (1.5-5.0) % Baso % (Auto) (0.0-3.0) % Gran # (1.4-6.5) Lymph # (Auto) (1.2-3.4) [place] # (Auto) (0.1-0.6) Eos # (Auto) (0.0-0.7) Baso # (Auto) (0.0-2.0) K/mm3 Sodium (132-148) mmol/L Potassium (3.6-5.0) mmol/L Chloride (98-107) mmol/L Carbon Dioxide (21-33) mmol/L Anion Gap (10-20) BUN (7-21) mg/dL Creatinine (0.8-1.5) mg/dl Est GFR ( Amer) Est GFR (Non-Af Amer) Random Glucose (70-110) mg/dL Calcium (8.4-10.5) mg/dL Phosphorus (2.5-4.5) mg/dL Magnesium (1.7-2.2) mg/dL Total Bilirubin (0.2-1.3) mg/dL AST (17-59) U/L ALT (7-56) U/L Alkaline Phosphatase (38-126) U/L Lactate Dehydrogenase 2445 H (333-699) U/L Total Creatine Kinase 910 H (35-230) U/L CK-MB (CK-2) 4.3 H (0.0-3.6) ng/mL CK-MB (CK-2) % Cancelled Troponin I 0.58 H* ng/mL Total Protein (5.8-8.3) g/dL Albumin (3.0-4.8) g/dL Globulin gm/dL Albumin/Globulin Ratio (1.1-1.8) Triglycerides (35-160) mg/dL Cholesterol (130-200) mg/dL LDL Cholesterol Direct (0-129) mg/dL HDL Cholesterol (29-60) mg/dL U Random Total Protein 103 mg/L Ur Random Sodium 95 meq/L Laboratory Results - last 24 hr 06/23/17 06/23/17 06/24/17 18:06 19:55 01:25 WBC RBC Hgb Hct MCV MCH MCHC RDW Plt Count MPV Gran % Lymph % (Auto) [place] % (Auto) Eos % (Auto) Baso % (Auto) Gran # Lymph # (Auto) [place] # (Auto) Eos # (Auto) Baso # (Auto) Sodium Potassium Chloride Carbon Dioxide Anion Gap BUN Creatinine Est GFR ( Amer) Est GFR (Non-Af Amer) Random Glucose Calcium Phosphorus Magnesium Total Bilirubin AST ALT Alkaline Phosphatase Lactate Dehydrogenase 2445 H 2298 H Total Creatine Kinase 910 H 792 H CK-MB (CK-2) 4.3 H 4.2 H CK-MB (CK-2) % Cancelled Cancelled Troponin I 0.58 H* 0.60 H* Total Protein Albumin Globulin Albumin/Globulin Ratio Triglycerides Cholesterol LDL Cholesterol Direct HDL Cholesterol U Random Total Protein 103 Ur Random Sodium 95 06/24/17 06/24/17 05:50 05:50 WBC 10.9 RBC 4.22 Hgb 13.6 L Hct 38.4 L MCV 91.0 MCH 32.2 MCHC 35.4 RDW 13.9 Plt Count 144 MPV 10.7 Gran % 70.7 H Lymph % (Auto) 21.0 L [place] % (Auto) 7.8 H Eos % (Auto) 0.3 L Baso % (Auto) 0.2 Gran # 7.72 H Lymph # (Auto) 2.3 [place] # (Auto) 0.9 H Eos # (Auto) 0.0 Baso # (Auto) 0.02 Sodium 122 L Potassium 2.5 L* D Chloride 84 L Carbon Dioxide 29 Anion Gap 11 BUN 35 H Creatinine 2.6 H Est GFR ( Amer) 34 Est GFR (Non-Af Amer) 28 Random Glucose 136 H Calcium 9.0 Phosphorus 3.7 Magnesium 1.9 Total Bilirubin 0.6 AST 63 H D ALT 51 Alkaline Phosphatase 84 Lactate Dehydrogenase Total Creatine Kinase CK-MB (CK-2) CK-MB (CK-2) % Troponin I Total Protein 7.1 Albumin 3.8 Globulin 3.4 Albumin/Globulin Ratio 1.1 Triglycerides 94 Cholesterol 217 H LDL Cholesterol Direct 94 HDL Cholesterol 86 H U Random Total Protein Ur Random Sodium Review of Systems - Constitutional Constitutional: absent: Chills, Sweats - EENT Nose/Mouth/Throat: absent: Nasal Congestion - Cardiovascular Cardiovascular: absent: Chest Pain, Chest Pain at Rest, Diaphoresis, Rapid Heart Rate - Respiratory Respiratory: absent: Cough, Dyspnea - Gastrointestinal Gastrointestinal: absent: Abdominal Pain, Nausea, Vomiting Critical Care Progress Note - Nutrition Nutrition: Nutrition Category Date Time Status Heart Healthy Diet [DIET] Diets 06/23/17 Dinner Ordered Assessment/Plan - Assessment and Plan (Free Text) Assessment: Patient is a 37 y/o with PMHX of pud, hypertensive induced cardiomyopathy ( last EF oif 35-40%), malignant htn ( biopsy proving), CKD, HLD presenting with Hypertensive urgency. Plan: Neuro -AAOx3 -continue to monitor Pulm -maintain sat >92% CV -continue home BP meds -continue to monitor BP -last trops .60 -Cardio consultedDomenica, follow recs Heme -stable -continue to monitor GI -HHD Nephro: -monitor kidney function -Maintain euvolemia -Nephro, consulted Jacob, follow recs -hypokalemia -K repleted -replete electrolytes as needed -renal US pending -currently holding lasix Endo: -Maintain euglycemia Prophylaxis -heparin -protonix <Andrea Huynh - Last Filed: 06/24/17 12:45> CCU Objective - Vital Signs / Intake & Output Vital Signs (Last 4 hours): Vital Signs Pulse BP 06/24/17 09:26 101 H 204/109 H 06/24/17 09:25 105 H 204/109 H Intake and Output (Last 8hrs): Intake & Output 06/23/17 06/24/17 06/24/17 22:59 06:59 14:59 Intake Total 602 600 0 Output Total 1050 Balance -448 600 0 Weight 145 lb Intake: IV 362 600 0 Left Antecubital 325 Oral 240 Output: Urine 1050 Urine, Voided 1050 Other: Voiding Method Urinal # Bowel Movements 0 - Medications Active Medications: Active Medications Generic Name Dose Route Start Last Admin Trade Name Freq PRN Reason Stop Dose Admin Aspirin 81 mg 06/24/17 10:00 06/24/17 09:27 Aspirin Chewable PO 81 mg DAILY TATIANNA Administration Atorvastatin Calcium 40 mg 06/23/17 17:00 06/23/17 17:03 Lipitor PO 40 mg DIN TATIANNA Administration Carvedilol 6.25 mg 06/24/17 11:45 Coreg PO BID TATIANNA Clonidine HCl 0.2 mg 06/24/17 10:00 06/24/17 09:25 Catapres PO 0.2 mg TID TATIANNA Administration Furosemide 40 mg 06/23/17 16:15 06/23/17 17:02 Lasix IVP 40 mg DAILY TATIANNA Administration Heparin Sodium (Porcine) 5,000 units 06/23/17 22:00 06/24/17 09:27 Heparin SC 5,000 units Q12 TATIANNA Administration Protocol Hydralazine HCl 50 mg 06/24/17 10:00 06/24/17 09:26 Apresoline PO 50 mg TID TATIANNA Administration Losartan Potassium 50 mg 06/24/17 11:45 Cozaar PO DAILY TATIANNA Pantoprazole Sodium 40 mg 06/24/17 06:00 06/24/17 05:28 Protonix Ec Tab PO 40 mg 0600 TATIANNA Administration - Patient Studies Lab Studies: Lab Studies 06/24/17 06/24/17 06/24/17 Range/Units 05:50 05:50 01:25 WBC 10.9 (4.5-11.0) 10^3/ul RBC 4.22 (3.5-6.1) 10^6/uL Hgb 13.6 L (14.0-18.0) g/dL Hct 38.4 L (42.0-52.0) % MCV 91.0 (80.0-105.0) fl MCH 32.2 (25.0-35.0) pg MCHC 35.4 (31.0-37.0) g/dl RDW 13.9 (11.5-14.5) % Plt Count 144 (120.0-450.0) 10^3/uL MPV 10.7 (7.0-11.0) fl Gran % 70.7 H (50.0-68.0) % Lymph % (Auto) 21.0 L (22.0-35.0) % [place] % (Auto) 7.8 H (1.0-6.0) % Eos % (Auto) 0.3 L (1.5-5.0) % Baso % (Auto) 0.2 (0.0-3.0) % Gran # 7.72 H (1.4-6.5) Lymph # (Auto) 2.3 (1.2-3.4) [place] # (Auto) 0.9 H (0.1-0.6) Eos # (Auto) 0.0 (0.0-0.7) Baso # (Auto) 0.02 (0.0-2.0) K/mm3 Sodium 122 L (132-148) mmol/L Potassium 2.5 L* D (3.6-5.0) mmol/L Chloride 84 L (98-107) mmol/L Carbon Dioxide 29 (21-33) mmol/L Anion Gap 11 (10-20) BUN 35 H (7-21) mg/dL Creatinine 2.6 H (0.8-1.5) mg/dl Est GFR ( Amer) 34 Est GFR (Non-Af Amer) 28 Random Glucose 136 H (70-110) mg/dL Calcium 9.0 (8.4-10.5) mg/dL Phosphorus 3.7 (2.5-4.5) mg/dL Magnesium 1.9 (1.7-2.2) mg/dL Total Bilirubin 0.6 (0.2-1.3) mg/dL AST 63 H D (17-59) U/L ALT 51 (7-56) U/L Alkaline Phosphatase 84 (38-126) U/L Lactate Dehydrogenase 2298 H (333-699) U/L Total Creatine Kinase 792 H (35-230) U/L CK-MB (CK-2) 4.2 H (0.0-3.6) ng/mL CK-MB (CK-2) % Cancelled Troponin I 0.60 H* ng/mL Total Protein 7.1 (5.8-8.3) g/dL Albumin 3.8 (3.0-4.8) g/dL Globulin 3.4 gm/dL Albumin/Globulin Ratio 1.1 (1.1-1.8) Triglycerides 94 (35-160) mg/dL Cholesterol 217 H (130-200) mg/dL LDL Cholesterol Direct 94 (0-129) mg/dL HDL Cholesterol 86 H (29-60) mg/dL Urine Osmolality (300-1000) mosm/kg U Random Total Protein mg/L Ur Random Sodium meq/L 06/23/17 06/23/17 06/23/17 Range/Units 19:55 18:06 18:06 WBC (4.5-11.0) 10^3/ul RBC (3.5-6.1) 10^6/uL Hgb (14.0-18.0) g/dL Hct (42.0-52.0) % MCV (80.0-105.0) fl MCH (25.0-35.0) pg MCHC (31.0-37.0) g/dl RDW (11.5-14.5) % Plt Count (120.0-450.0) 10^3/uL MPV (7.0-11.0) fl Gran % (50.0-68.0) % Lymph % (Auto) (22.0-35.0) % [place] % (Auto) (1.0-6.0) % Eos % (Auto) (1.5-5.0) % Baso % (Auto) (0.0-3.0) % Gran # (1.4-6.5) Lymph # (Auto) (1.2-3.4) [place] # (Auto) (0.1-0.6) Eos # (Auto) (0.0-0.7) Baso # (Auto) (0.0-2.0) K/mm3 Sodium (132-148) mmol/L Potassium (3.6-5.0) mmol/L Chloride (98-107) mmol/L Carbon Dioxide (21-33) mmol/L Anion Gap (10-20) BUN (7-21) mg/dL Creatinine (0.8-1.5) mg/dl Est GFR ( Amer) Est GFR (Non-Af Amer) Random Glucose (70-110) mg/dL Calcium (8.4-10.5) mg/dL Phosphorus (2.5-4.5) mg/dL Magnesium (1.7-2.2) mg/dL Total Bilirubin (0.2-1.3) mg/dL AST (17-59) U/L ALT (7-56) U/L Alkaline Phosphatase (38-126) U/L Lactate Dehydrogenase 2445 H (333-699) U/L Total Creatine Kinase 910 H (35-230) U/L CK-MB (CK-2) 4.3 H (0.0-3.6) ng/mL CK-MB (CK-2) % Cancelled Troponin I 0.58 H* ng/mL Total Protein (5.8-8.3) g/dL Albumin (3.0-4.8) g/dL Globulin gm/dL Albumin/Globulin Ratio (1.1-1.8) Triglycerides (35-160) mg/dL Cholesterol (130-200) mg/dL LDL Cholesterol Direct (0-129) mg/dL HDL Cholesterol (29-60) mg/dL Urine Osmolality 237 L (300-1000) mosm/kg U Random Total Protein 103 mg/L Ur Random Sodium 95 meq/L Laboratory Results - last 24 hr 06/23/17 06/23/17 06/23/17 18:06 18:06 19:55 WBC RBC Hgb Hct MCV MCH MCHC RDW Plt Count MPV Gran % Lymph % (Auto) [place] % (Auto) Eos % (Auto) Baso % (Auto) Gran # Lymph # (Auto) [place] # (Auto) Eos # (Auto) Baso # (Auto) Sodium Potassium Chloride Carbon Dioxide Anion Gap BUN Creatinine Est GFR ( Amer) Est GFR (Non-Af Amer) Random Glucose Calcium Phosphorus Magnesium Total Bilirubin AST ALT Alkaline Phosphatase Lactate Dehydrogenase 2445 H Total Creatine Kinase 910 H CK-MB (CK-2) 4.3 H CK-MB (CK-2) % Cancelled Troponin I 0.58 H* Total Protein Albumin Globulin Albumin/Globulin Ratio Triglycerides Cholesterol LDL Cholesterol Direct HDL Cholesterol Urine Osmolality 237 L U Random Total Protein 103 Ur Random Sodium 95 06/24/17 06/24/17 06/24/17 01:25 05:50 05:50 WBC 10.9 RBC 4.22 Hgb 13.6 L Hct 38.4 L MCV 91.0 MCH 32.2 MCHC 35.4 RDW 13.9 Plt Count 144 MPV 10.7 Gran % 70.7 H Lymph % (Auto) 21.0 L [place] % (Auto) 7.8 H Eos % (Auto) 0.3 L Baso % (Auto) 0.2 Gran # 7.72 H Lymph # (Auto) 2.3 [place] # (Auto) 0.9 H Eos # (Auto) 0.0 Baso # (Auto) 0.02 Sodium 122 L Potassium 2.5 L* D Chloride 84 L Carbon Dioxide 29 Anion Gap 11 BUN 35 H Creatinine 2.6 H Est GFR ( Amer) 34 Est GFR (Non-Af Amer) 28 Random Glucose 136 H Calcium 9.0 Phosphorus 3.7 Magnesium 1.9 Total Bilirubin 0.6 AST 63 H D ALT 51 Alkaline Phosphatase 84 Lactate Dehydrogenase 2298 H Total Creatine Kinase 792 H CK-MB (CK-2) 4.2 H CK-MB (CK-2) % Cancelled Troponin I 0.60 H* Total Protein 7.1 Albumin 3.8 Globulin 3.4 Albumin/Globulin Ratio 1.1 Triglycerides 94 Cholesterol 217 H LDL Cholesterol Direct 94 HDL Cholesterol 86 H Urine Osmolality U Random Total Protein Ur Random Sodium Critical Care Progress Note - Nutrition Nutrition: Nutrition Category Date Time Status Heart Healthy Diet [DIET] Diets 06/23/17 Dinner Ordered Assessment/Plan - Assessment and Plan (Free Text) Plan: Patient seen and examined, on rounds with resident, agree with note with following additions/exceptions: Patient is 37yo male with PMHx of CKD, difficult to control HTN, a/w HTN emergency. Currently afebrile, HD stable, SBP ranging 160-180, off cardene drip, on PO BP meds. Denies CP, SOB, palpitations, DALAL, dizziness. Tolerating PO diet. Cardiology following Hypertensive Emergency Elevated Troponin CKD Hyponatremia CHF, chronic systolic Recommend: - supp o2 as needed - panculture, BCx, UCx, procal - BP control, goal MAP reduction by no more than 25% in the first 24hr, resume home meds - Clonidine 0.2mg TID, Lopressor, Norvasc - cardiology follow up - check TSH - check HIV - GI ppx - DVT ppx - Stable
--- NOTE | 2017-06-24 11:05 | CARD ---
APPROVED REPORT EKG Measurement Heart [id number] <Conclusion> Sinus tachycardia Biatrial enlargement Left ventricular hypertrophy with repolarization abnormality ST elevation, consider anterior injury or acute infarct ACUTE DE
--- NOTE | 2017-06-24 12:37 | US ---
PROCEDURE: Bilateral renal artery duplex ultrasound. CLINICAL HISTORY: Renal artery stenosis. Uncontrolled hypertension. Evaluate for renovascular hypertension. PHYSICIAN(S): Earl Reynoso M.D. TECHNIQUE: Duplex sonography with color-flow Doppler was used to evaluate the visualized segments of the main renal arteries. The patient was evaluated in a fasting state. Imaging in a supine and decubitus position was performed. Limited evaluation of the arcuate waveforms and resistive indices were performed. FINDINGS: The overall quality of the study is adequate. The renal parenchyma is normal in thickness but very echogenic. The right kidney measures 9.0cm in length and the left kidney measures 8.7cm in length. No solid renal masses, abnormal calcifications, or hydronephrosis is seen. The main right renal artery is well visualized from the aorta to the hilum. The peak systolic velocity in the right main renal artery is 96 cm/sec. This is consistent with a 0 to 49% stenosis in the main right renal artery. The arcuate waveforms are normal. The resistive index is normal. The main left renal artery is also well seen from its origin to the renal hilum. The peak systolic velocity in the main left renal artery is 74cm/sec. This corresponds to a 0 to 49% stenosis in the main left renal artery. The arcuate waveforms and resistive indices are normal. IMPRESSION: 1. The main renal arteries are well visualized. 2. No sonographically significant stenosis is identified. 3. The renal parenchyma is normal in thickness but very echogenic. No evidence of renal mass or hydronephrosis
[2017-06-24 12:57] LABS: COMPLEMENT C4 56.4 mg/dL (14.0-44.0)
[2017-06-24 13:20] LABS: HEPATITIS B SURFACE AG Negative (NEGATIVE)
[2017-06-24 13:24] LABS: HEPATITIS B CORE AB NEGATIVE (NEGATIVE)
[2017-06-24 13:36] LABS: HEPATITIS C ANTIBODY NEGATIVE (NEGATIVE)
--- NOTE | 2017-06-24 13:57 | CP.PCM.PN ---
Subjective - Date & Time of Evaluation Date of Evaluation: 06/24/17 Time of Evaluation: 13:54 - Subjective Subjective: Nephrology Consultation Note: Assessment: critical Hypertensive Chronic Kidney Disease (I12.9) with uncontrolled severe malignant HTN with emergency Chronic Kidney Disease (N18.3) Stage 3 with 1028 mg proteinuria (R80.9) likely due to HTN and TMA (kidney biopsy apr 2016) Anemia (D64.9), HTN (I12.9) chronic sys CHF (EF 35-40%), moderate pulmonary HTN, smoker hypervolemic hypo-osmolar Hyponatremia, Hypokalemia Plan No acute need for renal replacement therapy at this time. Hypertension control with meds as ordered. started losartan and coreg. pt on nicardipine drip. resume clonidine. CHF optimization as per cardiology supplement KDUR Monitor Input/Output, daily weights and renal function with basic metabolic panel started weekly vitamin D avoid correction in serum Na >6-8 meq/24 hrs. if serum Na stays low after normalization of K then may consider tolvaptan Check urine analysis, spot protein/creatinine and albumin/creatinine ratio, renal artery doppler r/o TIFFANIE, renin/naveed and metanephrines Check for 25-OH vitamin D, iPTH, phosphorus level Check work up as C3, C4, total complements, Hep B and Hep C serology, lupus serology Dose meds/antibiotics for reduced GFR. Avoid fleets enema/magnesium based laxatives. Avoid nephrotoxins/NSAIDs/ iodinated contrast (unless needed emergently) Glycemic control Further work up/management as per primary team pt to stop smoking Thanks for allowing me to participate in care of your patient. Will follow patient with you. Please call if any Qs. d/w team Dr Shivam James Office: [phone] Chief Complaint; SOB HPI: Pt is a 37 M with hx of hypertension (1-4 years), CKD stage 3 (Cr 2.7 since 2017), uncontrolled severe HTN, kidney biopsy apr 2016: TMA, chronic sys CHF (EF 35-40%), moderate pulmonary HTN, smoker presented with complaints of headache, SOB and inability to sleep x 3 days. also reports cough. Denies OTC/herbal meds or NSAIDs No recent iodinated contrast exposure. reports compliance to meds. denies urine complaints ROS: Cardiovascular: No chest pain. Pulmonary: c/o shortness of breath Gastrointestinal: denies abdominal pain No nausea. No vomiting. Genitourinary: No pain while urinating. Denies blood in urine now, had it in past. All other negative except as mentioned in HPI Physical Examination: General Appearance: comfortable, in no acute respiratory distress, co-operative . Vitals reviewed and noted as below Head; Atraumatic, normocephalic ENT: no ulcers no thrush. Tongue is midline. Oropharynx: no rash or ulcers. EYES: Pupils are equal, round and reactive to light accommodation. Eye muscles and extraocular movement intact. Sclera is anicteric. Neck; supple no lymphadenopathy, no thyromegaly or bruit Lungs: Increased respiratory rate/effort. Breath sounds bilateral equal and has few basal crackles Heart: Normal rate. s1s2 normal. No rub or gallop. Extremities: no edema. No varicose veins Neurological: Patient is alert, awake and oriented to person, place and time. No focal deficit. Strength bilateral appropriate and equal Skin: Warm and dry. Normal turgor. No rash. Palpitation: Normal elasticity for age Abdomen: Abdomen is soft. Bowel sounds +. There is no abdominal tenderness, no guarding/rigidity no organomegaly Psych: normal insight and normal affect/mood MSK: no joint tenderness or swelling. Digits and nails normal, no deformity : kidney or bladder not palpable Labs/imaging reviewed. Past medical history, past surgical history, family history, social history, allergy reviewed and noted as below Family hx: no hx of CKD. Rest non-contributory. parents with HTN workup : apr 2016: kidney biopsy: TMA renin aldosterone 8 metanephrin WNL imaging: normal adrenals, no hydronephrosis LVEF 35-40% moderate pHTN UA: 3+ protein large blood HIV/YESENIA/ANCA neg Objective - Vital Signs/Intake and Output Vital Signs (last 24 hours): Temp Pulse Resp BP Pulse Ox 98.6 F 101 H 20 204/109 H 98 06/23/17 21:45 06/24/17 09:26 06/24/17 07:20 06/24/17 09:26 06/24/17 07:20 Intake and Output: 06/24/17 06/24/17 06:59 18:59 Intake Total 637 0 Balance 637 0 - Medications Medications: Current Medications Aspirin (Aspirin Chewable) 81 mg PO DAILY [facility] Last Admin: 06/24/17 09:27 Dose: 81 mg Atorvastatin Calcium (Lipitor) 40 mg PO DIN [facility] Last Admin: 06/23/17 17:03 Dose: 40 mg Carvedilol (Coreg) 6.25 mg PO BID [facility] Clonidine HCl (Catapres) 0.2 mg PO TID [facility] Last Admin: 06/24/17 09:25 Dose: 0.2 mg Ergocalciferol (Drisdol 50,000 Intl Units Cap) 1 cap PO Q7D [facility] Furosemide (Lasix) 40 mg IVP DAILY [facility] Last Admin: 06/23/17 17:02 Dose: 40 mg Heparin Sodium (Porcine) (Heparin) 5,000 units SC Q12 [facility] PRN Reason: Protocol Last Admin: 06/24/17 09:27 Dose: 5,000 units Hydralazine HCl (Apresoline) 50 mg PO TID [facility] Last Admin: 06/24/17 09:26 Dose: 50 mg Losartan Potassium (Cozaar) 50 mg PO DAILY [facility] Pantoprazole Sodium (Protonix Ec Tab) 40 mg PO 0600 [facility] Last Admin: 06/24/17 05:28 Dose: 40 mg - Labs Labs: 06/24/17 05:50 06/24/17 05:50 PT 12.9 SECONDS (9.4-12.5) H 06/23/17 13:30 INR 1.13 (0.93-1.08) H 06/23/17 13:30 APTT 26.1 Seconds (25.1-36.5) 06/23/17 13:30
[2017-06-24] MEDS ORDERED: Ergocalciferol 50,000 Intl Units Cap PO SCH (14:00)
--- NOTE | 2017-06-24 16:10 | CP.PCM.PN ---
<Gagandeep Magana - Last Filed: 06/24/17 20:03> Subjective - Date & Time of Evaluation Date of Evaluation: 06/24/17 Time of Evaluation: 16:05 - Subjective Subjective: Medicine Progress Note: Patient seen and assessed at bedside in the ICU. No acute events overnight noted by patient or nursing staff. Patient reports that his headache has improved since admission but that he still has intermittent blurry vision. He denies any f/c, chest pain, palpitations, SOB, cough, abdominal pain, N/V/D/C, dysuria, hematuria, skin changes or any numbness/tingling weakness of any extremity. Objective - Vital Signs/Intake and Output Vital Signs (last 24 hours): Temp Pulse Resp BP Pulse Ox 98.6 F 101 H 20 204/109 H 98 06/23/17 21:45 06/24/17 09:26 06/24/17 07:20 06/24/17 09:26 06/24/17 07:20 Intake and Output: 06/24/17 06/24/17 06:59 18:59 Intake Total 637 0 Balance 637 0 - Medications Medications: Current Medications Amlodipine Besylate (Norvasc) 10 mg PO DAILY [facility] Aspirin (Aspirin Chewable) 81 mg PO DAILY [facility] Last Admin: 06/24/17 09:27 Dose: 81 mg Atorvastatin Calcium (Lipitor) 40 mg PO DIN [facility] Last Admin: 06/23/17 17:03 Dose: 40 mg Carvedilol (Coreg) 6.25 mg PO BID [facility] Clonidine HCl (Catapres) 0.2 mg PO TID [facility] Last Admin: 06/24/17 09:25 Dose: 0.2 mg Ergocalciferol (Drisdol 50,000 Intl Units Cap) 1 cap PO Q7D [facility] Furosemide (Lasix) 40 mg IVP DAILY [facility] Last Admin: 06/23/17 17:02 Dose: 40 mg Heparin Sodium (Porcine) (Heparin) 5,000 units SC Q12 [facility] PRN Reason: Protocol Last Admin: 06/24/17 09:27 Dose: 5,000 units Hydralazine HCl (Apresoline) 50 mg PO TID [facility] Last Admin: 06/24/17 09:26 Dose: 50 mg Losartan Potassium (Cozaar) 50 mg PO DAILY [facility] Pantoprazole Sodium (Protonix Ec Tab) 40 mg PO 0600 [facility] Last Admin: 06/24/17 05:28 Dose: 40 mg - Labs Labs: 06/24/17 05:50 06/24/17 05:50 PT 12.9 SECONDS (9.4-12.5) H 06/23/17 13:30 INR 1.13 (0.93-1.08) H 06/23/17 13:30 APTT 26.1 Seconds (25.1-36.5) 06/23/17 13:30 - Constitutional Appears: Non-toxic, No Acute Distress - Head Exam Head Exam: ATRAUMATIC, NORMOCEPHALIC - Eye Exam Eye Exam: EOMI, Normal appearance. absent: Conjunctival injection, Nystagmus, Periorbital swelling, Periorbital tenderness, Scleral icterus Pupil Exam: NORMAL ACCOMODATION, PERRL. absent: Fixed, Irregular, Miosis, Mydriatic, Unequal - ENT Exam ENT Exam: Mucous Membranes Moist, Normal Exam, Normal Oropharynx - Neck Exam Neck Exam: Full ROM, Normal Inspection. absent: Lymphadenopathy, Meningismus, Tenderness, Thyromegaly - Respiratory Exam Respiratory Exam: Rales (B/l lung bases R>L; improved since previous exam), NORMAL BREATHING PATTERN. absent: Accessory Muscle Use, Chest Wall Tenderness, Decreased Breath Sounds, Clear to Ausculation Bilateral, Prolonged Expiratory Phase, Rhonchi, Wheezes, Respiratory Distress, Stridor - Cardiovascular Exam Cardiovascular Exam: REGULAR RHYTHM, RRR, +S1, +S2. absent: Bradycardia, Tachycardia - GI/Abdominal Exam GI & Abdominal Exam: Soft, Normal Bowel Sounds. absent: Distended, Firm, Guarding, Tenderness, Rebound - Extremities Exam Extremities Exam: Full ROM, Normal Capillary Refill, Normal Inspection. 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 On arrival to the ED, patient's BP was 250/173. Patient was started on Cardene drip and placed under ICU care. His troponin was found to be elevated along with his renal function tests. He was also found to have hyponatremia and hyperkalemia. Intensive Care, Cardiology, Nephrology and Ophthalmology were consulted. Plan: 1. Hypertensive Emergency in the setting of Malignant HTN -S/P Cardene Drip -Continue Amlodipine 10mg, Cozaar 50mg, Coreg 6.25mg BID, Hydralazine 50mg TID, and Clonidine 0.2mg TID 2. CKD Stage 3 -BUN/Creatinine elevated at 35/2.6 -Renal Artery Duplex showing no significant stenosis -Renin/Aldosterone, Metanephrines, 25-OH Vitamin D, iPTH, phosphorus, C3, C4, total complements, Hep B/C serology and lupus serology pending -Continue weekly Vitamin D supplementation -Strict I/O's and daily weights -Nephrology consulted, all recommendations appreciated 3. Elevated Troponin -EKG showed sinus tachycardia, biatrial enlargement, LVH with repolarization abnormality, and ?ST elevation, with consideration of anterior injury or acute infarct -Echo pending -Continue ASA and Lipitor -Cardiology consulted, all recommendations appreciated 4. HTN-Induced Cardiomyopathy -Chest X-Ray showed cardiomegaly -E[place] [id number] -Lasix held in setting of MARIA G on CKD 5. Hypervolemic Hypo-osmolar Hyponatremia and Hypokalemia -Continue replenishment of potassium with KDUR -Avoid correction in serum Na >6-8 meq/24 hrs -May consider Tolvaptan should sodium not correct with potassium correction GI Prophylaxis: Protonix DVT Prophylaxis: Heparin Patient seen and case discussed with attending, Dr. Rosenda Batista. <Rosenda Batista - Last Filed: 06/25/17 11:14> Objective - Vital Signs/Intake and Output Vital Signs (last 24 hours): Temp Pulse Resp BP Pulse Ox 98.1 F 70 18 158/112 H 99 06/25/17 00:00 06/25/17 10:41 06/25/17 07:26 06/25/17 10:41 06/25/17 07:26 Intake and Output: 06/25/17 06/25/17 06:59 18:59 Intake Total 240 Output Total 925 Balance -685 - Medications Medications: Current Medications Amlodipine Besylate (Norvasc) 10 mg PO DAILY [facility]END[facility] Last Admin: 06/25/17 10:40 Dose: 10 mg Aspirin (Aspirin Chewable) 81 mg PO DAILY [facility] Last Admin: 06/25/17 10:40 Dose: 81 mg Atorvastatin Calcium (Lipitor) 40 mg PO DIN [facility] Last Admin: 06/24/17 18:37 Dose: 40 mg Carvedilol (Coreg) 6.25 mg PO BID [facility] Last Admin: 06/25/17 10:41 Dose: 6.25 mg Clonidine HCl (Catapres) 0.2 mg PO TID [facility] Last Admin: 06/25/17 10:41 Dose: Not Given Ergocalciferol (Drisdol 50,000 Intl Units Cap) 1 cap PO Q7D [facility] Last Admin: 06/24/17 15:59 Dose: 1 cap Furosemide (Lasix) 40 mg IVP DAILY [facility] Last Admin: 06/23/17 17:02 Dose: 40 mg Heparin Sodium (Porcine) (Heparin) 5,000 units SC Q12 [facility] PRN Reason: Protocol Last Admin: 06/25/17 10:42 Dose: 5,000 units Hydralazine HCl (Apresoline) 50 mg PO TID [facility] Last Admin: 06/25/17 10:39 Dose: 50 mg Losartan Potassium (Cozaar) 50 mg PO DAILY [facility] Last Admin: 06/25/17 10:41 Dose: 50 mg Pantoprazole Sodium (Protonix Ec Tab) 40 mg PO 0600 [facility] Last Admin: 06/25/17 08:43 Dose: 40 mg - Labs Labs: 06/25/17 07:00 06/25/17 07:00 PT 12.9 SECONDS (9.4-12.5) H 06/23/17 13:30 INR 1.13 (0.93-1.08) H 06/23/17 13:30 APTT 26.1 Seconds (25.1-36.5) 06/23/17 13:30 Attending/Attestation - Attestation I have personally seen and examined this patient.: Yes I have fully participated in the care of the patient.: Yes I have reviewed all pertinent clinical information, including history, physical exam and plan: Yes Notes (Text): I have seen and examined the patient at bedside. 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 Upon admission, he was found to have acute on chronic kidney failure, hyponatremia, elevated troponins, back pain, cough productive of yellowish sputum, headache, blurry vision, lightheadedness, JOINER, orthopnea, elevated BNP, rales and CHF exacerbation. As per patient he has been compliant with his medications. Patient was admitted to ICU. Continue cardene drip, norvasc, cozaar,coreg, hydralazine and clonidine. Cardiology was consulted. Patient was started on aspirin and statins. Echo pending. Peripheral smear did not reveal any hemolytic anemia. Patient has hypervolemic hypoosmolar hyponatremia. Will hold lasix. Work up for secondary causes of hypertension is pending. CT head noted. Ophthalmology consult pending. Upon discharge patient will follow up with Dr Salazar. Dr Rosenda Batista
[2017-06-24 16:55] LABS: CALCIUM 9.4 mg/dL (8.4-10.5)
--- NOTE | 2017-06-24 23:04 | CON ---
DATE: REASON FOR CONSULTATION: Borderline troponin elevation. HISTORY OF PRESENT ILLNESS: The patient is a 37-year-old -[place] male, originally from [facility] [place], who has a history of hypertension, presented because of weakness, headache, and dizziness and was found to have a malignant hypertension. Patient was admitted to the ICU and was started on Cardene drip. Patient denies any substernal chest pain. SOCIAL HISTORY: Non-smoker. MEDICATIONS: Current medications are hydralazine 50 mg t.i.d., aspirin 81 mg once a day, clonidine 0.2 mg t.i.d., subcutaneous heparin 5000 units twice a day, Lasix 20 mg intravenously twice a day, Lipitor 40 mg once a day, intravenous potassium replacement total of 20 mEq a day, Protonix 40 mg p.o. once a day. PHYSICAL EXAMINATION GENERAL: The patient is a young middle-aged male, who does not appear to be in any distress. VITAL SIGNS: Blood pressure 204/109, heart rate 101, respirations 16, temperature 98.6. HEENT: Normocephalic. CHEST: Clear. HEART: S1 and S2 regular. EXTREMITIES: No edema. LABORATORY DATA: Hemoglobin and hematocrit, 13.6 and 38.4. White count and platelet counts are within normal limits. SMA-7; sodium 122, potassium 2.5, chloride 84, CO2 29, glucose 136, BUN 35, and creatinine 2.6. Troponins were 0.5, 0.58, and 0.6. Lactate dehydrogenase and total creatine kinase are elevated. EKG revealed sinus tachycardia, rate 106, biatrial enlargement, LVH with repolarization changes. This is similar findings to earlier EKGs. no acute or significant interval change compared to prior study. Chronic changes with focal encephalomalacia left temporal lobe. No evidence of acute hemorrhagic process, demyelinating disease should be considered. Chest, abdomen, and pelvis CT scan without contrast, subtle diffuse ground glass pulmonary consolidation with lower lobe predominance. In acute setting, this is most likely secondary to alveolar pulmonary edema versus pneumonia. Pulmonary hemorrhages could also have this appearance. Small bilateral pleural effusion, cardiomegaly; otherwise, no significant evidence of acute process on this unenhanced exam. Chest x-ray reveals cardiomegaly with central hilar congestion. Cardiac catheterization performed in May of last year revealed nonobstructive CAD, present small caliber vessel, mildly decreased LV function, 35-40%; non-ischemic cardiomyopathy; and recommendations for aggressive medical therapy. Renal artery duplex study is still pending. ASSESSMENT: 1. Malignant hypertension. 2. Chronic renal insufficiency. 3. Borderline troponin elevation, and likely acute myocardial injury in the absence of chest pain. 4. Hyponatremia and hypokalemia. 5. History of microangiopathy. 6. Congestive heart failure. RECOMMENDATIONS: Continue to get hydralazine, aspirin, clonidine, Coreg, Cozaar, subcutaneous heparin, IV Lasix, and IV potassium replacement. Discontinue dietary sodium restriction. Obtain a portable echocardiograph study. Last year, echo study revealed ejection fraction in the range of 35-40%. The patient is not a suitable candidate for cardiac catheterization. Alfonso Metzger MD
[2017-06-25 07:27] LABS: BASO # 0.04 K/mm3 (0.0-2.0); BASO % 0.4 % (0.0-3.0); EOS # 0.1 (0.0-0.7); EOS % 1.1 % (1.5-5.0); GRAN # 5.48 (1.4-6.5); GRAN % 56.8 % (50.0-68.0); HEMOGLOBIN 14.3 g/dL (14.0-18.0); LYMPH % 31.4 % (22.0-35.0); MEAN CELL VOLUME 92.3 fl (80.0-105.0); MEAN CORPUSCULAR HEMOGLOBIN 32.6 pg (25.0-35.0); MEAN CORPUSCULAR HGB CONC 35.3 g/dl (31.0-37.0); MEAN PLATELET VOLUME 9.7 fl (7.0-11.0); MONO % 10.3 % (1.0-6.0); RBC 4.39 10^6/uL (3.5-6.1); RED CELL DISTRIBUTION WIDTH 14.4 % (11.5-14.5); WHITE BLOOD COUNT 9.7 10^3/ul (4.5-11.0)
[2017-06-25 07:52] LABS: ALB/GLOB RATIO 1.1 (1.1-1.8); ALBUMIN 3.5 g/dL (3.0-4.8); CALCIUM 9.5 mg/dL (8.4-10.5)
[2017-06-25] MEDS: Pantoprazole 40 mg EC Tab PO SCH (08:43)
--- NOTE | 2017-06-25 08:54 | CARD ---
APPROVED REPORT EXAM: Two-dimensional and M-mode echocardiogram with Doppler and color Doppler. Other Information Quality : GoodRhythm : INDICATION MALIGNANT HTN 2D DIMENSIONS Left Atrium (2D)4.8 (1.6-4.0cm)IVSd1.7 (0.7-1.1cm) LVDd4.9 (3.9-5.9cm)PWd1.7 (0.7-1.1cm) LVDs3.9 (2.5-4.0cm)FS (%) 20.0 % LVEF (%)41.0 (>50%) M-Mode DIMENSIONS Aortic Root3.30 (2.2-3.7cm)Aortic Cusp Exc.1.90 (1.5-2.0cm) Aortic Valve AoV Peak Uygwhxin227.0cm/sAoV VTI25.8cmLVOT Peak Kjiyltwe359.0cm/s LVOT VTI21.60cm Mitral Valve MV E Szviveww42.9cm/sMV A Dogvmcsv73.2cm/sE/A ratio1.4 TDI Lateral E' Peak V5.36cm/sMedial E' Peak V4.97cm/sE/Lateral E'16.2 E/Medial E'17.5 Pulmonary Valve PV Peak Ryzadlce99.4cm/sPV Peak Grad.3mmHg Tricuspid Valve TR Peak Ndipldcc084wd/sRAP KMIXTEUB77nbEuLV Peak Gr.23mmHg GIZH11xrFv LEFT VENTRICLE The left ventricle is normal size. There is severe concentric left ventricular hypertrophy. Left ventricle systolic function is moderately impaired. The Ejection Fraction is 35-40%. There is moderately severe global hypokinesis. RIGHT VENTRICLE The right ventricle is normal size. ATRIA The left atrium is mildly dilated. The right atrium size is normal. The interatrial septum is intact with no evidence for an atrial septal defect. AORTIC VALVE The aortic valve is normal in structure. MITRAL VALVE The mitral valve is normal in structure. Mitral regurgitation is mild. TRICUSPID VALVE The tricuspid valve is normal in structure. There is trace tricuspid regurgitation. GREAT VESSELS The aortic root is normal in size. PERICARDIAL EFFUSION There is no pericardial effusion. <Conclusion> The left ventricle is normal size. There is severe concentric left ventricular hypertrophy. Left ventricle systolic function is moderately impaired. The Ejection Fraction is 35-40%. There is moderately severe global hypokinesis. Mitral regurgitation is mild. There is trace tricuspid regurgitation.
--- NOTE | 2017-06-25 11:15 | CP.PCM.PN ---
Subjective - Date & Time of Evaluation Date of Evaluation: 06/25/17 Time of Evaluation: 11:10 - Subjective Subjective: Nephrology Consultation Note: Assessment: stable Hypertensive Chronic Kidney Disease (I12.9) with uncontrolled severe malignant HTN with emergency Chronic Kidney Disease (N18.3) Stage 3 with 1028 mg proteinuria (R80.9) likely due to HTN and TMA (kidney biopsy apr 2016) Anemia (D64.9), HTN (I12.9) chronic sys CHF (EF 35-40%), moderate pulmonary HTN, smoker hypervolemic hypo-osmolar Hyponatremia, Hypokalemia Plan No acute need for renal replacement therapy at this time. Hypertension control with meds as ordered. started losartan and coreg. resume clonidine. can start lasix 40 mg/day tomorrow CHF optimization as per cardiology supplement KDUR as needed Monitor Input/Output, daily weights and renal function with basic metabolic panel started weekly vitamin D avoid correction in serum Na >6-8 meq/24 hrs. if serum Na stays low after normalization of K then may consider tolvaptan Check urine analysis, spot protein/creatinine and albumin/creatinine ratiorenin/ naveed and metanephrines Check iPTH Check lupus serology Dose meds/antibiotics for reduced GFR. Avoid fleets enema/magnesium based laxatives. Avoid nephrotoxins/NSAIDs/ iodinated contrast (unless needed emergently) Glycemic control Further work up/management as per primary team pt to stop smoking d/c planning as per primary team. hopefully, should be stable by tomorrow from renal/BP perspective Thanks for allowing me to participate in care of your patient. Please call if any Qs. d/w team. pt was advised to follow up in renal clinic 1-2 weeks post d/c. he was aware about risks/consequences of non-compliance and lack of follow up. Dr Shivam James Office: [phone] HPI: Pt is a 37 M with hx of hypertension (1-4 years), CKD stage 3 (Cr 2.7 since 2017), uncontrolled severe HTN, kidney biopsy apr 2016: TMA, chronic sys CHF (EF 35-40%), moderate pulmonary HTN, smoker presented with complaints of headache, SOB and inability to sleep x 3 days. also reports cough. Denies OTC/herbal meds or NSAIDs No recent iodinated contrast exposure. reports compliance to meds. denies urine complaints ROS: Cardiovascular: No chest pain. Pulmonary: improved shortness of breath Gastrointestinal: denies abdominal pain No nausea. No vomiting. Genitourinary: No pain while urinating. Denies blood in urine now, had it in past. All other negative except as mentioned in HPI Physical Examination: General Appearance: comfortable, in no acute respiratory distress, co-operative . Vitals reviewed and noted as below Head; Atraumatic, normocephalic ENT: no ulcers no thrush. Tongue is midline. Oropharynx: no rash or ulcers. EYES: Pupils are equal, round and reactive to light accommodation. Eye muscles and extraocular movement intact. Sclera is anicteric. Neck; supple no lymphadenopathy, no thyromegaly or bruit Lungs: normal respiratory rate/effort. Breath sounds bilateral equal and clear Heart: Normal rate. s1s2 normal. No rub or gallop. Extremities: no edema. No varicose veins Neurological: Patient is alert, awake and oriented to person, place and time. No focal deficit. Strength bilateral appropriate and equal Skin: Warm and dry. Normal turgor. No rash. Palpitation: Normal elasticity for age Abdomen: Abdomen is soft. Bowel sounds +. There is no abdominal tenderness, no guarding/rigidity no organomegaly Psych: normal insight and normal affect/mood MSK: no joint tenderness or swelling. Digits and nails normal, no deformity : kidney or bladder not palpable Labs/imaging reviewed. Past medical history, past surgical history, family history, social history, allergy reviewed and noted as below Family hx: no hx of CKD. Rest non-contributory. parents with HTN workup : apr 2016: kidney biopsy: TMA renin aldosterone 8 metanephrin WNL imaging: normal adrenals, no hydronephrosis LVEF 35-40% moderate pHTN UA: 3+ protein large blood HIV/YESENIA/ANCA neg Objective - Vital Signs/Intake and Output Vital Signs (last 24 hours): Temp Pulse Resp BP Pulse Ox 98.1 F 70 18 158/112 H 99 06/25/17 00:00 06/25/17 10:41 06/25/17 07:26 06/25/17 10:41 06/25/17 07:26 Intake and Output: 06/25/17 06/25/17 06:59 18:59 Intake Total 240 Output Total 925 Balance -685 - Medications Medications: Current Medications Amlodipine Besylate (Norvasc) 10 mg PO DAILY [facility] Last Admin: 06/25/17 10:40 Dose: 10 mg Aspirin (Aspirin Chewable) 81 mg PO DAILY [facility] Last Admin: 06/25/17 10:40 Dose: 81 mg Atorvastatin Calcium (Lipitor) 40 mg PO DIN [facility] Last Admin: 06/24/17 18:37 Dose: 40 mg Carvedilol (Coreg) 6.25 mg PO BID [facility] Last Admin: 06/25/17 10:41 Dose: 6.25 mg Clonidine HCl (Catapres) 0.2 mg PO TID [facility] Last Admin: 06/25/17 10:41 Dose: Not Given Ergocalciferol (Drisdol 50,000 Intl Units Cap) 1 cap PO Q7D [facility] Last Admin: 06/24/17 15:59 Dose: 1 cap Furosemide (Lasix) 40 mg IVP DAILY [facility] Last Admin: 06/23/17 17:02 Dose: 40 mg Heparin Sodium (Porcine) (Heparin) 5,000 units SC Q12 [facility] PRN Reason: Protocol Last Admin: 06/25/17 10:42 Dose: 5,000 units Hydralazine HCl (Apresoline) 50 mg PO TID [facility] Last Admin: 06/25/17 10:39 Dose: 50 mg Losartan Potassium (Cozaar) 50 mg PO DAILY [facility] Last Admin: 06/25/17 10:41 Dose: 50 mg Pantoprazole Sodium (Protonix Ec Tab) 40 mg PO 0600 [facility] Last Admin: 06/25/17 08:43 Dose: 40 mg - Labs Labs: 06/25/17 07:00 06/25/17 07:00 PT 12.9 SECONDS (9.4-12.5) H 06/23/17 13:30 INR 1.13 (0.93-1.08) H 06/23/17 13:30 APTT 26.1 Seconds (25.1-36.5) 06/23/17 13:30
--- NOTE | 2017-06-25 13:32 | PN ---
DATE: SUBJECTIVE: The patient is experiencing borderline troponin elevation. He denies any chest pain or shortness of breath. No reported ventricular arrhythmia. PHYSICAL EXAMINATION VITAL SIGNS: Blood pressure 158/112, heart rate 68, temperature 98.1, respirations 18. HEENT: Normocephalic. CHEST: Clear. HEART: S1 and S2 regular. EXTREMITIES: No edema. LABORATORY DATA: Hemoglobin and hematocrit, 14.3 and 40.5. Platelet count and white count are within normal limits. SMA-7; sodium 128, potassium 4.0, chloride 93, CO2 28, glucose 86, BUN 46, and creatinine 3.0. Echocardiographic study reports normal left ventricular size with severe concentric LVH, ejection fraction in the range of 35-40% with [id number] global hypokinesis, mild mitral insufficiency. Peripheral blood smear revealed normocytic, normochromic RBCs with a slight anisocytosis, occasional polychromasia. No schizocyte present. Platelets are adequate. ASSESSMENT: 1. Uncontrolled hypertension. 2. Hypertensive cardiomyopathy. 3. Chronic renal insufficiency. RECOMMENDATIONS: Continue Coreg 6.25 mg twice a day, aspirin 81 mg once a day, subcutaneous heparin 5000 units q.8 hours, Lasix 20 mg orally once a day, and amlodipine 10 mg once a day, increase clonidine to 0.3 mg t.i.d. Obtain a repeat CT scan without contrast. Alfonso Metzger MD
--- NOTE | 2017-06-25 15:50 | CT ---
PROCEDURE: CT HEAD WITHOUT CONTRAST. HISTORY: HTN COMPARISON: CT of the head 05/09/2016 TECHNIQUE: Axial computed tomography images were obtained through the head/brain without intravenous contrast. Radiation dose: Total exam DLP = 876 mGy-cm. This CT exam was performed using one or more of the following dose reduction techniques: Automated exposure control, adjustment of the mA and/or kV according to patient size, and/or use of iterative reconstruction technique. FINDINGS: HEMORRHAGE: There is a small acute hemorrhage along the inferior surface of the left basal ganglia measuring 5 x 16 mm. This is best seen on image 22 of series 4. I spoke with the patient's nurse in the ICU at 3:40 p.m. BRAIN: No mass effect or edema. Multiple subcortical lucencies are seen in both frontal lobes VENTRICLES: Unremarkable. No hydrocephalus. CALVARIUM: Unremarkable. PARANASAL SINUSES: Unremarkable as visualized. No significant inflammatory changes. MASTOID AIR CELLS: Unremarkable as visualized. No inflammatory changes. OTHER FINDINGS: None. IMPRESSION: Multiple chronic subcortical lucencies consistent with microvascular disease. There is an acute hemorrhage along the inferior surface of the left basal ganglia measuring 5 x 16 mm.
--- NOTE | 2017-06-25 16:44 | CP.PCM.PN ---
<Loli Quesada - Last Filed: 06/25/17 22:08> Subjective - Date & Time of Evaluation Date of Evaluation: 06/25/17 Time of Evaluation: 16:39 - Subjective Subjective: PGY2 Note for Dr. Batista Patient was complaining of blurry vision this AM that had worsened since admission. On admission he reported blurry vision in his right eye but this morning he reported blurry vision bilaterally which was worsened every time he would stand up and every time he would eat. Head CT was ordered which showed: "multiple chronic subcortical lucencies consistent with microvascular disease. There is an acute hemorrhage along the inferior surface of the left basal ganglia measuring 5x16mm" Patient had no other complaints. Physical exam was benign. CN2-12 intact, EOMI, PERRL. Patient had no sensory loss in all extremities and motor strength 5/[address] in [address] Neurology Dr. George contacted and patient has neuro checks q4 and placed on fall risk precautions. Nursing speech/swallow eval/PT/OT ordered. ASA and sq heparin discontinued. Objective - Vital Signs/Intake and Output Vital Signs (last 24 hours): Temp Pulse Resp BP Pulse Ox 98.2 F 75 18 154/92 H 97 06/25/17 12:00 06/25/17 14:24 06/25/17 12:00 06/25/17 14:24 06/25/17 12:00 Intake and Output: 06/25/17 06/25/17 06:59 18:59 Intake Total 240 Output Total 925 Balance -685 - Medications Medications: Current Medications Amlodipine Besylate (Norvasc) 10 mg PO DAILY [facility] Last Admin: 06/25/17 10:40 Dose: 10 mg Atorvastatin Calcium (Lipitor) 40 mg PO DIN [facility] Last Admin: 06/24/17 18:37 Dose: 40 mg Carvedilol (Coreg) 6.25 mg PO BID [facility] Last Admin: 06/25/17 10:41 Dose: 6.25 mg Clonidine HCl (Catapres) 0.3 mg PO TID [facility] Last Admin: 06/25/17 14:27 Dose: 0.3 mg Ergocalciferol (Drisdol 50,000 Intl Units Cap) 1 cap PO Q7D [facility] Last Admin: 06/24/17 15:59 Dose: 1 cap Furosemide (Lasix) 40 mg PO DAILY [facility] Hydralazine HCl (Apresoline) 50 mg PO TID [facility] Last Admin: 06/25/17 14:24 Dose: 50 mg Losartan Potassium (Cozaar) 50 mg PO DAILY [facility] Last Admin: 06/25/17 10:41 Dose: 50 mg Pantoprazole Sodium (Protonix Ec Tab) 40 mg PO 0600 [facility] Last Admin: 06/25/17 08:43 Dose: 40 mg - Labs Labs: 06/25/17 07:00 06/25/17 07:00 PT 12.9 SECONDS (9.4-12.5) H 06/23/17 13:30 INR 1.13 (0.93-1.08) H 06/23/17 13:30 APTT 26.1 Seconds (25.1-36.5) 06/23/17 13:30 NIHSS Scale ([place]) Time Performed: 16:30 - How Severe is the Stoke 24 hours post onset S/S Level of Consciousness: 0=Alert LOC to Questions: 0=Both comments correct LOC to commands: 0=Obeys both correctly Best Gaze: 0=Normal Visual: 0=No visual loss Facial: 0=Normal Motor Arm - Left: 0=No drift Motor Arm - Right: 0=No drift Motor Leg - Left: 0=No drift Motor Leg - Right: 0=No drift Limb Ataxia: 0=Absent Sensory: 0=Normal Best Language: 0=No aphasia Dysarthia: 0=Normal articulation Extinction & Inattention (Neglect): 0=Normal, no object Score: 0 Risk Level: No Stroke Risk <Rosenda Batista - Last Filed: 06/26/17 10:46> Objective - Vital Signs/Intake and Output Vital Signs (last 24 hours): Temp Pulse Resp BP Pulse Ox 98 F 58 L 17 132/91 H 99 06/26/17 06:00 06/26/17 10:18 06/26/17 09:40 06/26/17 10:18 06/26/17 09:40 Intake and Output: 06/26/17 06/26/17 06:59 18:59 Intake Total 300 Output Total 1100 Balance -800 - Medications Medications: Current Medications Amlodipine Besylate (Norvasc) 10 mg PO DAILY [facility] Last Admin: 06/26/17 07:48 Dose: 10 mg Atorvastatin Calcium (Lipitor) 40 mg PO DIN [facility] Last Admin: 06/25/17 17:33 Dose: 40 mg Carvedilol (Coreg) 6.25 mg PO BID [facility] Last Admin: 06/26/17 10:13 Dose: 6.25 mg Clonidine HCl (Catapres) 0.3 mg PO TID [facility] Last Admin: 06/26/17 10:13 Dose: 0.3 mg Ergocalciferol (Drisdol 50,000 Intl Units Cap) 1 cap PO Q7D [facility] Last Admin: 06/24/17 15:59 Dose: 1 cap Furosemide (Lasix) 40 mg PO DAILY [facility] Hydralazine HCl (Apresoline) 50 mg PO TID [facility] Last Admin: 06/26/17 10:18 Dose: 50 mg Losartan Potassium (Cozaar) 50 mg PO DAILY [facility] Last Admin: 06/26/17 10:13 Dose: 50 mg Pantoprazole Sodium (Protonix Ec Tab) 40 mg PO 0600 [facility] Last Admin: 06/26/17 06:22 Dose: 40 mg - Labs Labs: 06/26/17 05:15 06/26/17 05:15 PT 12.9 SECONDS (9.4-12.5) H 06/23/17 13:30 INR 1.13 (0.93-1.08) H 06/23/17 13:30 APTT 26.1 Seconds (25.1-36.5) 06/23/17 13:30 Attending/Attestation - Attestation I have personally seen and examined this patient.: Yes I have fully participated in the care of the patient.: Yes I have reviewed all pertinent clinical information, including history, physical exam and plan: Yes
--- NOTE | 2017-06-25 20:59 | CP.PCM.PN ---
Addendum entered and electronically signed by Loli Quesada DO 06/25/17 22:08: Original Note: <Gagandeep Magana - Last Filed: 06/25/17 20:49> Subjective - Date & Time of Evaluation Date of Evaluation: 06/25/17 Time of Evaluation: 11:00 - Subjective Subjective: Medicine Progress Note: Patient seen and assessed at bedside in the ICU. No acute events overnight noted by patient or nursing staff. Patient reports that he still has intermittent blurry vision, which is worse in the morning per patient. He denies any fevers, chills, sensitivity to light, headache, dysphagia, chest pain , palpitations, SOB, cough, abdominal pain, N/V/D/C, dysuria, hematuria, skin changes or any numbness/tingling weakness of any extremity. Objective - Vital Signs/Intake and Output Vital Signs (last 24 hours): Temp Pulse Resp BP Pulse Ox 98.4 F 64 18 152/92 H 98 06/25/17 17:14 06/25/17 18:00 06/25/17 17:14 06/25/17 17:35 06/25/17 17:14 Intake and Output: 06/25/17 06/26/17 18:59 06:59 Intake Total 1020 Output Total 1275 Balance -255 - Medications Medications: Current Medications Amlodipine Besylate (Norvasc) 10 mg PO DAILY [facility] Last Admin: 06/25/17 10:40 Dose: 10 mg Atorvastatin Calcium (Lipitor) 40 mg PO DIN [facility] Last Admin: 06/25/17 17:33 Dose: 40 mg Carvedilol (Coreg) 6.25 mg PO BID [facility] Last Admin: 06/25/17 17:36 Dose: 6.25 mg Clonidine HCl (Catapres) 0.3 mg PO TID [facility] Last Admin: 06/25/17 17:35 Dose: 0.3 mg Ergocalciferol (Drisdol 50,000 Intl Units Cap) 1 cap PO Q7D [facility] Last Admin: 06/24/17 15:59 Dose: 1 cap Furosemide (Lasix) 40 mg PO DAILY [facility] Hydralazine HCl (Apresoline) 50 mg PO TID [facility] Last Admin: 06/25/17 17:33 Dose: 50 mg Losartan Potassium (Cozaar) 50 mg PO DAILY [facility] Last Admin: 06/25/17 10:41 Dose: 50 mg Pantoprazole Sodium (Protonix Ec Tab) 40 mg PO 0600 [facility] Last Admin: 06/25/17 08:43 Dose: 40 mg - Labs Labs: 06/25/17 07:00 06/25/17 07:00 PT 12.9 SECONDS (9.4-12.5) H 06/23/17 13:30 INR 1.13 (0.93-1.08) H 06/23/17 13:30 APTT 26.1 Seconds (25.1-36.5) 06/23/17 13:30 - Constitutional Appears: Non-toxic, No Acute Distress - Head Exam Head Exam: ATRAUMATIC, NORMOCEPHALIC - Eye Exam Eye Exam: EOMI, Normal appearance Pupil Exam: NORMAL ACCOMODATION, PERRL - ENT Exam ENT Exam: Mucous Membranes Moist, Normal Exam - Neck Exam Neck Exam: Full ROM, Normal Inspection. absent: Lymphadenopathy, Tenderness - Respiratory Exam Respiratory Exam: Rales (B/L lung bases L>R; Improved since previous exam), NORMAL BREATHING PATTERN. absent: Accessory Muscle Use, Chest Wall Tenderness, Decreased Breath Sounds, Clear to Ausculation Bilateral, Prolonged Expiratory Phase, Rhonchi, Wheezes, Respiratory Distress, Stridor - Cardiovascular Exam Cardiovascular Exam: REGULAR RHYTHM, RRR, +S1, +S2. absent: Bradycardia, Tachycardia, Clicks, Diastolic murmur, Gallop, Irregular Rhythm, JVD, Rubs, +S4 , Murmur - GI/Abdominal Exam GI & Abdominal Exam: Soft, Normal Bowel Sounds. absent: Distended, Firm, Guarding, Tenderness, Rebound - Extremities Exam Extremities Exam: Full ROM, Normal Capillary Refill, Normal Inspection. 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 On arrival to the ED, patient's BP was 250/173. Patient was started on Cardene drip and placed under ICU care. His troponin was found to be elevated along with his renal function tests. He was also found to have hyponatremia and hyperkalemia. Intensive Care, Cardiology, Nephrology and Ophthalmology were consulted. Plan: 1. Hypertensive Emergency -S/P Cardene Drip -Increased Clonidine dosage to 0.3mg TID -Continue Amlodipine 10mg, Cozaar 50mg, Coreg 6.25mg BID and Hydralazine 50mg TID -Continue telemetry monitoring 2. Acute Intracranial Hemorrhage of Left Basal Ganglia -Initial CT head on admission showed no intracranial hemorrhage -Repeat CT head showed an acute hemorrhage along the inferior surface of the left basal ganglia measuring 5x16mm and multiple chronic subcortical lucencies consistent with microvascular disease -NIHSS Score: 0 -Discontinued ASA and Heparin -Neurochecks Q4H and fall risk precautions -Speech pathology swallow evaluation and PT/OT evaluation pending -Neurology consulted, all recommendations appreciated 3. MARIA G in setting of Chronic Kidney Disease Stage 3 -Renal Artery Duplex showing no significant stenosis -BUN/Creatinine progressively increasing and currently at 46/3.0 -No acute need for QUOTATION CLERK at this time, per Nephrology -Metanephrines within normal limits and HIV/YESENIA/ANCA negative -Continue current HTN and CHF therapy -Continue weekly Vitamin D supplementation -Holding nephrotoxic agents -Strict I/O's and daily weights -Outpatient Nephrology follow up recommended -Nephrology consulted, all recommendations appreciated 4. Elevated Troponin -EKG showed sinus tachycardia, biatrial enlargement, LVH with repolarization abnormality, and ?ST elevation, with consideration of anterior injury or acute infarct -Not a candidate for cardiac cath, per cardiology -Continue Lipitor -Discontinue ASA in setting of ICH -Cardiology consulted, all recommendations appreciated 5. HTN-Induced Cardiomyopathy -CT Chest/Abdomen/Pelvis showed subtle diffuse groundglass pulmonary consolidation with a lower lobe predominance suspicious for pulmonary edema -Echo showed a decreased LVEF of 41.0%, severe concentric LVH, and moderately severe global hypokinesis -Chest X-Ray showed [place]ome[place] [id number] -Lasix held in setting of MARIA G on CKD -Cardiology consulted, all recommendations appreciated 6. Hypervolemic Hypo-osmolar Hyponatremia -Avoid correction in serum Na >6-8 meq/24 hrs -May consider Tolvaptan should sodium not correct with potassium correction -Nephrology consulted, all recommendations appreciated GI Prophylaxis: Protonix DVT Prophylaxis: SCD's (Heparin discontinued in setting of ICH) Patient seen and case discussed with attending, Dr. Rosenda Batista. <Rosenda Batista - Last Filed: 06/26/17 10:45> Objective - Vital Signs/Intake and Output Vital Signs (last 24 hours): Temp Pulse Resp BP Pulse Ox 98 F 58 L 21 132/91 H 99 06/26/17 06:00 06/26/17 10:18 06/26/17 07:40 06/26/17 10:18 06/26/17 07:40 Intake and Output: 06/26/17 06/26/17 06:59 18:59 Intake Total 300 Output Total 1100 Balance -800 - Medications Medications: Current Medications Amlodipine Besylate (Norvasc) 10 mg PO DAILY [facility] Last Admin: 06/26/17 07:48 Dose: 10 mg Atorvastatin Calcium (Lipitor) 40 mg PO DIN [facility] Last Admin: 06/25/17 17:33 Dose: 40 mg Carvedilol (Coreg) 6.25 mg PO BID [facility] Last Admin: 06/26/17 10:13 Dose: 6.25 mg Clonidine HCl (Catapres) 0.3 mg PO TID [facility] Last Admin: 06/26/17 10:13 Dose: 0.3 mg Ergocalciferol (Drisdol 50,000 Intl Units Cap) 1 cap PO Q7D [facility] Last Admin: 06/24/17 15:59 Dose: 1 cap Furosemide (Lasix) 40 mg PO DAILY [facility] Hydralazine HCl (Apresoline) 50 mg PO TID [facility] Last Admin: 06/26/17 10:18 Dose: 50 mg Losartan Potassium (Cozaar) 50 mg PO DAILY [facility] Last Admin: 06/26/17 10:13 Dose: 50 mg Pantoprazole Sodium (Protonix Ec Tab) 40 mg PO 0600 [facility] Last Admin: 06/26/17 06:22 Dose: 40 mg - Labs Labs: 06/26/17 05:15 06/26/17 05:15 PT 12.9 SECONDS (9.4-12.5) H 06/23/17 13:30 INR 1.13 (0.93-1.08) H 06/23/17 13:30 APTT 26.1 Seconds (25.1-36.5) 06/23/17 13:30 Attending/Attestation - Attestation I have personally seen and examined this patient.: Yes I have fully participated in the care of the patient.: Yes I have reviewed all pertinent clinical information, including history, physical exam and plan: Yes Notes (Text): I have seen and examined the patient at bedside. 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 Upon admission, he was found to have acute on chronic kidney failure, hypervolemic hypoosmolar hyponatremia, elevated troponins, back pain, cough productive of yellowish sputum, headache, blurry vision, lightheadedness, JOINER, orthopnea, elevated BNP, rales and CHF exacerbation. As per patient he has been compliant with his medications. Patient was admitted to ICU. He was given cardene drip, norvasc, cozaar, coreg, hydralazine and clonidine. BP has improved. He is off of cardene drip now. His medications have been adjusted. His blurry vision got worse today. CT head was repeated today which revealed acute hemorrhage in left basal ganglia. Aspirin and heparin was discontinued. NIHSS was zero. Neurology consulted. Continue statins. Echo pending. Peripheral smear did not reveal any hemolytic anemia. Will hold lasix. Work up for secondary causes of hypertension is pending. Ophthalmology consult pending. Upon discharge patient will follow up with Dr Salazar. Dr Rosenda Batista
[2017-06-26 05:55] LABS: BASO # 0.04 K/mm3 (0.0-2.0); BASO % 0.6 % (0.0-3.0); EOS # 0.2 (0.0-0.7); EOS % 2.8 % (1.5-5.0); GRAN # 3.97 (1.4-6.5); GRAN % 55.6 % (50.0-68.0); HEMOGLOBIN 13.3 g/dL (14.0-18.0); LYMPH # 2.3 (1.2-3.4); LYMPH % 31.6 % (22.0-35.0); MEAN CELL VOLUME 93.2 fl (80.0-105.0); MEAN CORPUSCULAR HEMOGLOBIN 32.4 pg (25.0-35.0); MEAN CORPUSCULAR HGB CONC 34.8 g/dl (31.0-37.0); MEAN PLATELET VOLUME 9.8 fl (7.0-11.0); MONO # 0.7 (0.1-0.6); MONO % 9.4 % (1.0-6.0); RBC 4.1 10^6/uL (3.5-6.1); RED CELL DISTRIBUTION WIDTH 14.7 % (11.5-14.5); WHITE BLOOD COUNT 7.1 10^3/ul (4.5-11.0)
[2017-06-26] MEDS: Pantoprazole 40 mg EC Tab PO SCH (06:22)
[2017-06-26 06:30] LABS: ALB/GLOB RATIO 1.1 (1.1-1.8); ALBUMIN 3.2 g/dL (3.0-4.8); CALCIUM 9.3 mg/dL (8.4-10.5)
--- NOTE | 2017-06-26 15:22 | CP.PCM.CON ---
History of Present Illness - History of Present Illness History of Present Illness: 37 y/o with PMHX of hypertension, hld, renal biopsy, ef of 35-40%, who is being consulted from neurology for basal ganglia hemorrhage, that is new in onset from several days ago. Patient was complaining of visual disturbance and Ct head was ordered and it showed a 5 by 16 mm linear hemorrhage in the left thalamus. Today, he denies headache, dizziness, weakness, confusion. PMH/PSH: as above. 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 All: nkda. on exam: normal neurological examination, including Visual sainz. Past Patient History - Infectious Disease Hx of Infectious Diseases: None - Tetanus Immunizations Tetanus Immunization: Unknown - Past Medical History & Family History Past Medical History?: Yes - Past Social History Smoking Status: Former Smoker - CARDIAC Hx Cardiac Disorders: Yes (cad, orthopnea) Hx Hypercholesterolemia: Yes Hx Hypertension: Yes - PULMONARY Other/Comment: pt did not admit to a productive cough with blood tinged sputum, admitted having a dry intermitrent cough 06/23/17 - HEENT Hx HEENT Problems: Yes (eyeglasses) Other/Comment: blurred vision as per h&p - RENAL Hx Chronic Kidney Disease: Yes - MUSCULOSKELETAL/RHEUMATOLOGICAL Hx Falls: No - GASTROINTESTINAL Hx Gastrointestinal Disorders: Yes (weight loss 10 lbs over 6 months) Hx Ulcer: Yes - GENITOURINARY/GYNECOLOGICAL Hx Hematuria: Yes - PSYCHIATRIC Hx Substance Use: No (denies marijuana/substance use) - SURGICAL HISTORY Hx Cardiac Catheterization: Yes (2016) Other/Comment: ct guided left renal bx 05/11/2016 - ANESTHESIA Hx Anesthesia: No Hx Anesthesia Reactions: No Hx Malignant Hyperthermia: No Meds Allergies/Adverse Reactions: Allergies Allergy/AdvReac Type Severity Reaction Status Date / Time No Known Allergies Allergy Verified 06/23/17 13:24 - Medications Medications: Current Medications Atorvastatin Calcium (Lipitor) 40 mg PO DIN [facility] Last Admin: 06/25/17 17:33 Dose: 40 mg Carvedilol (Coreg) 6.25 mg PO 0600,1800 [facility] Clonidine HCl (Catapres) 0.3 mg PO TID [facility] Last Admin: 06/26/17 13:17 Dose: 0.3 mg Ergocalciferol (Drisdol 50,000 Intl Units Cap) 1 cap PO Q7D [facility] Last Admin: 06/24/17 15:59 Dose: 1 cap Furosemide (Lasix) 40 mg PO DAILY [facility] Hydralazine HCl (Apresoline) 50 mg PO TID [facility] Last Admin: 06/26/17 13:16 Dose: 50 mg Losartan Potassium (Cozaar) 50 mg PO DAILY [facility] Last Admin: 06/26/17 10:13 Dose: 50 mg Pantoprazole Sodium (Protonix Ec Tab) 40 mg PO 0600 [facility] Last Admin: 06/26/17 06:22 Dose: 40 mg Results - Vital Signs Recent Vital Signs: Last Vital Signs Temp 98 F 06/26/17 06:00 Pulse 55 L 06/26/17 13:17 Resp 17 06/26/17 09:40 BP 132/74 06/26/17 13:17 Pulse Ox 99 06/26/17 09:40 - Labs Result Diagrams: 06/26/17 05:15 06/26/17 05:15 Labs: Laboratory Results - last 24 hr 06/26/17 06/26/17 05:15 05:15 WBC 7.1 D RBC 4.10 Hgb 13.3 L Hct 38.2 L MCV 93.2 MCH 32.4 MCHC 34.8 RDW 14.7 H Plt Count 177 MPV 9.8 Gran % 55.6 Lymph % (Auto) 31.6 [place] % (Auto) 9.4 H Eos % (Auto) 2.8 Baso % (Auto) 0.6 Gran # 3.97 Lymph # (Auto) 2.3 [place] # (Auto) 0.7 H Eos # (Auto) 0.2 Baso # (Auto) 0.04 Sodium 131 L Potassium 3.7 Chloride 96 L Carbon Dioxide 28 Anion Gap 11 BUN 54 H Creatinine 2.9 H Est GFR ( Amer) 30 Est GFR (Non-Af Amer) 25 Random Glucose 89 Calcium 9.3 Phosphorus 5.5 H Magnesium 2.2 Total Bilirubin 0.5 AST 67 H D ALT 73 H Alkaline Phosphatase 69 Total Protein 6.1 Albumin 3.2 Globulin 2.9 Albumin/Globulin Ratio 1.1 - Imaging and Cardiology CT scan - head Status: Image reviewed by me, Report reviewed by me (ct head normal. ) Assessment & Plan - Assessment and Plan (Free Text) Assessment: 37 yr old male with small thalamic hemorrhage that is most likely due to hypertension, ?renal in nature, who is stable neurologically with no focal deficits. I believe that this hemorrhage is secondary to hypertension, but we must rule out aneurysm or cavernoma as well. plan: 1. MRI/MRA Brain without genie 2. Please hold anticoagulants 3. Telemetry will follow MD Charisse, DPN.
--- NOTE | 2017-06-26 17:30 | CP.PCM.PN ---
Subjective - Date & Time of Evaluation Date of Evaluation: 06/26/17 Time of Evaluation: 17:17 - Subjective Subjective: Medicine progress note: Dr. Donny Batista Patient seen and examined at bedside. Patient states that he is still having some blurry vision, but denies any further complaints at this time. Objective - Vital Signs/Intake and Output Vital Signs (last 24 hours): Temp Pulse Resp BP Pulse Ox 98 F 55 L 17 132/74 99 06/26/17 06:00 06/26/17 13:17 06/26/17 09:40 06/26/17 13:17 06/26/17 09:40 Intake and Output: 06/26/17 06/26/17 06:59 18:59 Intake Total 300 Output Total 1100 Balance -800 - Medications Medications: Current Medications Atorvastatin Calcium (Lipitor) 40 mg PO DIN [facility] Last Admin: 06/25/17 17:33 Dose: 40 mg Carvedilol (Coreg) 6.25 mg PO 0600,1800 [facility] Clonidine HCl (Catapres) 0.3 mg PO TID [facility] Last Admin: 06/26/17 13:17 Dose: 0.3 mg Ergocalciferol (Drisdol 50,000 Intl Units Cap) 1 cap PO Q7D [facility] Last Admin: 06/24/17 15:59 Dose: 1 cap Furosemide (Lasix) 40 mg PO DAILY [facility] Hydralazine HCl (Apresoline) 50 mg PO TID [facility] Last Admin: 06/26/17 13:16 Dose: 50 mg Losartan Potassium (Cozaar) 50 mg PO DAILY [facility] Last Admin: 06/26/17 10:13 Dose: 50 mg Pantoprazole Sodium (Protonix Ec Tab) 40 mg PO 0600 [facility] Last Admin: 06/26/17 06:22 Dose: 40 mg - Labs Labs: 06/26/17 05:15 06/26/17 05:15 PT 12.9 SECONDS (9.4-12.5) H 06/23/17 13:30 INR 1.13 (0.93-1.08) H 06/23/17 13:30 APTT 26.1 Seconds (25.1-36.5) 06/23/17 13:30 - Constitutional Appears: Well - Head Exam Head Exam: ATRAUMATIC, NORMAL INSPECTION, NORMOCEPHALIC - Eye Exam Eye Exam: EOMI, Normal appearance, PERRL Pupil Exam: NORMAL ACCOMODATION, PERRL - ENT Exam ENT Exam: Mucous Membranes Moist, Normal Exam - Neck Exam Neck Exam: Full ROM, Normal Inspection. absent: Lymphadenopathy - Respiratory Exam Respiratory Exam: Clear to Ausculation Bilateral, NORMAL BREATHING PATTERN - Cardiovascular Exam Cardiovascular Exam: REGULAR RHYTHM, +S1, +S2. absent: Murmur - GI/Abdominal Exam GI & Abdominal Exam: Soft, Normal Bowel Sounds. absent: Tenderness - Extremities Exam Extremities Exam: Full ROM, Normal Capillary Refill, Normal Inspection. 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 On arrival to the ED, patient's BP was 250/173. Patient was started on Cardene drip and placed under ICU care. His troponin was found to be elevated along with his renal function tests. He was also found to have hyponatremia and hyperkalemia. Intensive Care, Cardiology, Nephrology and Ophthalmology were consulted. Plan: Hypertensive Emergency -S/P Cardene Drip -Increased Clonidine dosage to 0.3mg TID -Continue Amlodipine 10mg, Cozaar 50mg, Coreg 6.25mg BID and Hydralazine 50mg TID -Continue telemetry monitoring Acute Intracranial Hemorrhage of Left Basal Ganglia -Initial CT head on admission showed no intracranial hemorrhage -Repeat CT head showed an acute hemorrhage along the inferior surface of the left basal ganglia measuring 5x16mm and multiple chronic subcortical lucencies consistent with microvascular disease -NIHSS Score: 0 -Discontinued ASA and Heparin -Neurochecks Q4H and fall risk precautions -Speech pathology swallow evaluation and PT/OT evaluation pending -Neurology consulted, all recommendations appreciated MRI Brain without ALEE Hold anticoags -Ophtho consulted: Spoke to them today, they stated that no acute intervention is necessary since we are aware of the source of the deficits. MARIA G in setting of Chronic Kidney Disease Stage 3 -Renal Artery Duplex showing no significant stenosis -BUN/Creatinine progressively increasing and currently at 46/3.0 -No acute need for WASTE MANAGEMENT ENGINEER at this time, per Nephrology -Metanephrines within normal limits and HIV/YESENIA/ANCA negative -Continue current HTN and CHF therapy -Continue weekly Vitamin D supplementation -Holding nephrotoxic agents -Strict I/O's and daily weights -Outpatient Nephrology follow up recommended -Nephrology consulted, all recommendations appreciated Elevated Troponin -EKG showed sinus tachycardia, biatrial enlargement, LVH with repolarization abnormality, and ?ST elevation, with consideration of anterior injury or acute infarct -Not a candidate for cardiac cath, per cardiology -Continue Lipitor -Discontinue ASA in setting of ICH -Cardiology consulted, all recommendations appreciated Dr. Garay, continue current treatment HTN-Induced Cardiomyopathy -CT Chest/Abdomen/Pelvis showed subtle diffuse groundglass pulmonary consolidation with a lower lobe predominance suspicious for pulmonary edema -Echo showed a decreased LVEF of 41.0%, severe concentric LVH, and moderately severe global hypokinesis -Chest X-Ray showed [place]ome[place] [address] -Lasix held in setting of MARIA G on CKD -Cardiology consulted, all recommendations appreciated Hypervolemic Hypo-osmolar Hyponatremia -Avoid correction in serum Na >6-8 meq/24 hrs -May consider Tolvaptan should sodium not correct with potassium correction -Nephrology consulted, all recommendations appreciated GI Prophylaxis: Protonix DVT Prophylaxis: SCD's (Heparin discontinued in setting of ICH)
--- NOTE | 2017-06-26 18:41 | PN ---
DATE: SUBJECTIVE: The patient denies chest pain or headaches. He is still experiencing blurry vision. PHYSICAL EXAMINATION: VITAL SIGNS: Blood pressure 132/54, heart rate 55, respirations 18, temperature 98. HEENT: Normocephalic. CHEST: Clear. HEART: Sounds are regular. EXTREMITIES: No edema. LABORATORY DATA: Hemoglobin and hematocrit 15.3 and 38.2. White count and platelet counts are within normal limits. SMA-7: Sodium 131, potassium 3.7, chloride 96, CO2 of 28. Glucose 89. BUN 54, creatinine 2.9. Hepatitis profile, HIV positive. Serology is negative. Repeat CT scan yesterday, multiple chronic subcortical lucencies consistent with microvascular disease. There is an acute hemorrhage along the anterior surface of the left basal ganglia, measuring 5 x 16 mm. ASSESSMENT: 1. Left basal ganglia bleed. 2. Hypertension. 3. Chronic renal insufficiency. CONDITIONS: Continue current hydralazine, clonidine, Coreg, Cozaar, oral Lasix. Discontinue Norvasc and heparin was discontinued yesterday. Alfonso Metzger MD
--- NOTE | 2017-06-26 18:43 | MRI ---
PROCEDURE: MRI BRAIN WITHOUT CONTRAST HISTORY: hemorrhagic CVA COMPARISON: None. TECHNIQUE: Multiplanar, multisequence MR images of the brain were obtained without intravenous contrast enhancement. FINDINGS: HEMORRHAGE: There is focal susceptibility artifact noted at the medial aspect of the left temporal lobe inferior to the basal ganglia and anterior to the midbrain likely represent small hemorrhagic lesion may represent old or subacute hemorrhagic infarction. DWI: There is suspicious for small diffusion restriction at the medial aspect of the left temporal lobe adjacent to the above-mentioned focal susceptibility artifact. BRAIN PARENCHYMA: There are multiple foci of hyperintense T2 and FLAIR signal seen in the subcortical white matter of uncertain etiology. No evidence of significant atrophy. VENTRICLES: Unremarkable. No hydrocephalus. CRANIUM: Unremarkable. ORBITS: Grossly unremarkable. PARANASAL SINUSES/MASTOIDS: Clear VASCULAR SYSTEM: Skull base flow voids intact. OTHER FINDINGS: None. IMPRESSION: Focal area of susceptibility artifact and small diffusion restriction noted at the medial aspect of the left temporal lobe may represent small hemorrhagic infarction. Nonspecific foci of hyperintense T2 and FLAIR signal seen in the subcortical white matter. The differential consideration includes sequela of infection or inflammatory process, migraine disease Lyme disease less likely demyelination disease or chronic microvascular white matter ischemic disease.
--- NOTE | 2017-06-26 23:35 | CP.PCM.PN ---
Subjective - Date & Time of Evaluation Date of Evaluation: 06/26/17 Time of Evaluation: 15:00 - Subjective Subjective: Nephrology Consultation Note: Assessment: stable Hypertensive Chronic Kidney Disease (I12.9) with uncontrolled severe malignant HTN with emergency Chronic Kidney Disease (N18.3) Stage 3 with 1028 mg proteinuria (R80.9) likely due to HTN and TMA (kidney biopsy apr 2016) Anemia (D64.9), HTN (I12.9) chronic sys CHF (EF 35-40%), moderate pulmonary HTN, smoker hypervolemic hypo-osmolar Hyponatremia, Hypokalemia Plan No acute need for renal replacement therapy at this time. cr stable Hypertension control with meds as ordered. CHFper cardiology lytes reviewed Monitor Input/Output started weekly vitamin D complements lvels normal Physical Examination: General Appearance: comfortable, in no acute respiratory distress, co-operative . Head; Atraumatic, normocephalic ENT: no ulcers no thrush. Tongue is midline. Oropharynx: no rash or ulcers. EYES:Eye muscles and extraocular movement intact. Sclera is anicteric. Neck; supple no lymphadenopathy, no thyromegaly or bruit Lungs: normal respiratory rate/effort. Breath sounds bilateral equal and clear Heart: Normal rate. s1s2 normal. No rub or gallop. Extremities: no edema. No varicose veins Neurological: Patient is alert, awake and oriented to person, place and time. No focal deficit. Strength bilateral appropriate and equal Skin: Warm and dry. Normal turgor. No rash. Palpitation: Normal elasticity for age Abdomen: Abdomen is soft. Bowel sounds +. There is no abdominal tenderness, no guarding/rigidity no organomegaly Psych: normal insight and normal affect/mood MSK: no joint tenderness or swelling Objective - Vital Signs/Intake and Output Vital Signs (last 24 hours): Temp Pulse Resp BP Pulse Ox 98 F 55 L 20 137/97 H 96 06/26/17 17:41 06/26/17 22:00 06/26/17 17:41 06/26/17 17:41 06/26/17 17:41 - Medications Medications: Current Medications Atorvastatin Calcium (Lipitor) 40 mg PO DIN [facility] Last Admin: 06/26/17 17:27 Dose: 40 mg Carvedilol (Coreg) 6.25 mg PO 0600,1800 [facility] Last Admin: 06/26/17 17:27 Dose: 6.25 mg Clonidine HCl (Catapres) 0.3 mg PO TID [facility] Last Admin: 06/26/17 17:26 Dose: 0.3 mg Ergocalciferol (Drisdol 50,000 Intl Units Cap) 1 cap PO Q7D [facility] Last Admin: 06/24/17 15:59 Dose: 1 cap Furosemide (Lasix) 40 mg PO DAILY [facility] Hydralazine HCl (Apresoline) 50 mg PO TID [facility] Last Admin: 06/26/17 17:27 Dose: 50 mg Losartan Potassium (Cozaar) 50 mg PO DAILY [facility] Last Admin: 06/26/17 10:13 Dose: 50 mg Pantoprazole Sodium (Protonix Ec Tab) 40 mg PO 0600 [facility] Last Admin: 06/26/17 06:22 Dose: 40 mg - Labs Labs: 06/26/17 05:15 06/26/17 05:15 PT 12.9 SECONDS (9.4-12.5) H 06/23/17 13:30 INR 1.13 (0.93-1.08) H 06/23/17 13:30 APTT 26.1 Seconds (25.1-36.5) 06/23/17 13:30
[2017-06-27] MEDS: Pantoprazole 40 mg EC Tab PO SCH (06:00)
--- NOTE | 2017-06-27 12:23 | CP.PCM.PN ---
Addendum entered and electronically signed by Aashish Solares DO 14:41: Updated Assessment and Plan: Hypertensive Emergency - Resolved - Increased Clonidine dosage to 0.3mg TID - Continue Cozaar 50mg, Coreg 6.25mg BID and Hydralazine 50mg TID - Continue telemetry monitoring, keep BP < 140/80 Acute Intracranial Hemorrhage of Left Basal Ganglia - Initial CT head on admission showed no intracranial hemorrhage - Repeat CT head showed an acute hemorrhage along the inferior surface of the left basal ganglia measuring 5x16mm and multiple chronic subcortical lucencies consistent with microvascular disease - NIHSS Score: 0 - Discontinued ASA and Heparin - Neurochecks Q4H and fall risk precautions - PT/OT evaluation: recs appreciated -Neurology consulted, all recommendations appreciated MRI Brain without ALEE Head MRA: performed, pending read Hold anticoags -Ophtho consulted: Spoke to them yesterday, they stated that no acute intervention is necessary since we are aware of the source of the deficits. MARIA G in setting of Chronic Kidney Disease Stage 3 - Renal Artery Duplex showing no significant stenosis - BUN/Creatinine currently at 54/2.9 - No acute need for SPECIAL NEEDS TUTOR at this time, per Nephrology - Continue current HTN and CHF therapy - Continue weekly Vitamin D supplementation - Holding nephrotoxic agents - Strict I/O's and daily weights - Outpatient Nephrology follow up recommended - Nephrology consulted, all recommendations appreciated Elevated Troponin - EKG showed sinus tachycardia, biatrial enlargement, LVH with repolarization abnormality, and ?ST elevation, with consideration of anterior injury or acute infarct - Not a candidate for cardiac cath, per cardiology - Continue Lipitor - Discontinue ASA in setting of intracranial hemorrhage - Cardiology consulted, all recommendations appreciated Dr. Garay, continue current treatment HTN-Induced Cardiomyopathy - CT Chest/Abdomen/Pelvis showed subtle diffuse groundglass pulmonary consolidation with a lower lobe predominance suspicious for pulmonary edema - Echo showed a decreased LVEF of 41.0%, severe concentric LVH, and moderately severe global hypokinesis - Chest X-Ray showed cardiomegaly [place] [address] - Lasix held in setting of MARIA G on CKD - Cardiology consulted, all recommendations appreciated Hypervolemic Hypo-osmolar Hyponatremia -Avoid correction in serum Na >6-8 meq/24 hrs -Nephrology consulted, all recommendations appreciated No acute need for renal replacement therapy at this time - Creatinine stabilized Hypertension control with meds as ordered. CHF per cardiology lytes reviewed Monitor Input/Output started weekly vitamin D GI Prophylaxis: Protonix DVT Prophylaxis: SCD's (Heparin discontinued in setting of intracranial hemorrhage) Original Note: <SujathaAashish Markham - Last Filed: 06/27/17 12:31> Subjective - Date & Time of Evaluation Date of Evaluation: 06/27/17 Time of Evaluation: 12:20 - Subjective Subjective: Medicine progress note for Dr. Marroquin Patient seen and examined at bedside. Patient states he is doing well today, blurry vision has decreased. Denies any symptoms. Objective - Vital Signs/Intake and Output Vital Signs (last 24 hours): Temp Pulse Resp BP Pulse Ox 97.7 F 59 L 20 136/90 100 06/27/17 06:00 06/27/17 09:50 06/27/17 06:00 06/27/17 09:50 06/27/17 06:00 Intake and Output: 06/27/17 06/27/17 06:59 18:59 Intake Total 1010 Output Total 5 Balance 1005 - Medications Medications: Current Medications Atorvastatin Calcium (Lipitor) 40 mg PO DIN [facility] Last Admin: 06/26/17 17:27 Dose: 40 mg Carvedilol (Coreg) 6.25 mg PO 0600,1800 [facility] Last Admin: 06/27/17 05:59 Dose: 6.25 mg Clonidine HCl (Catapres) 0.3 mg PO TID [facility] Last Admin: 06/27/17 09:50 Dose: 0.3 mg Ergocalciferol (Drisdol 50,000 Intl Units Cap) 1 cap PO Q7D [facility] Last Admin: 06/24/17 15:59 Dose: 1 cap Furosemide (Lasix) 40 mg PO DAILY [facility] Hydralazine HCl (Apresoline) 50 mg PO TID [facility] Last Admin: 06/27/17 09:50 Dose: 50 mg Losartan Potassium (Cozaar) 50 mg PO DAILY [facility] Last Admin: 06/27/17 09:50 Dose: 50 mg Pantoprazole Sodium (Protonix Ec Tab) 40 mg PO 0600 [facility] Last Admin: 06/27/17 06:00 Dose: 40 mg - Labs Labs: 06/26/17 05:15 06/26/17 05:15 PT 12.9 SECONDS (9.4-12.5) H 03/14/18 13:30 INR 1.13 (0.93-1.08) H 06/23/17 13:30 APTT 26.1 Seconds (25.1-36.5) 06/23/17 13:30 - Constitutional Appears: Well - Head Exam Head Exam: ATRAUMATIC, NORMAL INSPECTION, NORMOCEPHALIC - Eye Exam Eye Exam: EOMI, Normal appearance, PERRL Pupil Exam: NORMAL ACCOMODATION, PERRL - ENT Exam ENT Exam: Mucous Membranes Moist, Normal Exam - Neck Exam Neck Exam: Full ROM, Normal Inspection. absent: Lymphadenopathy - Respiratory Exam Respiratory Exam: Clear to Ausculation Bilateral, NORMAL BREATHING PATTERN - Cardiovascular Exam Cardiovascular Exam: REGULAR RHYTHM, +S1, +S2. absent: Murmur - GI/Abdominal Exam GI & Abdominal Exam: Soft, Normal Bowel Sounds. absent: Tenderness - Extremities Exam Extremities Exam: Full ROM, Normal Capillary Refill, Normal Inspection. 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 On arrival to the ED, patient's BP was 250/173. Patient was started on Cardene drip and placed under ICU care. His troponin was found to be elevated along with his renal function tests. He was also found to have hyponatremia and hyperkalemia. Intensive Care, Cardiology, Nephrology and Ophthalmology were consulted. Plan: Hypertensive Emergency - Resolved -S/P Cardene Drip -Increased Clonidine dosage to 0.3mg TID -Continue Amlodipine 10mg, Cozaar 50mg, Coreg 6.25mg BID and Hydralazine 50mg TID -Continue telemetry monitoring, keep BP < 140/80 Acute Intracranial Hemorrhage of Left Basal Ganglia -Initial CT head on admission showed no intracranial hemorrhage -Repeat CT head showed an acute hemorrhage along the inferior surface of the left basal ganglia measuring 5x16mm and multiple chronic subcortical lucencies consistent with microvascular disease -NIHSS Score: 0 -Discontinued ASA and Heparin -Neurochecks Q4H and fall risk precautions -Speech pathology swallow evaluation and PT/OT evaluation pending -Neurology consulted, all recommendations appreciated MRI Brain without ALEE Head MRA: performed, pending read Hold anticoags -Ophtho consulted: Spoke to them today, they stated that no acute intervention is necessary since we are aware of the source of the deficits. MARIA G in setting of Chronic Kidney Disease Stage 3 -Renal Artery Duplex showing no significant stenosis -BUN/Creatinine progressively increasing and currently at 46/3.0 -No acute need for SPECIAL NEEDS TUTOR at this time, per Nephrology -Metanephrines within normal limits and HIV/YESENIA/ANCA negative -Continue current HTN and CHF therapy -Continue weekly Vitamin D supplementation -Holding nephrotoxic agents -Strict I/O's and daily weights -Outpatient Nephrology follow up recommended -Nephrology consulted, all recommendations appreciated Elevated Troponin -EKG showed sinus tachycardia, biatrial enlargement, LVH with repolarization abnormality, and ?ST elevation, with consideration of anterior injury or acute infarct -Not a candidate for cardiac cath, per cardiology -Continue Lipitor -Discontinue ASA in setting of ICH -Cardiology consulted, all recommendations appreciated Dr. Garay, continue current treatment HTN-Induced Cardiomyopathy -CT Chest/Abdomen/Pelvis showed subtle diffuse groundglass pulmonary consolidation with a lower lobe predominance suspicious for pulmonary edema -Echo showed a decreased LVEF of 41.0%, severe concentric LVH, and moderately severe global hypokinesis -Chest X-Ray showed cardiomeg[place] [address] -Lasix held in setting of MARIA G on CKD -Cardiology consulted, all recommendations appreciated Hypervolemic Hypo-osmolar Hyponatremia -Avoid correction in serum Na >6-8 meq/24 hrs -May consider Tolvaptan should sodium not correct with potassium correction -Nephrology consulted, all recommendations appreciated No acute need for renal replacement therapy at this time. cr stable Hypertension control with meds as ordered. CHFper cardiology lytes reviewed Monitor Input/Output started weekly vitamin D complements lvels normal GI Prophylaxis: Protonix DVT Prophylaxis: SCD's (Heparin discontinued in setting of ICH) Dispo: Patient may be stable for discharge tomorrow, needs to follow up with PMD and Ophtho <Rangasamy,Ajantha - Last Filed: 06/27/17 16:29> Objective - Vital Signs/Intake and Output Vital Signs (last 24 hours): Temp Pulse Resp BP Pulse Ox 97.8 F 55 L 16 136/91 H 100 06/27/17 12:00 06/27/17 12:00 06/27/17 12:00 06/27/17 12:00 06/27/17 06:00 Intake and Output: 06/27/17 06/27/17 06:59 18:59 Intake Total 1010 Output Total 5 Balance 1005 - Medications Medications: Current Medications Atorvastatin Calcium (Lipitor) 40 mg PO DIN [facility] Last Admin: 06/26/17 17:27 Dose: 40 mg Carvedilol (Coreg) 6.25 mg PO 0600,1800 [facility] Last Admin: 06/27/17 05:59 Dose: 6.25 mg Clonidine HCl (Catapres) 0.3 mg PO TID [facility] Last Admin: 06/27/17 09:50 Dose: 0.3 mg Ergocalciferol (Drisdol 50,000 Intl Units Cap) 1 cap PO Q7D [facility] Last Admin: 06/24/17 15:59 Dose: 1 cap Furosemide (Lasix) 40 mg PO DAILY [facility] Hydralazine HCl (Apresoline) 75 mg PO TID [facility] Losartan Potassium (Cozaar) 50 mg PO DAILY [facility] Last Admin: 06/27/17 09:50 Dose: 50 mg Pantoprazole Sodium (Protonix Ec Tab) 40 mg PO 0600 [facility] Last Admin: 06/27/17 06:00 Dose: 40 mg - Labs Labs: 06/26/17 05:15 06/26/17 05:15 PT 12.9 SECONDS (9.4-12.5) H 06/23/17 13:30 INR 1.13 (0.93-1.08) H 06/23/17 13:30 APTT 26.1 Seconds (25.1-36.5) 06/23/17 13:30 Attending/Attestation - Attestation I have personally seen and examined this patient.: Yes I have fully participated in the care of the patient.: Yes I have reviewed all pertinent clinical information, including history, physical exam and plan: Yes Notes (Text): 06/27/17 14:21 attending note; Patient seen and examined with resident. 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 Upon admission, he was found to have acute on chronic kidney failure, hypervolemic hypoosmolar hyponatremia, elevated troponins, back pain, cough productive of yellowish sputum, headache, blurry vision and CHF exacerbation. Patient was admitted to ICU and treated with cardene drip. currently on cozaar , coreg, hydralazine and clonidine. BP has improved. Repeat CT head revealed acute hemorrhage in left basal ganglia. Aspirin and heparin was discontinued. neurology evaluation appreciated. MRI showed bleed chronic microvascular changes. Continue statins. Echo showed ejection fraction of 35-40% with moderate global hypokinesis. Peripheral smear did not reveal any hemolytic anemia. chronic kidney disease; creatinine baseline. Patient had renal biopsy showed hypertensive nephrosclerosis. Past workup for secondary hypertension was negative in 04/28. Patient needs close nephrology follow up as outpatient. Work up for secondary causes of hypertension is pending. Ophthalmology Recommendation appreciatd. Patient will need outpatien follow-up. PT evaluation appreciated. Possible discharge home tomorrow if clinically stable. Upon discharge patient will follow up with Dr Salazar. 06/27/17 16:27 06/27/17 16:28
--- NOTE | 2017-06-27 18:43 | PN ---
DATE: SUBJECTIVE: The patient denies any dizziness, weakness, or numbness. PHYSICAL EXAMINATION: VITAL SIGNS: Blood pressure 156/90, heart rate 59, temperature 97.7. HEENT: Normocephalic. CHEST: Clear. HEART: S1 and S2 regular. EXTREMITIES: No edema. RADIOLOGICAL DATA: A brain MRI performed yesterday, impression was focal area of susceptibility artifact and small diffusion restriction noted at the medial aspect of the left temporal lobe, may represent small hemorrhagic infarct. ASSESSMENT: 1. Uncontrolled hypertension. 2. Left basal ganglia and hemorrhagic infarct. 3. Chronic insufficiency. 4. Systolic heart failure. RECOMMENDATIONS: Increase hydralazine to 75 mg t.i.d., continue clonidine 0.3 mg t.i.d., Cozaar 50 mg once a day, Lasix 40 mg twice a day, Lipitor 40 mg once a day. Alfonso Metzger MD
--- NOTE | 2017-06-27 20:12 | MRI ---
EXAM: MR Angiography Head Without Intravenous Contrast EXAM DATE/TIME: 06/27/2017 10:27 AM CLINICAL HISTORY: The patient age is 37 years old and is male; Signs and symptoms; Other: Bleed; Additional info: Basal thalamic hemorrhage Facility exam id and description: Mri mra heads mra head without contrast TECHNIQUE: Magnetic resonance angiography images of the head without intravenous contrast. COMPARISON: MR - BRAIN WITHOUT CONTRAST 2017-06-26 16:37 FINDINGS: Right internal carotid artery: No acute findings. Intracranial segment is patent with no significant stenosis. No aneurysm. Right anterior cerebral artery: No occlusion or significant stenosis. No aneurysm. Right middle cerebral artery: No occlusion or significant stenosis. No aneurysm. Right posterior cerebral artery: No occlusion or significant stenosis. No aneurysm. Right vertebral artery: There is limited evaluation of the distal vertebral arteries are out of the field of view of this study. The visualized distal right vertebral artery is small in caliber, without occlusion. Left internal carotid artery: No acute findings. Intracranial segment is patent with no significant stenosis. No aneurysm. Left anterior cerebral artery: No occlusion or significant stenosis. No aneurysm. Left middle cerebral artery: No occlusion or significant stenosis. No aneurysm. Left posterior cerebral artery: No occlusion or significant stenosis. No aneurysm. Left vertebral artery: See above. A dominant distal left vertebral artery is visualized. Basilar artery: There is mild luminal narrowing of the mid basilar artery, which may be developmental or due to stenosis. The degree of luminal narrowing is approximately 30%. No aneurysm. Brain: Within the medial left temporal lobe, there is a 0.5 x 0.3 cm area of hyperintensity, consistent with the area of hemorrhage on the previous MRI. A small vascular malformation cannot be excluded. IMPRESSION: 1. Within the medial left temporal lobe, there is a 0.5 x 0.3 cm area of hyperintensity, consistent with the area of hemorrhage on the previous MRI. A small vascular malformation cannot be excluded. A follow-up MRI/MRA is recommended. 2. There is mild luminal narrowing of the mid basilar artery, which may be developmental or due to stenosis. The degree of luminal narrowing is approximately 30%. 3. A dominant distal left vertebral artery is visualized.
[2017-06-28] MEDS: Pantoprazole 40 mg EC Tab PO SCH (05:25)
[2017-06-28 06:34] VITALS: O2SAT 97
[2017-06-28 09:48] LABS: BASO # 0.03 K/mm3 (0.0-2.0); BASO % 0.4 % (0.0-3.0); EOS # 0.4 (0.0-0.7); EOS % 5.2 % (1.5-5.0); GRAN # 5.83 (1.4-6.5); GRAN % 68.3 % (50.0-68.0); HEMOGLOBIN 14.1 g/dL (14.0-18.0); LYMPH # 1.8 (1.2-3.4); LYMPH % 21.6 % (22.0-35.0); MEAN CELL VOLUME 96.3 fl (80.0-105.0); MEAN CORPUSCULAR HGB CONC 34.3 g/dl (31.0-37.0); MEAN PLATELET VOLUME 9.2 fl (7.0-11.0); MONO # 0.4 (0.1-0.6); MONO % 4.5 % (1.0-6.0); RBC 4.27 10^6/uL (3.5-6.1); RED CELL DISTRIBUTION WIDTH 14.7 % (11.5-14.5); WHITE BLOOD COUNT 8.5 10^3/ul (4.5-11.0)
[2017-06-28 09:59] LABS: ALB/GLOB RATIO 1.1 (1.1-1.8); ALBUMIN 3.7 g/dL (3.0-4.8); CALCIUM 9.7 mg/dL (8.4-10.5)
--- NOTE | 2017-06-28 10:53 | CP.PCM.PN ---
Subjective - Date & Time of Evaluation Date of Evaluation: 06/28/17 Time of Evaluation: 10:51 - Subjective Subjective: Nephrology Consultation Note: Assessment: stable Hypertensive Chronic Kidney Disease (I12.9) with uncontrolled severe malignant HTN with emergency Chronic Kidney Disease (N18.3) Stage 3 with 1028 mg proteinuria (R80.9) likely due to HTN and TMA (kidney biopsy apr 2016) Anemia (D64.9), HTN (I12.9) chronic sys CHF (EF 35-40%), moderate pulmonary HTN, smoker hypervolemic hypo-osmolar Hyponatremia, Hypokalemia Hemorrhagic CVA Plan No acute need for renal replacement therapy at this time. Hypertension control with meds as ordered. started losartan and coreg. also on clonidine. CHF optimization as per cardiology Monitor Input/Output, daily weights and renal function with basic metabolic panel started weekly vitamin D Pending renin/naveed and metanephrines and lupus serology Dose meds/antibiotics for reduced GFR. Avoid fleets enema/magnesium based laxatives. Avoid nephrotoxins/NSAIDs/ iodinated contrast (unless needed emergently) Glycemic control Further work up/management as per primary team pt to stop smoking d/c planning as per primary team. stable today from renal/BP perspective Thanks for allowing me to participate in care of your patient. Please call if any Qs. d/w team. pt was advised to follow up in renal clinic 1-2 weeks post d/c. he was aware about risks/consequences of non-compliance and lack of follow up. Dr Shivam James Office: [phone] HPI: Pt is a 37 M with hx of hypertension (1-4 years), CKD stage 3 (Cr 2.7 since 2017), uncontrolled severe HTN, kidney biopsy apr 2016: TMA, chronic sys CHF (EF 35-40%), moderate pulmonary HTN, smoker presented with complaints of headache, SOB and inability to sleep x 3 days. also reports cough. Denies OTC/herbal meds or NSAIDs No recent iodinated contrast exposure. reports compliance to meds. denies urine complaints ROS: Cardiovascular: No chest pain. Pulmonary: improved shortness of breath Gastrointestinal: denies abdominal pain No nausea. No vomiting. Genitourinary: No pain while urinating. Denies blood in urine now, had it in past. All other negative except as mentioned in HPI Physical Examination: General Appearance: comfortable, in no acute respiratory distress, co-operative . Vitals reviewed and noted as below Head; Atraumatic, normocephalic ENT: no ulcers no thrush. Tongue is midline. Oropharynx: no rash or ulcers. EYES: Pupils are equal, round and reactive to light accommodation. Eye muscles and extraocular movement intact. Sclera is anicteric. Neck; supple no lymphadenopathy, no thyromegaly or bruit Lungs: normal respiratory rate/effort. Breath sounds bilateral equal and clear Heart: Normal rate. s1s2 normal. No rub or gallop. Extremities: no edema. No varicose veins Neurological: Patient is alert, awake and oriented to person, place and time. No focal deficit. Strength bilateral appropriate and equal Skin: Warm and dry. Normal turgor. No rash. Palpitation: Normal elasticity for age Abdomen: Abdomen is soft. Bowel sounds +. There is no abdominal tenderness, no guarding/rigidity no organomegaly Psych: normal insight and normal affect/mood MSK: no joint tenderness or swelling. Digits and nails normal, no deformity : kidney or bladder not palpable Labs/imaging reviewed. Past medical history, past surgical history, family history, social history, allergy reviewed and noted as below Family hx: no hx of CKD. Rest non-contributory. parents with HTN workup : apr 2016: kidney biopsy: TMA renin aldosterone 8 metanephrin WNL imaging: normal adrenals, no hydronephrosis LVEF 35-40% moderate pHTN UA: 3+ protein large blood HIV/YESENIA/ANCA neg Objective - Vital Signs/Intake and Output Vital Signs (last 24 hours): Temp Pulse Resp BP Pulse Ox 97.6 F 60 20 149/93 H 97 06/28/17 06:00 06/28/17 09:56 06/28/17 06:00 06/28/17 09:56 06/28/17 06:00 Intake and Output: 06/28/17 06/28/17 06:59 18:59 Intake Total 420 Balance 420 - Medications Medications: Current Medications Atorvastatin Calcium (Lipitor) 40 mg PO DIN [facility] Last Admin: 06/27/17 18:18 Dose: 40 mg Carvedilol (Coreg) 6.25 mg PO 0600,1800 [facility] Last Admin: 06/28/17 05:25 Dose: Not Given Clonidine HCl (Catapres) 0.3 mg PO TID [facility] Last Admin: 06/28/17 09:51 Dose: 0.3 mg Ergocalciferol (Drisdol 50,000 Intl Units Cap) 1 cap PO Q7D [facility] Last Admin: 06/24/17 15:59 Dose: 1 cap Furosemide (Lasix) 40 mg PO DAILY [facility] Hydralazine HCl (Apresoline) 75 mg PO TID [facility] Last Admin: 06/28/17 09:56 Dose: 75 mg Losartan Potassium (Cozaar) 50 mg PO DAILY [facility] Last Admin: 06/28/17 09:50 Dose: 50 mg Pantoprazole Sodium (Protonix Ec Tab) 40 mg PO 0600 [facility] Last Admin: 06/28/17 05:25 Dose: 40 mg - Labs Labs: 06/28/17 09:40 06/28/17 09:40 PT 12.9 SECONDS (9.4-12.5) H 06/23/17 13:30 INR 1.13 (0.93-1.08) H 06/23/17 13:30 APTT 26.1 Seconds (25.1-36.5) 06/23/17 13:30
[2017-06-28 12:37] VITALS: BP 134/93; RESP 18; TEMP 98.1
--- NOTE | 2017-06-28 12:45 | CP.PCM.PN ---
Subjective - Date & Time of Evaluation Date of Evaluation: 06/28/17 Time of Evaluation: 12:43 - Subjective Subjective: Mr. Rosa was seen and examined at the bedside. He is alert, oriented in all spheres. He denies any headache, dizziness, lightheadedness, nausea or vomiting , but states of his vision is improving. He is able to follow simple commands such as field accommodation, finger to nose test. Sensation remains intact. MRI of the brains done 06/26/2017 showed focal area of susceptibility artifact and small diffusion restriction noted at the medial aspect of the left temporal lobe which represent small hemorrhagic infarction. There is also a nonspecific foci signal seen in the subcortical white matter. MRA of the head done 2017 showed within the medial left temporal lobe, there is a 0.5x 0.3 cm area of hyperintensity consistent with the area of hemorrhage. There is a mild luminal narrowing of the mid basilar artery which may be developmental or due to stenosis. The degree of luminal narrowing is approximately 30 %.There was no untoward events overnight. Objective - Vital Signs/Intake and Output Vital Signs (last 24 hours): Temp Pulse Resp BP Pulse Ox 98.1 F 56 L 18 134/93 H 97 06/28/17 12:00 06/28/17 12:00 06/28/17 12:00 06/28/17 12:00 06/28/17 06:00 Intake and Output: 06/28/17 06/28/17 06:59 18:59 Intake Total 420 Balance 420 - Medications Medications: Current Medications Atorvastatin Calcium (Lipitor) 40 mg PO DIN [facility] Last Admin: 06/27/17 18:18 Dose: 40 mg Carvedilol (Coreg) 6.25 mg PO 0600,1800 [facility] Last Admin: 06/28/17 05:25 Dose: Not Given Clonidine HCl (Catapres) 0.3 mg PO TID [facility] Last Admin: 06/28/17 09:51 Dose: 0.3 mg Ergocalciferol (Drisdol 50,000 Intl Units Cap) 1 cap PO Q7D [facility] Last Admin: 06/24/17 15:59 Dose: 1 cap Furosemide (Lasix) 40 mg PO DAILY [facility] Hydralazine HCl (Apresoline) 75 mg PO TID [facility] Last Admin: 06/28/17 09:56 Dose: 75 mg Losartan Potassium (Cozaar) 50 mg PO DAILY [facility] Last Admin: 06/28/17 09:50 Dose: 50 mg Pantoprazole Sodium (Protonix Ec Tab) 40 mg PO 0600 [facility] Last Admin: 06/28/17 05:25 Dose: 40 mg - Labs Labs: 06/28/17 09:40 06/28/17 09:40 PT 12.9 SECONDS (9.4-12.5) H 06/23/17 13:30 INR 1.13 (0.93-1.08) H 06/23/17 13:30 APTT 26.1 Seconds (25.1-36.5) 06/23/17 13:30 - Constitutional Appears: No Acute Distress - Head Exam Head Exam: NORMAL INSPECTION - Neurological Exam Neurological Exam: Alert, Awake, Oriented x3 Neuro motor strength exam: Left Upper Extremity: 5, Right Upper Extremity: 5, Left Lower Extremity: 5, Right Lower Extremity: 5 Additional comments: He is alert, oriented in al spheres. He is able to follow all simple commands. Sensation is intact. Assessment and Plan (1) Thalamic hemorrhage Assessment & Plan: Case discussed with Dr. George, continue all current medical, physical, and occupational therapies. Recommend repeat CT scan of the head to evaluate the evolution of the thalamic hemorrhage. Recommend blood pressure control and treat any electrolyte abnormalities. Status: Acute
--- NOTE | 2017-06-28 13:30 | CT ---
PROCEDURE: CT HEAD WITHOUT CONTRAST. HISTORY: follow up thalamic hemorrhage COMPARISON: 06/25/2017 CT TECHNIQUE: Axial computed tomography images were obtained through the head/brain without intravenous contrast. Radiation dose: Total exam DLP = 901 mGy-cm. This CT exam was performed using one or more of the following dose reduction techniques: Automated exposure control, adjustment of the mA and/or kV according to patient size, and/or use of iterative reconstruction technique. FINDINGS: HEMORRHAGE: The small hemorrhage seen on the inferior surface of the left basal ganglia has slightly decreased in size and density. BRAIN: No mass effect or edema. Subcortical lucencies are unchanged VENTRICLES: Unremarkable. No hydrocephalus. CALVARIUM: Unremarkable. PARANASAL SINUSES: Unremarkable as visualized. No significant inflammatory changes. MASTOID AIR CELLS: Unremarkable as visualized. No inflammatory changes. OTHER FINDINGS: None. IMPRESSION: Decrease in size and density of the left-sided basal ganglia hemorrhage
[2017-06-28 13:47] VITALS: PULSE 60
--- NOTE | 2017-06-28 15:29 | CP.PCM.DIS ---
<Gagandeep Magana - Last Filed: 06/28/17 15:18> Provider - Provider Date of Admission: 06/23/17 14:30 Attending physician: Renan Marroquin MD Primary care physician: Monae Salazar MD Consults: ICU: [facility] Cardio: [place] Nephro: Jacob Ophtho: [place] Neuro: George Time Spent in preparation of Discharge (in minutes): 53 Hospital Course - Lab Results Lab Results: Micro Results 06/23/17 18:06 Nose MRSA Culture (Admit) - Final MRSA NOT DETECTED Most Recent Lab Values WBC 8.5 10^3/ul (4.5-11.0) 06/28/17 09:40 RBC 4.27 10^6/uL (3.5-6.1) 06/28/17 09:40 Hgb 14.1 g/dL (14.0-18.0) 06/28/17 09:40 Hct 41.1 % (42.0-52.0) L 06/28/17 09:40 MCV 96.3 fl (80.0-105.0) D 06/28/17 09:40 MCH 33.0 pg (25.0-35.0) 06/28/17 09:40 MCHC 34.3 g/dl (31.0-37.0) 06/28/17 09:40 RDW 14.7 % (11.5-14.5) H 06/28/17 09:40 Plt Count 270 10^3/uL (120.0-450.0) 06/28/17 09:40 MPV 9.2 fl (7.0-11.0) 06/28/17 09:40 Gran % 68.3 % (50.0-68.0) H 06/28/17 09:40 Lymph % (Auto) 21.6 % (22.0-35.0) L 06/28/17 09:40 [place] % (Auto) 4.5 % (1.0-6.0) 06/28/17 09:40 Eos % (Auto) 5.2 % (1.5-5.0) H 06/28/17 09:40 Baso % (Auto) 0.4 % (0.0-3.0) 06/28/17 09:40 Gran # 5.83 (1.4-6.5) 06/28/17 09:40 Lymph # (Auto) 1.8 (1.2-3.4) 06/28/17 09:40 [place] # (Auto) 0.4 (0.1-0.6) 06/28/17 09:40 Eos # (Auto) 0.4 (0.0-0.7) 06/28/17 09:40 Baso # (Auto) 0.03 K/mm3 (0.0-2.0) 06/28/17 09:40 Haptoglobin <15 mg/dL (43-212) L 06/23/17 19:55 PT 12.9 SECONDS (9.4-12.5) H 06/23/17 13:30 INR 1.13 (0.93-1.08) H 06/23/17 13:30 APTT 26.1 Seconds (25.1-36.5) 06/23/17 13:30 pO2 28 mm/Hg (30-55) L 06/23/17 13:30 VBG pH 7.46 (7.32-7.43) H 06/23/17 13:30 VBG pCO2 43.0 (40-60) 06/23/17 13:30 VBG HCO3 30.6 mmol/l (21-28) H 06/23/17 13:30 VBG Total CO2 31.9 mmol.L (22-28) H 06/23/17 13:30 VBG O2 Sat (Calc) 61.2 % (40-65) 06/23/17 13:30 VBG Base Excess 6.0 mmol/L (0.0-2.0) H 06/23/17 13:30 VBG Potassium 3.2 mmol/L (3.6-5.2) L 06/23/17 13:30 Sodium 124.0 mmol/L (132-148) L 06/23/17 13:30 Chloride 86.0 mmol/L (98-107) L 06/23/17 13:30 Glucose 108 mg/dl (75-110) 06/23/17 13:30 Lactate 1.3 mmol/L (0.7-2.1) 06/23/17 13:30 FiO2 21.0 % 06/23/17 13:30 Sodium 135 mmol/L (132-148) 06/28/17 09:40 Potassium 4.8 mmol/L (3.6-5.0) 06/28/17 09:40 Chloride 99 mmol/L (98-107) 06/28/17 09:40 Carbon Dioxide 29 mmol/L (21-33) 06/28/17 09:40 Anion Gap 13 (10-20) 06/28/17 09:40 BUN 53 mg/dL (7-21) H 06/28/17 09:40 Creatinine 3.2 mg/dl (0.8-1.5) H 06/28/17 09:40 Est GFR ( Amer) 27 06/28/17 09:40 Est GFR (Non-Af Amer) 22 06/28/17 09:40 POC Glucose (mg/dL) 115 mg/dL (65-110) H 06/24/17 17:23 Random Glucose 106 mg/dL (70-110) 06/28/17 09:40 Hemoglobin A1c 5.4 % (4.2-6.5) 06/23/17 13:30 Serum Osmolality 269 mosm/kg (272-300) L 06/23/17 19:55 Calcium 9.7 mg/dL (8.4-10.5) 06/28/17 09:40 Phosphorus 5.5 mg/dL (2.5-4.5) H 06/26/17 05:15 Magnesium 2.2 mg/dL (1.7-2.2) 06/26/17 05:15 Total Bilirubin 0.4 mg/dL (0.2-1.3) 06/28/17 09:40 AST 68 U/L (17-59) H 06/28/17 09:40 ALT 96 U/L (7-56) H 06/28/17 09:40 Alkaline Phosphatase 73 U/L (38-126) 06/28/17 09:40 Lactate Dehydrogenase 2298 U/L (333-699) H 06/24/17 01:25 Total Creatine Kinase 792 U/L (35-230) H 06/24/17 01:25 CK-MB (CK-2) 4.2 ng/mL (0.0-3.6) H 06/24/17 01:25 CK-MB (CK-2) % Cancelled 06/23/17 13:30 Troponin I 0.60 ng/mL H* 06/24/17 01:25 NT-Pro-B Natriuret Pep 1040 pg/mL (0-450) H 06/27/17 15:59 Total Protein 7.0 g/dL (5.8-8.3) 06/28/17 09:40 Albumin 3.7 g/dL (3.0-4.8) 06/28/17 09:40 Globulin 3.3 gm/dL 06/28/17 09:40 Albumin/Globulin Ratio 1.1 (1.1-1.8) 06/28/17 09:40 Triglycerides 94 mg/dL (35-160) 06/24/17 05:50 Cholesterol 217 mg/dL (130-200) H 06/24/17 05:50 LDL Cholesterol Direct 94 mg/dL (0-129) 06/24/17 05:50 HDL Cholesterol 86 mg/dL (29-60) H 06/24/17 05:50 25-OH Vitamin D Total < 12.8 NG/ML (30.0-100.0) L 06/24/17 05:50 Procalcitonin 0.29 NG/ML (0.19-0.49) 06/23/17 13:30 PTH Intact Whole Molec 217 pg/mL (14-64) H 06/23/17 19:55 Plasma Metanephrine 32 pg/mL (<=57) 06/25/17 07:00 Plasma Normetanephrine 120 pg/mL (<=148) 06/25/17 07:00 Plas Total Metaneph 152 pg/mL (<=205) 06/25/17 07:00 Venous Blood Potassium 3.2 mmol/L (3.6-5.2) L 06/23/17 13:30 Urine Color Yellow (YELLOW) 06/23/17 13:30 Urine Appearance Clear (CLEAR) 06/23/17 13:30 Urine pH 7.0 (4.7-8.0) 06/23/17 13:30 Ur Specific [place] 1.015 (1.005-1.035) 06/23/17 13:30 Urine Protein >=300 mg/dL (<30 mg/dL) H 06/23/17 13:30 Urine Glucose (UA) Negative mg/dL (NEGATIVE) 06/23/17 13:30 Urine Ketones Trace mg/dL (NEGATIVE) H 06/23/17 13:30 Urine Blood Large (NEGATIVE) H 06/23/17 13:30 Urine Nitrate Negative (NEGATIVE) 06/23/17 13:30 Urine Bilirubin Negative (NEGATIVE) 06/23/17 13:30 Urine Urobilinogen 0.2 E.U./dL (<1 E.U./dL) 06/23/17 13:30 Ur Leukocyte Esterase Negative Roberto/uL (NEGATIVE) 06/23/17 13:30 Urine RBC 15 - 20 /hpf (0-2) 06/23/17 13:30 Urine WBC 0 - 2 /hpf (0-6) 06/23/17 13:30 Ur Epithelial Cells 0 - 2 /hpf (0-5) 06/23/17 13:30 Urine Bacteria Few (NEG) 06/23/17 13:30 Urine Osmolality 237 mosm/kg (300-1000) L 06/23/17 18:06 U Random Total Protein 103 mg/L 06/23/17 18:06 Ur Random Sodium 95 meq/L 06/23/17 18:06 Urine Microalbumin 513.0 mg/L (0.0-16.6) H 06/23/17 18:06 Urine Opiates Screen Negative (NEGATIVE) 06/23/17 13:30 Urine Methadone Screen Negative (NEGATIVE) 06/23/17 13:30 Ur Barbiturates Screen Negative (NEGATIVE) 06/23/17 13:30 Ur Phencyclidine Scrn Negative (NEGATIVE) 06/23/17 13:30 Ur Amphetamines Screen Negative (NEGATIVE) 06/23/17 13:30 U Benzodiazepines Scrn Negative (NEGATIVE) 06/23/17 13:30 U Oth Cocaine Metabols Negative (NEGATIVE) 06/23/17 13:30 U Cannabinoids Screen Positive (NEGATIVE) H 06/23/17 13:30 Rheumatoid Factor TNP 06/23/17 19:55 YESENIA Screen TNP 06/23/17 19:55 YESENIA Titer TNP 06/23/17 19:55 YESENIA Pattern TNP 06/23/17 19:55 SS-A Antibody TNP 06/23/17 19:55 SS-B Antibody TNP 06/23/17 19:55 Sm (Reynoso) Antibody TNP 06/23/17 19:55 SM/FERRYBOAT CAPTAIN Antibody TNP 06/23/17 19:55 Scl-70 Antibody TNP 06/23/17 19:55 Anti-ds DNA Titer (Crith) TNP 06/23/17 19:55 Anti-ds DNA (Crithidia) TNP 06/23/17 19:55 Ribosomal P Prot Ab TNP 06/23/17 19:55 Anti-Mitochondrial Titr TNP 06/23/17 19:55 Anti-Mitochondrial Ab TNP 06/23/17 19:55 Actin IgG Antibody TNP 06/23/17 19:55 Striated Muscle Ab TNP 06/23/17 19:55 Myocardial Ab Titer TNP 06/23/17 19:55 Anti-Myocardial Ab TNP 06/23/17 19:55 Reticulin Ab Titer TNP 06/23/17 19:55 Reticulin IgA Antibody TNP 06/23/17 19:55 Thyroperoxidase Ab TNP 06/23/17 19:55 Anti-Parietal Cell Ab TNP 06/23/17 19:55 Complement C3 TNP 06/23/17 19:55 Complement C4 TNP 06/23/17 19:55 Tot Complement (CH50) >60 U/mL (31-60) H 06/23/17 19:55 Hep Bs Antigen Negative (NEGATIVE) 06/24/17 05:50 Hep Bs Antibody Negative (NEGATIVE) 06/24/17 05:50 Hep B Core IgM Ab Negative (NEGATIVE) 06/24/17 05:50 Hepatitis C Antibody Negative (NEGATIVE) 06/24/17 05:50 HIV 1&2 Ag/Ab, 4th Gen Nonreactive (Nonreactive) 06/24/17 06:30 HIV 1&2 Antibody Screen Negative (NEGATIVE) 06/23/17 13:30 Influenza Type A Ab 1:128 titer (<1:8) H 06/23/17 19:55 Influenza Type B Ab <1:8 titer (<1:8) 06/23/17 19:55 - Hospital Course Hospital Course: 37 year old male with a past medical history significant for PUD, 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 On arrival to the ED, patient's BP was 250/173. Patient was started on Cardene drip and placed under ICU care. His troponin was found to be elevated along with his renal function tests. He was also found to have hyponatremia and hyperkalemia. Intensive Care, Cardiology, Nephrology and Ophthalmology were consulted. Patient's blood pressure gradually decreased until he no longer required IV Cardene and he was placed on PO Hydralazine, Clonidine, Cozaar, Minoxidil and Coreg. Initial CT head on admission showed no intracranial hemorrhage but a repeat CT head showed an acute hemorrhage along the inferior surface of the left basal ganglia measuring 5x16mm and multiple chronic subcortical lucencies consistent with microvascular disease. Neurology was consulted. An MRI/MRA brain confirmed medial left temporal lobe hemorrhage, stable in size. Patient was placed on neurochecks and fall precautions. All AC/ AT was stopped. Patient was found to have an MARIA G on his CKD. All secondary causes of MARIA G and HTN were ruled out. Renal Artery Duplex showed no significant stenosis. He was started on weekly vitamin d supplementation. Patients troponin was elevated on admission and subsequently trended downwards. Per cardio, patient was not a candidate for cath and was treated medically for NSTEMI. A CT Chest/Abdomen/Pelvis showed subtle diffuse groundglass pulmonary consolidation with a lower lobe predominance suspicious for pulmonary edema and an echo showed a decreased LVEF of 41.0%, severe concentric LVH, and moderately severe global hypokinesis. Patient also had elevated BNP. However Lasix was held in setting of MARIA G and clinically improved. His presenting hypervolemic hypoosmolar hyponatremia resolved along with his hypokalemia. Patient was discharged on with strict instructions for follow up recommendations and instructions on discharge medications. - Date & Time of H&P Date of H&P: 18 Time of H&P: 15:19 Discharge Exam - Head Exam Head Exam: ATRAUMATIC, NORMAL INSPECTION, NORMOCEPHALIC - Eye Exam Eye Exam: EOMI, Normal appearance, PERRL Pupil Exam: NORMAL ACCOMODATION, PERRL - ENT Exam ENT Exam: Mucous Membranes Moist, Normal Exam - Neck Exam Neck exam: Full Rom, Normal Inspection - Respiratory Exam Respiratory Exam: Clear to PA & Lateral, NORMAL BREATHING PATTERN, UNREMARKABLE - Cardiovascular Exam Cardiovascular Exam: REGULAR RHYTHM, RRR, +S1, +S2 - GI/Abdominal Exam GI & Abdominal Exam: Normal Bowel Sounds, Soft, Unremarkable - Extremities Exam Extremities exam: full ROM, normal capillary refill, normal inspection, pedal pulses present - Back Exam Back exam: FULL ROM, NORMAL INSPECTION - Neurological Exam Neurological exam: Alert, CN II-XII Intact, Normal Gait, Oriented x3, Reflexes Normal - Psychiatric Exam Psychiatric exam: Normal Affect, Normal Mood - Skin Skin Exam: Dry, Intact, Normal Color, Warm Discharge Plan - Discharge Medications Prescriptions: Carvedilol [Coreg] 6.25 mg PO 0600,1800 #60 tab cloNIDine [Catapres] 0.3 mg PO TID #90 tab Ergocalciferol [Drisdol 50,000 Intl Units Cap] 1 cap PO Q7D #4 cap Furosemide [Lasix] 40 mg PO DAILY #30 tab hydrALAZINE [Apresoline] 75 mg PO TID #90 tab Losartan [Cozaar] 50 mg PO DAILY #90 tab Simvastatin [Zocor] 1 tab PO HS #30 tablet - Follow Up Plan Condition: STABLE Disposition: HOME/ ROUTINE Instructions: DASH Diet, High Blood Pressure Emergencies, Renal Failure Diet ( DC), Hyponatremia (DC), Hyponatremia (GEN), Weakness (ED), Weakness (GEN), Hypertension (DC), Hypertension (GEN) Additional Instructions: - Please obtain BP machine and monitor your blood pressure on a daily bases, - Keep logs of your BP for your primary care to review - Please follow up with your primary care doctor in 1 week - Please follow up with the certified mortician- Dr James call [phone] - No Aspirin due to brain bleed - Please go to the nearest emergency room if you experience headache, weakness/ numbness/tingling, worsening in vision, lightheadedness, chest pain, worsening shortness of breath, fever/chills. Referrals: Shivam James MD [Staff Provider] - 1 Week Monae Salazar MD [Primary Care Provider] - <Renan Marroquin - Last Filed: 06/28/17 16:07> Provider - Provider Date of Admission: 06/23/17 14:30 Attending physician: Renan Marroquin MD Primary care physician: Monae Salazar MD Hospital Course - Lab Results Lab Results: Micro Results 06/23/17 18:06 Nose MRSA Culture (Admit) - Final MRSA NOT DETECTED Most Recent Lab Values WBC 8.5 10^3/ul (4.5-11.0) 06/28/17 09:40 RBC 4.27 10^6/uL (3.5-6.1) 06/28/17 09:40 Hgb 14.1 g/dL (14.0-18.0) 06/28/17 09:40 Hct 41.1 % (42.0-52.0) L 06/28/17 09:40 MCV 96.3 fl (80.0-105.0) D 06/28/17 09:40 MCH 33.0 pg (25.0-35.0) 06/28/17 09:40 MCHC 34.3 g/dl (31.0-37.0) 06/28/17 09:40 RDW 14.7 % (11.5-14.5) H 06/28/17 09:40 Plt Count 270 10^3/uL (120.0-450.0) 06/28/17 09:40 MPV 9.2 fl (7.0-11.0) 06/28/17 09:40 Gran % 68.3 % (50.0-68.0) H 06/28/17 09:40 Lymph % (Auto) 21.6 % (22.0-35.0) L 06/28/17 09:40 [place] % (Auto) 4.5 % (1.0-6.0) 06/28/17 09:40 Eos % (Auto) 5.2 % (1.5-5.0) H 06/28/17 09:40 Baso % (Auto) 0.4 % (0.0-3.0) 06/28/17 09:40 Gran # 5.83 (1.4-6.5) 06/28/17 09:40 Lymph # (Auto) 1.8 (1.2-3.4) 06/28/17 09:40 [place] # (Auto) 0.4 (0.1-0.6) 06/28/17 09:40 Eos # (Auto) 0.4 (0.0-0.7) 06/28/17 09:40 Baso # (Auto) 0.03 K/mm3 (0.0-2.0) 06/28/17 09:40 Haptoglobin <15 mg/dL (43-212) L 06/23/17 19:55 PT 12.9 SECONDS (9.4-12.5) H 06/23/17 13:30 INR 1.13 (0.93-1.08) H 06/23/17 13:30 APTT 26.1 Seconds (25.1-36.5) 06/23/17 13:30 pO2 28 mm/Hg (30-55) L 06/23/17 13:30 VBG pH 7.46 (7.32-7.43) H 06/23/17 13:30 VBG pCO2 43.0 (40-60) 06/23/17 13:30 VBG HCO3 30.6 mmol/l (21-28) H 06/23/17 13:30 VBG Total CO2 31.9 mmol.L (22-28) H 06/23/17 13:30 VBG O2 Sat (Calc) 61.2 % (40-65) 06/23/17 13:30 VBG Base Excess 6.0 mmol/L (0.0-2.0) H 06/23/17 13:30 VBG Potassium 3.2 mmol/L (3.6-5.2) L 06/23/17 13:30 Sodium 124.0 mmol/L (132-148) L 06/23/17 13:30 Chloride 86.0 mmol/L (98-107) L 06/23/17 13:30 Glucose 108 mg/dl (75-110) 06/23/17 13:30 Lactate 1.3 mmol/L (0.7-2.1) 06/23/17 13:30 FiO2 21.0 % 06/23/17 13:30 Sodium 135 mmol/L (132-148) 06/28/17 09:40 Potassium 4.8 mmol/L (3.6-5.0) 06/28/17 09:40 Chloride 99 mmol/L (98-107) 06/28/17 09:40 Carbon Dioxide 29 mmol/L (21-33) 06/28/17 09:40 Anion Gap 13 (10-20) 06/28/17 09:40 BUN 53 mg/dL (7-21) H 06/28/17 09:40 Creatinine 3.2 mg/dl (0.8-1.5) H 06/28/17 09:40 Est GFR ( Amer) 27 06/28/17 09:40 Est GFR (Non-Af Amer) 22 06/28/17 09:40 POC Glucose (mg/dL) 115 mg/dL (65-110) H 06/24/17 17:23 Random Glucose 106 mg/dL (70-110) 06/28/17 09:40 Hemoglobin A1c 5.4 % (4.2-6.5) 06/23/17 13:30 Serum Osmolality 269 mosm/kg (272-300) L 06/23/17 19:55 Calcium 9.7 mg/dL (8.4-10.5) 06/28/17 09:40 Phosphorus 5.5 mg/dL (2.5-4.5) H 06/26/17 05:15 Magnesium 2.2 mg/dL (1.7-2.2) 06/26/17 05:15 Total Bilirubin 0.4 mg/dL (0.2-1.3) 06/28/17 09:40 AST 68 U/L (17-59) H 06/28/17 09:40 ALT 96 U/L (7-56) H 06/28/17 09:40 Alkaline Phosphatase 73 U/L (38-126) 06/28/17 09:40 Lactate Dehydrogenase 2298 U/L (333-699) H 06/24/17 01:25 Total Creatine Kinase 792 U/L (35-230) H 06/24/17 01:25 CK-MB (CK-2) 4.2 ng/mL (0.0-3.6) H 06/24/17 01:25 CK-MB (CK-2) % Cancelled 06/23/17 13:30 Troponin I 0.60 ng/mL H* 06/24/17 01:25 NT-Pro-B Natriuret Pep 1040 pg/mL (0-450) H 06/27/17 15:59 Total Protein 7.0 g/dL (5.8-8.3) 06/28/17 09:40 Albumin 3.7 g/dL (3.0-4.8) 06/28/17 09:40 Globulin 3.3 gm/dL 06/28/17 09:40 Albumin/Globulin Ratio 1.1 (1.1-1.8) 06/28/17 09:40 Triglycerides 94 mg/dL (35-160) 06/24/17 05:50 Cholesterol 217 mg/dL (130-200) H 06/24/17 05:50 LDL Cholesterol Direct 94 mg/dL (0-129) 06/24/17 05:50 HDL Cholesterol 86 mg/dL (29-60) H 06/24/17 05:50 25-OH Vitamin D Total < 12.8 NG/ML (30.0-100.0) L 06/24/17 05:50 Procalcitonin 0.29 NG/ML (0.19-0.49) 06/23/17 13:30 PTH Intact Whole Molec 217 pg/mL (14-64) H 06/23/17 19:55 Plasma Metanephrine 32 pg/mL (<=57) 06/25/17 07:00 Plasma Normetanephrine 120 pg/mL (<=148) 06/25/17 07:00 Plas Total Metaneph 152 pg/mL (<=205) 06/25/17 07:00 Venous Blood Potassium 3.2 mmol/L (3.6-5.2) L 06/23/17 13:30 Urine Color Yellow (YELLOW) 06/23/17 13:30 Urine Appearance Clear (CLEAR) 06/23/17 13:30 Urine pH 7.0 (4.7-8.0) 06/23/17 13:30 Ur Specific [place] 1.015 (1.005-1.035) 06/23/17 13:30 Urine Protein >=300 mg/dL (<30 mg/dL) H 06/23/17 13:30 Urine Glucose (UA) Negative mg/dL (NEGATIVE) 06/23/17 13:30 Urine Ketones Trace mg/dL (NEGATIVE) H 06/23/17 13:30 Urine Blood Large (NEGATIVE) H 06/23/17 13:30 Urine Nitrate Negative (NEGATIVE) 06/23/17 13:30 Urine Bilirubin Negative (NEGATIVE) 06/23/17 13:30 Urine Urobilinogen 0.2 E.U./dL (<1 E.U./dL) 06/23/17 13:30 Ur Leukocyte Esterase Negative Roberto/uL (NEGATIVE) 06/23/17 13:30 Urine RBC 15 - 20 /hpf (0-2) 06/23/17 13:30 Urine WBC 0 - 2 /hpf (0-6) 06/23/17 13:30 Ur Epithelial Cells 0 - 2 /hpf (0-5) 06/23/17 13:30 Urine Bacteria Few (NEG) 06/23/17 13:30 Urine Osmolality 237 mosm/kg (300-1000) L 06/23/17 18:06 U Random Total Protein 103 mg/L 06/23/17 18:06 Ur Random Sodium 95 meq/L 06/23/17 18:06 Urine Microalbumin 513.0 mg/L (0.0-16.6) H 06/23/17 18:06 Urine Opiates Screen Negative (NEGATIVE) 06/23/17 13:30 Urine Methadone Screen Negative (NEGATIVE) 06/23/17 13:30 Ur Barbiturates Screen Negative (NEGATIVE) 06/23/17 13:30 Ur Phencyclidine Scrn Negative (NEGATIVE) 06/23/17 13:30 Ur Amphetamines Screen Negative (NEGATIVE) 06/23/17 13:30 U Benzodiazepines Scrn Negative (NEGATIVE) 06/23/17 13:30 U Oth Cocaine Metabols Negative (NEGATIVE) 06/23/17 13:30 U Cannabinoids Screen Positive (NEGATIVE) H 06/23/17 13:30 Rheumatoid Factor TNP 06/23/17 19:55 YESENIA Screen TNP 06/23/17 19:55 YESENIA Titer TNP 06/23/17 19:55 YESENIA Pattern TNP 06/23/17 19:55 SS-A Antibody TNP 06/23/17 19:55 SS-B Antibody TNP 06/23/17 19:55 Sm (Reynoso) Antibody TNP 06/23/17 19:55 SM/FERRYBOAT CAPTAIN Antibody TNP 06/23/17 19:55 Scl-70 Antibody TNP 06/23/17 19:55 Anti-ds DNA Titer (Crith) TNP 06/23/17 19:55 Anti-ds DNA (Crithidia) TNP 06/23/17 19:55 Ribosomal P Prot Ab TNP 06/23/17 19:55 Anti-Mitochondrial Titr TNP 06/23/17 19:55 Anti-Mitochondrial Ab TNP 06/23/17 19:55 Actin IgG Antibody TNP 06/23/17 19:55 Striated Muscle Ab TNP 06/23/17 19:55 Myocardial Ab Titer TNP 06/23/17 19:55 Anti-Myocardial Ab TNP 06/23/17 19:55 Reticulin Ab Titer TNP 06/23/17 19:55 Reticulin IgA Antibody TNP 06/23/17 19:55 Thyroperoxidase Ab TNP 06/23/17 19:55 Anti-Parietal Cell Ab TNP 06/23/17 19:55 Complement C3 TNP 06/23/17 19:55 Complement C4 TNP 06/23/17 19:55 Tot Complement (CH50) >60 U/mL (31-60) H 06/23/17 19:55 Hep Bs Antigen Negative (NEGATIVE) 06/24/17 05:50 Hep Bs Antibody Negative (NEGATIVE) 06/24/17 05:50 Hep B Core IgM Ab Negative (NEGATIVE) 06/24/17 05:50 Hepatitis C Antibody Negative (NEGATIVE) 06/24/17 05:50 HIV 1&2 Ag/Ab, 4th Gen Nonreactive (Nonreactive) 06/24/17 06:30 HIV 1&2 Antibody Screen Negative (NEGATIVE) 06/23/17 13:30 Influenza Type A Ab 1:128 titer (<1:8) H 06/23/17 19:55 Influenza Type B Ab <1:8 titer (<1:8) 06/23/17 19:55 Attending/Attestation - Attestation I have personally seen and examined this patient.: Yes I have fully participated in the care of the patient.: Yes I have reviewed all pertinent clinical information, including history, physical exam and plan: Yes Notes (Text): 06/28/17 16:04 attending note; Patient seen and examined with resident. 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 Upon admission, he was found to have acute on chronic kidney failure, hypervolemic hypoosmolar hyponatremia, elevated troponins, back pain, cough productive of yellowish sputum, headache, blurry vision and CHF exacerbation. Patient was admitted to ICU and treated with cardene drip. currently on cozaar , coreg, hydralazine, lasix and clonidine. BP has improved. Repeat CT head revealed acute hemorrhage in left basal ganglia. Aspirin and heparin was discontinued. neurology evaluation appreciated. MRI showed bleed chronic microvascular changes. Continue statins. Echo showed ejection fraction of 35-40% with moderate global hypokinesis. chronic kidney disease; creatinine baseline. Patient had renal biopsy showed hypertensive nephrosclerosis. Past workup for secondary hypertension was negative in 04/28. Patient needs close nephrology follow up as outpatient. PT evaluation appreciated. Discharge home today. Upon discharge patient will follow up with Dr Salazar. Diagnosis; Hypertensive emergency Cardiomyopathy Hypertensive nephrosclerosis Chronic kidney disease Hemorrhagic CVA
--- NOTE | 2017-06-28 17:08 | PN ---
DATE: SUBJECTIVE: The patient denies any chest pain or shortness of breath. No headache today. PHYSICAL EXAMINATION: VITAL SIGNS: Blood pressure 134/93, heart rate 56, temperature 98.1, respirations 18. HEENT: Normocephalic. CHEST: Clear. HEART: S1 and S2, regular. EXTREMITIES: No edema. LABORATORY DATA: Today's BUN and creatinine are 53 and 3.2 respectively. A repeat chest CT scan was performed today and the report is still pending. ASSESSMENT: 1. Uncontrolled hypertension. 2. Hemorrhagic left basal ganglia infarct. 3. Chronic insufficiency. 4. Systolic heart failure. RECOMMENDATIONS: Continue hydralazine 75 mg t.i.d., clonidine 0.2 mg t.i.d., Lipitor 20 mg once a day, and start minoxidil at 2.5 mg daily. Follow up official report of the repeat chest CT scan done today. Alfonso Metzger MD
[2017-06-30 02:20] LABS: ALDO/PRA RATIO 0.4 Ratio (0.9-28.9)
== END 2017-06-28 15:23 | disposition home or self-care (01) | DRG 291 ==
LOC: ED 13:13 → ERH 14:30 → ICU 15:58 → 3RSO 06-26 14:15
PROVIDERS: ADMIT Hospitalist; ATTEND Internal Medicine
DX: I13.0 Hypertensive heart and chronic kidney disease with heart failure and stage 1 through stage 4 chronic kidney disease, or unspecified chronic kidney disease (principal); I16.1 Hypertensive emergency; I61.0 Nontraumatic intracerebral hemorrhage in hemisphere, subcortical; M31.1 Thrombotic microangiopathy; I50.23 Acute on chronic systolic (congestive) heart failure; N17.9 Acute kidney failure, unspecified; E87.1 Hypo-osmolality and hyponatremia; N18.3 Chronic kidney disease, stage 3 (moderate); I43 Cardiomyopathy in diseases classified elsewhere; G93.89 Other specified disorders of brain; I27.20 Pulmonary hypertension, unspecified; E87.6 Hypokalemia; I25.10 Atherosclerotic heart disease of native coronary artery without angina pectoris; E87.5 Hyperkalemia; R80.9 Proteinuria, unspecified; E78.5 Hyperlipidemia, unspecified; G47.00 Insomnia, unspecified; D64.9 Anemia, unspecified; F17.210 Nicotine dependence, cigarettes, uncomplicated